=== PATIENT | female | born 1995 | race Caucasian/White ===

== ENCOUNTER 2016-11-27 15:03 | Inpatient (IN) | payer MEDICAID, OTHER ==
[~2016-11-27] VITALS: Ht 154.9 cm; Wt 91.4 kg
[~2016-11-27 15:03] MED LIST: AMBI12.52 PO; CELE20TA PO; PRENTAB74 PO; PROZ20CA11 PO; TRAZ50TA11 PO; VIST50CA PO; [UNRECOGNIZED DRUG - REMARK]
[2016-11-27] MEDS ORDERED: ATOR1TAB21 PO (15:12)
[2016-11-27] MEDS ORDERED: MELA5TAB20 PO (15:12)
[2016-11-27] MEDS ORDERED: HYDR-3363 PO (15:12)
[2016-11-27] MEDS ORDERED: FLUO20CA8 PO (15:12)
[2016-11-27] MEDS ORDERED: RANI150T PO (15:12)
[2016-11-27] MEDS ORDERED: PHEN30CA2 PO (15:12)
[2016-11-27] MEDS ORDERED: METF-414 PO (15:12)
[2016-11-27 15:24] LABS: BASO % 0.4 % (0.0-1.0); EOS # 0.2 K/mm3 (0.0-0.50); EOS % 2.9 % (0.0-3.0); LARGE UNSTAINED CELL # 0.2 K/mm3 (0.0-0.4); LARGE UNSTAINED CELL % 2.8 % (0.0-4.0); LYMPH # 2.3 K/mm3 (1.5-6.5); LYMPH % 32.7 % (24.0-44.0); MEAN CORPUSCULAR HEMOGLOBIN 30.7 pg (27.0-33.0); MEAN CORPUSCULAR HGB CONC 34.2 g/dl (32.0-36.5); MEAN CORPUSCULAR VOLUME 89.8 fl (80.0-96.0); MONO # 0.4 K/mm3 (0.0-0.8); MONO % 6.1 % (0.0-5.0); NEUTROPHILS # 3.9 K/mm3 (1.8-7.7); NEUTROPHILS % 55.2 % (36.0-66.0); PLATELET COUNT, AUTOMATED 240 k/mm3 (150-450); RED CELL DISTRIBUTION WIDTH 13.4 % (11.5-14.5); WHITE BLOOD COUNT 7.1 K/mm3 (4.0-10.0)
[2016-11-27 15:51] LABS: ALBUMIN 3.7 GM/DL (3.2-5.2); ALBUMIN/GLOBULIN RATIO 1.19 (1.00-1.93); ALKALINE PHOSPHATASE 127 U/L (45-117); ALT/SGPT 25 U/L (12-78); ANION GAP 8 MEQ/L (8-16); AST/SGOT 16 U/L (15-37); BILIRUBIN,DIRECT < 0.1 MG/DL (0.0-0.2); BILIRUBIN,TOTAL 0.3 MG/DL (0.2-1.0); BLOOD UREA NITROGEN 12 MG/DL (7-18); CARBON DIOXIDE LEVEL 26 MEQ/L (21-32); CHLORIDE LEVEL 105 MEQ/L (98-107); CREATININE FOR GFR 0.79 MG/DL (0.55-1.02); GLOMERULAR FILTRATION RATE > 60.0 (>60); GLUCOSE, FASTING 212 MG/DL (70-105); SODIUM LEVEL 139 MEQ/L (136-145); TOTAL PROTEIN 6.8 GM/DL (6.4-8.2)
[2016-11-27 16:11] LABS: METHADONE URINE NEGATIVE (NEGATIVE)
[2016-11-27] MEDS ORDERED: CHARCOAL ACTIVATED LIQUID 25 GM/120 ML BTL PO ONE (16:30)
[2016-11-27 19:17] LABS: ALBUMIN 3.6 GM/DL (3.2-5.2); ALKALINE PHOSPHATASE 120 U/L (45-117); ALT/SGPT 26 U/L (12-78); AST/SGOT 12 U/L (15-37); BILIRUBIN,DIRECT 0.1 MG/DL (0.0-0.2); BILIRUBIN,TOTAL 0.2 MG/DL (0.2-1.0); TOTAL PROTEIN 6.6 GM/DL (6.4-8.2)
[2016-11-27] MEDS ORDERED: TRAM50TA2 PO (21:29)
--- NOTE | 2016-11-27 21:43 | ECGEPIP ---
Stationary ECG Study [facility] - ED Test Date: 2016-11-27 Pat Name: LILIANA GOMEZ Department: Room: - Gender: F In Home Nanny: selina : 1995 Requested By: CARLITOS Sultana Order Number: [id number] Reading MD: Linn Rene Measurements Intervals [place] Rate: 109 P: 51 LA: 134 QRS: 44 QRSD: 86 T: -1 QT: 260 QTc: 350 Interpretive Statements SINUS TACHYCARDIA NONSPECIFIC T-WAVE ABNORMALITY ABNORMAL RHYTHM ECG INCREASE RATE 07/21/14 Electronically Signed On 11-27-2016 21:43:25 EDT by Linn Rene
[2016-11-27] MEDS ORDERED: MOM 30ML SUSPENSION UDC PO PRN (23:30)
[2016-11-28 06:33] VITALS: BP 113/64
[2016-11-28] MEDS: FLUoxetine 20 MG CAP PO SCH (08:31)
[2016-11-28] MEDS: ATORVASTATIN 20 MG TAB PO SCH (08:31)
[2016-11-28] MEDS: NICOTINE 14 MG/24 HR TRANSDERMAL TD SCH (08:32)
[2016-11-28] MEDS ORDERED: raNITIdine SYRUP 150 MG/10 ML UDC PO SCH (09:00)
[2016-11-28 11:41] LABS: CONTROL LINE HCG INT CTR LINE PRESENT
[2016-11-28] MEDS: metFORMIN XR 500MG TAB *GLUCOPHAGE XR PO SCH ×2 (12:17→19:04)
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
[2016-11-28 18:00] VITALS: BP 173/80
[2016-11-28] MEDS ORDERED: metFORMIN XR 500MG TAB *GLUCOPHAGE XR PO SCH (18:00)
[2016-11-28] MEDS: traZODone 50 MG TAB PO PRN (20:36)
[2016-11-28] MEDS: ACETAMINOPHEN TAB 650MG DOSE (2X325MG) PO PRN (20:38)
[2016-11-28] MEDS: raNITIdine SYRUP 150 MG/10 ML UDC PO SCH (21:00)
[2016-11-29 07:28] VITALS: BP 118/63
[2016-11-29] MEDS: metFORMIN XR 500MG TAB *GLUCOPHAGE XR PO SCH ×2 (08:21→18:55)
[2016-11-29] MEDS: FLUoxetine 20 MG CAP PO SCH (08:21)
[2016-11-29] MEDS: ATORVASTATIN 20 MG TAB PO SCH (08:21)
[2016-11-29] MEDS: NICOTINE 14 MG/24 HR TRANSDERMAL TD SCH (08:21)
--- NOTE | 2016-11-29 16:35 | HPE ---
DATE OF ADMISSION: 11/27/2016 PRIMARY CARE PROVIDER: She goes to the [facility] in [place]. Please refer to psychiatric history and evaluation for further details on this admission. This examination and history is intended for medical issues which may need treatment, followup or consultation on this 21-year-old female who overdosed on 10-15 tramadol and was stabilized in the emergency room. SOCIAL HISTORY: She lives in [place]. She is single and lives with her parents. She has one son. She drinks 1-2 drinks a week. She smokes one-half pack of cigarettes per day. She smokes marijuana. PAST MEDICAL HISTORY: 1. Hypercholesterolemia. 2. Migraine headaches. 3. Slight decreased hearing, left ear. 4. History of seizure times one following drug abuse in 2010, none since. 5. History of depression. 6. Attention deficit hyperactivity disorder (ADHD). 7. Anxiety. 8. Gastroesophageal reflux disease (GERD). 9. Xvy-qkdbduf-nrnaxcqtu diabetes. PAST SURGICAL HISTORY: Cholecystectomy. ALLERGIES: No known allergies. EKG showed sinus tachycardia of 109. HOME MEDICATIONS: - atorvastatin 20 mg by mouth daily - fluoxetine 20 mg by mouth daily - hydroxyzine 25 mg by mouth daily as needed for anxiety - melatonin 5 mg by mouth at bedtime - metformin 1000 mg by mouth twice a day - phentermine 30 mg by mouth daily - ranitidine 150 mg by mouth daily - tramadol 50 mg by mouth every six hours as needed for pain LABORATORY STUDIES: WBC 7.1, hemoglobin 15.1, hematocrit 44.1, and platelets 240. Electrolytes were normal. BUN was 12, creatinine 0.79, nonfasting glucose was 212, fasting glucose was 117, hemoglobin A1c was 5.7. Urine for toxicology: Initial acetaminophen was 32.6, repeat four hours later was 13.6. REVIEW OF SYSTEMS: Ten systems review was done and other than feeling slightly lightheaded, she had no complaints. PHYSICAL EXAMINATION: Height 61 inches. Weight 93.6 kg. Body Mass Index (BMI) 39. Temperature 97.9, pulse 83, respirations 14, blood pressure 116/79. The patient is alert and oriented. Pupils are equal and reactive to light. Extraocular muscles intact. Sclerae clear. Conjunctivae normal. No facial asymmetry. Pharynx, gums and tongue pink and moist. Tongue is midline. Neck is supple without lymphadenopathy. No thyromegaly. No goiter. Carotids 2+ without bruit. Chest is clear to auscultation without wheeze or retraction. Heart is regular. Abdomen is benign. Bowel sounds positive. Genitourinary/Rectal: Not done. Extremities show equal strength, full range of motion. No clubbing, cyanosis, or edema. Negative Romberg. Gait steady. Peripheral pulses equal and palpable bilaterally. Skin is warm and dry. Cranial nerves II-XII grossly intact. IMPRESSION/PLAN: 1. Psychiatric plan per psychiatry. 2. History of migraines, stable. 3. History of gastroesophageal reflux disease (GERD), stable. 4. Zck-bjpifue-qxxuxlapz diabetes, type 2. Continue metformin. Consistent-carbohydrate diet. Fingerstick blood sugars twice a day. 5. Hypercholesterolemia. Continue atorvastatin. 6. Continue to followup with primary care provider on discharge.
--- NOTE | 2016-11-29 17:55 | MHIPNPDOC ---
[facility] Progress Note Progress Note DATE OF SERVICE: 11/29/16 HISTORY: Patient stated she slept well and felt better than she did upon admission. 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 She indicated that her day was filled with taking care of her 4 year old son, "making sure he gets out of the house", as well as watching the dogs for the family. She also stated she did some cleaning in the house but that her family wanted her to clean more "and they'll just bitch at me anyways". She states she does not enjoy living with her family but is defeatist in nature when asked about jobs stating "the nearest place is 10 minutes away by car and they won't let me drive". When asked how she would change her life to make things better she states "I'd make my brain not be depressed." Patient endorsed not wanting to have her son while and being depressed while but stated his brought her damián ; however, now she feels she yells at him a lot and he does not listen to her. She is frustrated with her family because when she attempts to discipline her son the family yells at her. VITAL SIGNS: See below. NEW TEST RESULTS: see below CURRENT MEDICATIONS: See below. MENTAL STATUS EXAMINATION: Patient is a 21-year old female, who appears the stated age; is dressed in [facility] with fair hygiene, makes intermittent eye contact throughout the interview Speech: Is fluent, normal volume and tone Thought processes including: linear, coherent Thought content: frustrated regarding her home situation; denies SI/HI. Abstract reasoning, and computation: limited, appears somewhat concrete. Description of associations: intact Description of abnormal or psychotic thoughts: denies auditory/visual hallucinations, does not appear internally preoccupied; no paranoid or delusional thoughts elicited Judgment: poor Insight: poor Orientation: x3. Recent and remote memory: intact Attention span and concentration: intact Mood: "better". Affect: flat, incongruent to stated mood. DIAGNOSES: Major Depressive Disorder Borderline Personality Disorder ASSESSMENT: The patient has a difficult time accepting responsibility for her actions and their contribution to her current presentation. She prefers to externalize all of her problems, and specifically likes to lump the blame onto her family. Although she likely does have unstable family dynamics this is also not the only explanation for her current behavior. Patient does evidence low self-esteem as she seems to identify that she is different than all of her siblings and lists traits that could be construed as "a problem child". She remains hopeless about changing her home situation but has been otherwise stable while here. She would likely benefit from medication to help with her impulsive traits. MANAGEMENT PLAN: start Risperdal 1mg BID for impulsivity and mood; discontinue fluoxetine, patient felt little benefit; start Celexa 20mg for mood; encourage patient to continue with group participation while on the unit TIME SPENT: 20 minutes. Vital Signs Vital Signs Date Time Temp Pulse Resp B/P (MAP) Pulse Ox O2 Delivery O2 Flow Rate FiO2 11/29/16 07:28 99.4 77 14 118/63 (81) 11/27/16 21:08 96 Room Air Laboratory Data 24H Labs Laboratory Tests 2 11/29/16 06:15: Bedside Glucose (Misc Panel) 83 Current Medications Current Medications Acetaminophen (Tylenol Tab) 650 mg Q6HP PRN PO HEADACHE or DISCOMFORT Last administered on 11/28/16 20:38; Start 11/27/16 at 23:30; Stop 12/27/16 at 23:29 Al Hydrox/Mg Hydrox/Simethicone (Mylanta) 30 ml Q4HP PRN PO HEARTBURN/ INDIGESTION; Start 11/27/16 at 23:30; Stop 12/27/16 at 23:29 Atorvastatin Calcium (Lipitor) 20 mg DAILY PO Last administered on 11/29/16 08 :21; Start 11/28/16 at 09:00; Stop 12/28/16 at 08:59 Citalopram Hydrobromide (CeleXA) 20 mg DAILY PO ; Start 11/30/16 at 09:00; Stop 12/30/16 at 08:59 Fluoxetine HCl (PROzac) 20 mg DAILY PO Last administered on 11/29/16 08:21; Start 11/28/16 at 09:00; Stop 11/29/16 at 15:48; Status DC Home Med (Med Rec Complete!) ASDIRECTED XX ; Start 11/27/16 at 21:30; Stop at 21:31; Status DC Magnesium Hydroxide (Milk Of Magnesia) 30 ml DAILYPRN PRN PO CONSTIPATION; Start 11/27/16 at 23:30; Stop 12/27/16 at 23:29 Metformin HCl (Glucophage Xr) 1,000 mg BID@0800,1800 PO Last administered on 08:21; Start 11/28/16 at 08:00; Stop 12/28/16 at 07:59 Metformin HCl (Glucophage Xr) 2,000 mg DAILY@18 PO ; Start 11/28/16 at 18:00; Stop 11/28/16 at 18:00; Status DC Nicotine (Nicoderm Cq 14mg) 1 patch DAILY TD Last administered on 11/29/16 08: 21; Start 11/28/16 at 09:00; Stop 12/28/16 at 08:59 Ranitidine HCl (Zantac) 150 mg DAILY PO ; Start 11/28/16 at 09:00; Stop at 21:29; Status DC Ranitidine HCl (Zantac) 150 mg QHS PO ; Start 11/28/16 at 21:00; Stop 12/28/16 at 20:59 Ranitidine HCl (Zantac) 150 mg QHS PO ; Start 11/29/16 at 21:00; Stop 11/29/16 at 21:00; Status DC Risperidone (RisperDAL) 1 mg BID PO ; Start 11/29/16 at 21:00; Stop 12/29/16 at 20:59 Trazodone HCl (Desyrel) 50 mg QHSP PRN PO INSOMNIA Last administered on 20:36; Start 11/27/16 at 23:30; Stop 12/27/16 at 23:29 Allergies Coded Allergies: No Known Drug Allergy (Verified Allergy, Unknown, 11/27/16) YVETTE COLLADO MD Nov 29, 2016 17:55
[2016-11-29 18:00] VITALS: BP 132/78
[2016-11-29] MEDS ORDERED: raNITIdine SYRUP 150 MG/10 ML UDC PO SCH (21:00)
[2016-11-29] MEDS: raNITIdine SYRUP 150 MG/10 ML UDC PO SCH (21:19)
[2016-11-29] MEDS: risperiDONE 1 MG TAB PO SCH (21:19)
[2016-11-29] MEDS: traZODone 50 MG TAB PO PRN (22:28)
[2016-11-29] MEDS: ACETAMINOPHEN TAB 650MG DOSE (2X325MG) PO PRN (22:29)
[2016-11-30 06:59] VITALS: BP 99/54
[2016-11-30] MEDS: metFORMIN XR 500MG TAB *GLUCOPHAGE XR PO SCH ×2 (08:06→17:25)
[2016-11-30] MEDS: ATORVASTATIN 20 MG TAB PO SCH (08:06)
[2016-11-30] MEDS: risperiDONE 1 MG TAB PO SCH ×2 (08:06→21:11)
[2016-11-30] MEDS: NICOTINE 14 MG/24 HR TRANSDERMAL TD SCH (08:07)
[2016-11-30] MEDS ORDERED: CitaloPRAM (CeleXA) 20 MG TAB PO SCH (09:00)
[2016-11-30] MEDS: MAALOX 30 ML SUSP *UDC PO PRN (13:52)
--- NOTE | 2016-11-30 16:34 | MHIPNPDOC ---
[facility] Progress Note Progress Note DATE OF SERVICE: 11/30/16 HISTORY: Patient states she is very tired today and does not know why. She feels that her mood is relatively unchanged since her admission, however she feels that she would be fine with returning home on Monday. She is unable to provide strategies to cope with her current situation at home and cannot describe how she would be able to cope. Other than sleepiness she denies experiencing side effects from her new medication regimen. VITAL SIGNS: See below. NEW TEST RESULTS: see below CURRENT MEDICATIONS: See below. MENTAL STATUS EXAMINATION: Patient is a 21-year old female, who appears the stated age; dressed in [facility] with fair hygiene/grooming; calm and cooperative with interview , makes appropriate eye contact Speech: Is fluent, normal volume and rhythm Thought processes including: linear, coherent Thought content: [id number]-stgmaklb, defeatist, displaces blame to others actions ; Abstract reasoning, and computation: concrete . Description of associations: intact Description of abnormal or psychotic thoughts: denies SI, HI, or AVH, does not appear to be responding to internal stimuli; no evidence of paranoia or delusional thought processes Judgment: fair Insight: poor Orientation: x3 Recent and remote memory: intact Attention span and concentration: intact Fund of knowledge: appropriate for age and education Mood: "about the same". Affect: dysphoric, blunted range; congruent to stated mood and thought content DIAGNOSES: Major Depressive Disorder Borderline Personality Disorder with Dependent Personality Features ASSESSMENT: The patient has remained stable during her hospital stay and has been participating in group activities. She has not voiced any suicidal ideation and feels comfortable returning home, however she is not in her usual habitation and does not have her regular stressors impacting her at this time. She indicates that her family has not come to visit her and she has expressed the thought that her family will not engage in a family meeting prior to discharge. At this time the patient continues to refuse or be unable to plan for her future and engage in safe discharge planning. Will continue to evaluate her, however she appears to be at baseline stability. Was started on Risperdal yesterday and has had no side effects other than increased somnolence. MANAGEMENT PLAN: Increase Celexa to 30mg daily; encourage patient to stay awake and participate in group activities with a focus on learning coping skills; encourage patient to engage in future planning; begin discharge planning with goal of discharging patient on 12/02 TIME SPENT: 15 minutes. Vital Signs Vital Signs Date Time Temp Pulse Resp B/P (MAP) Pulse Ox O2 Delivery O2 Flow Rate FiO2 11/30/16 06:59 97.8 83 16 99/54 (69) 11/29/16 18:00 Room Air 11/27/16 21:08 96 Laboratory Data 24H Labs Laboratory Tests 2 11/30/16 06:14: Bedside Glucose (Misc Panel) 86 Current Medications Current Medications Acetaminophen (Tylenol Tab) 650 mg Q6HP PRN PO HEADACHE or DISCOMFORT Last administered on 11/29/16 22:29; Start 11/27/16 at 23:30; Stop 12/27/16 at 23:29 Al Hydrox/Mg Hydrox/Simethicone (Mylanta) 30 ml Q4HP PRN PO HEARTBURN/ INDIGESTION Last administered on 11/30/16 13:52; Start 11/27/16 at 23:30; Stop 12/27/16 at 23:29 Atorvastatin Calcium (Lipitor) 20 mg DAILY PO Last administered on 11/30/16 08 :06; Start 11/28/16 at 09:00; Stop 12/28/16 at 08:59 Citalopram Hydrobromide (CeleXA) 20 mg DAILY PO Last administered on 11/30/16 08:06; Start 11/30/16 at 09:00; Stop 11/30/16 at 12:05; Status DC Citalopram Hydrobromide (CeleXA) 40 mg DAILY PO ; Start 12/01/16 at 09:00; Stop 12/31/16 at 08:59 Fluoxetine HCl (PROzac) 20 mg DAILY PO Last administered on 11/29/16 08:21; Start 11/28/16 at 09:00; Stop 11/29/16 at 15:48; Status DC Home Med (Med Rec Complete!) ASDIRECTED XX ; Start 11/27/16 at 21:30; Stop at 21:31; Status DC Magnesium Hydroxide (Milk Of Magnesia) 30 ml DAILYPRN PRN PO CONSTIPATION; Start 11/27/16 at 23:30; Stop 12/27/16 at 23:29 Metformin HCl (Glucophage Xr) 1,000 mg BID@0800,1800 PO Last administered on 08:06; Start 11/28/16 at 08:00; Stop 12/28/16 at 07:59 Metformin HCl (Glucophage Xr) 2,000 mg DAILY@18 PO ; Start 11/28/16 at 18:00; Stop 11/28/16 at 18:00; Status DC Nicotine (Nicoderm Cq 14mg) 1 patch DAILY TD Last administered on 11/30/16 08: 07; Start 11/28/16 at 09:00; Stop 12/28/16 at 08:59 Ranitidine HCl (Zantac) 150 mg DAILY PO ; Start 11/28/16 at 09:00; Stop at 21:29; Status DC Ranitidine HCl (Zantac) 150 mg QHS PO Last administered on 11/29/16 21:19; Start 11/28/16 at 21:00; Stop 12/28/16 at 20:59 Ranitidine HCl (Zantac) 150 mg QHS PO ; Start 11/29/16 at 21:00; Stop 11/29/16 at 21:00; Status DC Risperidone (RisperDAL) 1 mg BID PO Last administered on 11/30/16 08:06; Start 11/29/16 at 21:00; Stop 12/29/16 at 20:59 Trazodone HCl (Desyrel) 50 mg QHSP PRN PO INSOMNIA Last administered on 22:28; Start 11/27/16 at 23:30; Stop 12/27/16 at 23:29 Allergies Coded Allergies: No Known Drug Allergy (Verified Allergy, Unknown, 11/27/16) YVETTE COLLADO MD Nov 30, 2016 16:34
[2016-11-30 18:00] VITALS: BP 134/74
[2016-11-30] MEDS: traZODone 50 MG TAB PO PRN (21:11)
[2016-11-30] MEDS: raNITIdine SYRUP 150 MG/10 ML UDC PO SCH (21:11)
[2016-12-01 06:14] VITALS: BP 135/74
[2016-12-01] MEDS: ATORVASTATIN 20 MG TAB PO SCH (08:45)
[2016-12-01] MEDS: NICOTINE 14 MG/24 HR TRANSDERMAL TD SCH (08:46)
[2016-12-01] MEDS: metFORMIN XR 500MG TAB *GLUCOPHAGE XR PO SCH ×2 (08:46→17:02)
[2016-12-01] MEDS: CitaloPRAM (CeleXA) 20 MG TAB PO SCH (08:46)
[2016-12-01] MEDS: risperiDONE 1 MG TAB PO SCH (08:47)
[2016-12-01] MEDS: MAALOX 30 ML SUSP *UDC PO PRN (12:44)
--- NOTE | 2016-12-01 16:58 | MHIPNPDOC ---
[facility] Progress Note Progress Note DATE OF SERVICE: 12/01/16 HISTORY: Patient reports that her mood is mildly improved and she feels the medications are working well but they make her very sleepy. She expresses some concern that her parents will not wish her to return home and seek further hospitalization because they do not trust that her medications are working. She states she is thinking about getting a job at a bar near her house upon discharge. VITAL SIGNS: See below. NEW TEST RESULTS: see below CURRENT MEDICATIONS: See below. MENTAL STATUS EXAMINATION: Patient is a 21-year old female, who appears stated age, dressed in hospital gown with fair hygiene; calm and cooperative with interview, intermittent eye contact Speech: Is fluent, normal rate and tone Thought processes including: logical, linear, coherent Thought content: denies SI/HI Description of abnormal or psychotic thoughts: denies AVH, does not appear to be responding to internal stimuli; no evidence of paranoid or delusional thoughts Judgment: fair Insight: poor Orientation: x3. Recent and remote memory: intact Attention span and concentration: intact Mood: "better". Affect: neutral, blunted range; congruent to stated mood DIAGNOSES: Major Depressive Disorder Borderline Personality Disorder ASSESSMENT: Patient has been responding well to medication changes and has been engaging in group activities. She has been noted to be laughing and joking with peers on the unit. At this time she appears to be increasingly forward thinking and developing some plans for discharge. She has been experiencing increased somnolence, likely from the Risperdal, and would benefit from a reduction in her daytime dose. Patient appears stable without safety concerns at this time, will begin working on discharge planning for patient and attempt to contact her family. MANAGEMENT PLAN: reduce Risperdal to 0.5mg QAM and 1mg QHS; continue other medications as prescribed; encourage patient to participate in group activities ; encourage patient to developing coping skills for managing her family stress TIME SPENT: 15 minutes. Vital Signs Vital Signs Date Time Temp Pulse Resp B/P (MAP) Pulse Ox O2 Delivery O2 Flow Rate FiO2 12/01/16 06:14 99.0 84 16 135/74 (94) 11/30/16 18:00 Room Air 11/27/16 21:08 96 Current Medications Current Medications Acetaminophen (Tylenol Tab) 650 mg Q6HP PRN PO HEADACHE or DISCOMFORT Last administered on 11/29/16t 22:29; Start 8/20/17 at 23:30; Stop 12/27/16 at 23:29 Al Hydrox/Mg Hydrox/Simethicone (Mylanta) 30 ml Q4HP PRN PO HEARTBURN/ INDIGESTION Last administered on 12/01/16 12:44; Start 11/27/16 at 23:30; Stop 12/27/16 at 23:29 Atorvastatin Calcium (Lipitor) 20 mg DAILY PO Last administered on 12/01/16 08 :45; Start 11/28/16 at 09:00; Stop 12/28/16 at 08:59 Citalopram Hydrobromide (CeleXA) 20 mg DAILY PO Last administered on 11/30/16 08:06; Start 11/30/16 at 09:00; Stop 11/30/16 at 12:05; Status DC Citalopram Hydrobromide (CeleXA) 40 mg DAILY PO Last administered on 12/01/16 08:46; Start 12/01/16 at 09:00; Stop 12/31/16 at 08:59 Fluoxetine HCl (PROzac) 20 mg DAILY PO Last administered on 11/29/16 08:21; Start 11/28/16 at 09:00; Stop 11/29/16 at 15:48; Status DC Home Med (Med Rec Complete!) ASDIRECTED XX ; Start 11/27/16 at 21:30; Stop at 21:31; Status DC Magnesium Hydroxide (Milk Of Magnesia) 30 ml DAILYPRN PRN PO CONSTIPATION; Start 11/27/16 at 23:30; Stop 12/27/16 at 23:29 Metformin HCl (Glucophage Xr) 1,000 mg BID@0800,1800 PO Last administered on 08:46; Start 11/28/16 at 08:00; Stop 12/28/16 at 07:59 Metformin HCl (Glucophage Xr) 2,000 mg DAILY@18 PO ; Start 11/28/16 at 18:00; Stop 11/28/16 at 18:00; Status DC Nicotine (Nicoderm Cq 14mg) 1 patch DAILY TD Last administered on 12/01/16 08: 46; Start 11/28/16 at 09:00; Stop 12/28/16 at 08:59 Ranitidine HCl (Zantac) 150 mg DAILY PO ; Start 11/28/16 at 09:00; Stop at 21:29; Status DC Ranitidine HCl (Zantac) 150 mg QHS PO Last administered on 11/30/16 21:11; Start 11/28/16 at 21:00; Stop 12/28/16 at 20:59 Ranitidine HCl (Zantac) 150 mg QHS PO ; Start 11/29/16 at 21:00; Stop 11/29/16 at 21:00; Status DC Risperidone (RisperDAL) 0.25 mg QAM PO ; Start 12/02/16 at 09:00; Stop 01/01/17 at 08:59 Risperidone (RisperDAL) 1 mg BID PO Last administered on 12/01/16 08:47; Start 11/29/16 at 21:00; Stop 12/01/16 at 13:10; Status DC Risperidone (RisperDAL) 1 mg QHS PO ; Start 12/01/16 at 21:00; Stop 12/29/16 at 20:59 Trazodone HCl (Desyrel) 50 mg QHSP PRN PO INSOMNIA Last administered on 21:11; Start 11/27/16 at 23:30; Stop 12/27/16 at 23:29 Allergies Coded Allergies: No Known Drug Allergy (Verified Allergy, Unknown, 11/27/16) YVETTE COLLADO MD Dec 01, 2016 16:58
[2016-12-01 18:00] VITALS: BP 100/53
[2016-12-01] MEDS: traZODone 50 MG TAB PO PRN (20:57)
[2016-12-01] MEDS: raNITIdine SYRUP 150 MG/10 ML UDC PO SCH (20:57)
[2016-12-01] MEDS ORDERED: risperiDONE 1 MG TAB PO SCH (21:00)
[2016-12-02 06:45] VITALS: BP 137/75
[2016-12-02] MEDS: metFORMIN XR 500MG TAB *GLUCOPHAGE XR PO SCH (08:43)
[2016-12-02] MEDS: ATORVASTATIN 20 MG TAB PO SCH (08:43)
[2016-12-02] MEDS: CitaloPRAM (CeleXA) 20 MG TAB PO SCH (08:43)
[2016-12-02] MEDS: NICOTINE 14 MG/24 HR TRANSDERMAL TD SCH (08:44)
[2016-12-02] MEDS ORDERED: risperiDONE 0.25 MG TAB PO SCH (09:00)
[2016-12-02] MEDS ORDERED: RISP1TAB42 PO (11:39)
[2016-12-02] MEDS ORDERED: TRAZO50TA PO (11:39)
[2016-12-02] MEDS ORDERED: METF500T4 PO ×2 (11:39→11:41)
[2016-12-02] MEDS ORDERED: NICO14PA TD (11:39)
[2016-12-02] MEDS ORDERED: CELE20TA PO (11:39)
[2016-12-02] MEDS ORDERED: ATOR1TAB21 PO (11:39)
--- NOTE | 2016-12-02 22:29 | MHDSPDOC ---
[facility] Discharge Summary Discharge Summary DATE OF ADMISSION: Nov 27, 2016 at 21:15 DATE OF DISCHARGE: Dec 02, 2016 at 12:15 DISCHARGE DIAGNOSES: Major Depressive Disorder Borderline Personality Disorder REASON FOR ADMISSION: Suicide attempt via intentional ingestion of 500mg Tramadol and 10-15 25mg hydroxyzine CONSULTANTS INVOLVED: none TREATMENT AND PROGRESS ON THE UNIT : Patient was switched from fluoxetine to Celexa for depression and started on Risperdal for impulsivity and mood stabilization. She responded well to both switches with minimal side effects besides increased fatigue from the Risperdal. She was encouraged to attend group session to assist with developing new coping skills, she found that art/ crafting based coping skills worked well for her. HOSPITAL COURSE: Patient was admitted directly from the ED after medical stabilization. She was irritable and withdrawn at first, displaying extreme apathy in regards to her situation and motivations. Patient was encourage to attend group therapy to assist her in developing skills as well as encouraged to begin future planning on how to cope with stresses at home. She was started on Risperdal 1mg BID which she states made her feel very sleepy but helped her slow down her decision making. As she had reported that her previous antidepressant, fluoxetine, was not working well she was switched to Celexa and titrated upwards with good response. Throughout her stay she was encouraged to think about alternative responses to her family stressors, however patient remained relatively concrete in this situation. Due to the increased fatigue her Risperdal was decreased to 0.5mg QAM and 1mg QHS, then on the day of discharge the AM dose was ceased due to the fatigue. Patient remained unable to formulate strong future plans, however she did stat that she was planning on seeking employment for greater independence once she returned home. She felt that her primary stressors were her family and the control they have over her, however she displayed limited insight that her own apathy was interfering with her desire for independence. DISCHARGE ASSESSMENT: 21 year old woman with Major Depressive Disorder and Borderline Personality Disorder. She has demonstrated increased mood stability during this stay and is reporting that her overall mood has improved. She remains relatively hopeless in regards to her family situation but has developed plans, which if followed through, will gain her increased independence and remove some of the stressors which resulted in her admission. She repeatedly denied suicidality throughout her stay, although given her recent attempt she remains at increased risk from her baseline. Patient would likely benefit from psychotherapy specifically to address coping skills and decision making. Although she is at increased risk from her baseline there are no active safety concerns for herself or others and the patient appears able to take care of herself. Patient may be discharged with plan to follow-up with her regular outpatient providers. MENTAL STATUS EXAMINATION ON DISCHARGE: Patient is a 21-year old female, who appears stated age, dressed in hospital [facility], calm and cooperative, good eye contact Speech is fluent, normal volume and rate Thought processes including: logical, linear, coherent; concrete in nature Thought content: focused on returning home and getting a job; denies SI/HI Abstract reasoning, and computation: concrete, limited abstraction Description of associations: intact Description of abnormal or psychotic thoughts: no evidence of psychotic thoughts during interview, she denies AVH Judgment: fair Insight: poor Orientation to x3 Recent and remote memory: intact Attention span and concentration: intact Mood: "pretty good" Affect: euthymic; blunted range, congruent to stated mood/thought content MEDICATIONS ON DISCHARGE: See below. PLAN/FOLLOWUP ARRANGEMENTS: referral made to [facility]; TLS contacted and housing consult initiated The amount of time spent in the coordination of care for this patient was approximately 30 minutes. Vital Signs/I&Os Vital Signs Date Time Temp Pulse Resp B/P (MAP) Pulse Ox O2 Delivery O2 Flow Rate FiO2 12/02/16 06:45 97.4 87 18 137/75 (95) Room Air 11/27/16 21:08 96 Laboratory Data Labs 24H Laboratory Tests 2 12/02/16 09:50: Bedside Glucose (Misc Panel) 184H Medications Scheduled Atorvastatin Calcium (Atorvastatin Calcium) 20 Mg Tab, 20 MG PO DAILY for High Cholesterol, #7 Citalopram Hydrobromide (Celexa) 20 Mg Tab, 40 MG PO DAILY for MOOD, #14 Metformin Hydrochloride (Metformin HCl ER) 500 Mg Tab, 1,000 MG PO BID@0800, 1800 for PRE DIABETES, #28 Nicotine (Nicotine Transdermal Syst) 14 Mg/24 Hr Dis, 1 PATCH TD DAILY for SMOKING CESSATION, #7 Ranitidine HCl (Ranitidine HCl) 150 Mg Tab, 1 TAB PO DAILY, (Reported) Risperidone (Risperdal) 1 Mg Tab, 1 MG PO QHS for MOOD, #7 Scheduled PRN Trazodone HCl (Trazodone HCl) 50 Mg Tab, 50 MG PO QHSP PRN for INSOMNIA, #7 Allergies Coded Allergies: No Known Drug Allergy (Verified Allergy, Unknown, 11/27/16) YVETTE COLLADO MD Dec 02, 2016 22:29
== END 2016-12-02 12:15 | disposition home or self-care (01) | DRG 754 ==
LOC: EDBD 15:03 → M ED 15:03 → M ED INP 21:15 → M PSY 22:49
PROVIDERS: ADMIT Psychiatry & Neurology Psychiatry; ATTEND Psychiatry & Neurology Psychiatry
DX: F32.9 Major depressive disorder, single episode, unspecified (principal); F60.3 Borderline personality disorder; F43.10 Post-traumatic stress disorder, unspecified; E28.2 Polycystic ovarian syndrome; L68.0 Hirsutism; F17.210 Nicotine dependence, cigarettes, uncomplicated; G43.909 Migraine, unspecified, not intractable, without status migrainosus; T40.4X2A Poisoning by other synthetic narcotics, intentional self-harm, initial encounter; E78.00 Pure hypercholesterolemia, unspecified; T43.592A Poisoning by other antipsychotics and neuroleptics, intentional self-harm, initial encounter; H91.92 Unspecified hearing loss, left ear; F41.9 Anxiety disorder, unspecified; K21.9 Gastro-esophageal reflux disease without esophagitis; E11.9 Type 2 diabetes mellitus without complications; Z91.5 Personal history of self-harm; Z81.8 Family history of other mental and behavioral disorders; Z62.810 Personal history of physical and sexual abuse in childhood; Z79.84 Long term (current) use of oral hypoglycemic drugs; Z79.899 Other long term (current) drug therapy; Z79.891 Long term (current) use of opiate analgesic; Y92.009 Unspecified place in unspecified non-institutional (private) residence as the place of occurrence of the external cause; Y99.8 Other external cause status

== ENCOUNTER → 2017-02-23 | Outpatient (CLI) | payer OTHER ==
[~2017-02-23] MED LIST changes: +ATOR1TAB21 PO; +FLUO20CA8 PO; +HYDR-3363 PO; +MELA5TAB20 PO; +METF-414 PO; +METF500T4 PO; +NICO14PA TD; +PHEN30CA2 PO; +RANI150T PO; +RISP1TAB42 PO; +TRAM50TA2 PO; +TRAZO50TA PO
--- NOTE | 2017-02-23 11:57 | REP ---
Clinical: Diffuse left-sided abdominal pain. Technique: Arreola scale ultrasound using curved array transducer. Comparison: 04/23/2012. Findings: The liver suggest mild fatty infiltration without focal hepatic lesion identified. The spleen and pancreas are normal in contour, size, and echogenicity without focal splenic or pancreatic lesions identified. Evidence of prior cholecystectomy. No biliary ductal dilatation is appreciated, and the common bile duct measures 5.3 mm diameter. The bilateral kidneys are normal in reniform shape without hydronephrosis. Right kidney measures 11.3 x 6.5 x 3.8 cm. Left kidney measures 12.2 x 5.3 x 4.6 cm. No ascites. Visualized portions of the abdominal aorta normal and measure up to 1.8 cm diameter. Impression: Hepatic steatosis without focal hepatic lesion identified. Otherwise normal complete abdominal ultrasound. No other cholecystectomy. No ascites. Signed by Valentino Weldon MD 02/23/2017 11:48 A
--- NOTE | 2017-02-23 11:58 | REP ---
Clinical: Lower abdominal and pelvic pain. Technique: Transabdominal pelvic ultrasound followed by transvaginal examination for better evaluation of the endometrium and adnexa with color Doppler evaluation of the ovaries. Findings: Normal anteverted uterus measures 7.7 x 4.1 x 2.9 cm. The endometrial complex measures 5.4 mm thickness. Bilateral ovaries are normal in appearance and vascularity without torsion. Right ovary measures 3.9 x 2.1 x 3.0 cm; RI = 0.61. Left ovary measures 3.5 by point by 1.8 cm; RI = 0.54. No pelvic fluid or adnexal mass lesion. Bladder is unremarkable and measures 720 x 4.8 x 7.3 cm. Impression: Normal pelvic ultrasound. Signed by Valentino Weldon MD 02/23/2017 11:50 A
== END ==
LOC: M RAD 10:34
PROVIDERS: ATTEND Physician Assistant Medical
DX: R10.84 Generalized abdominal pain (principal); K76.0 Fatty (change of) liver, not elsewhere classified

== ENCOUNTER 2017-02-28 21:50 | Emergency (ER) | payer MEDICAID, OTHER ==
[~2017-02-28] VITALS: Ht 154.9 cm; Wt 90.9 kg
--- NOTE | 2017-02-28 22:37 | REP ---
Clinical: Pain . Technique: AP, lateral, bilateral oblique views left ankle . Findings: No acute fracture or dislocation. Skeletal structures and joint spaces are intact and normal. Ankle mortise appears stable. No subcutaneous emphysema or radiodense foreign body. Impression: Normal left ankle radiograph series. No acute fracture or dislocation. Signed by Valentino Weldon MD 02/28/2017 10:28 P
[2017-02-28] MEDS ORDERED: IBUPROFEN 600 MG TAB PO ONE (23:15)
[2017-02-28 23:19] VITALS: BP 118/56
== END 2017-02-28 23:20 | disposition home or self-care (01) ==
LOC: M ED 21:50
DX: S93.431A Sprain of tibiofibular ligament of right ankle, initial encounter (principal); X50.1XXA Overexertion from prolonged static or awkward postures, initial encounter; Y92.410 Unspecified street and highway as the place of occurrence of the external cause; Y93.01 Activity, walking, marching and hiking; Y99.8 Other external cause status; F41.9 Anxiety disorder, unspecified; F32.9 Major depressive disorder, single episode, unspecified; F17.200 Nicotine dependence, unspecified, uncomplicated; Z79.899 Other long term (current) drug therapy; Z79.84 Long term (current) use of oral hypoglycemic drugs

== ENCOUNTER → 2017-03-03 | Outpatient (CLI) | payer OTHER ==
[2017-03-03 11:35] LABS: BASO % 0.5 % (0.0-1.0); EOS # 0.3 10^3/uL (0.0-0.50); EOS % 4.1 % (0.0-3.0); IMMATURE GRANULOCYTE % 0.4 % (0-0); LYMPH # 2.6 10^3/uL (1.5-6.5); LYMPH % 31.8 % (24.0-44.0); MEAN CORPUSCULAR HEMOGLOBIN 28.9 pg (27.0-33.0); MEAN CORPUSCULAR HGB CONC 33.1 g/dl (32.0-36.5); MEAN CORPUSCULAR VOLUME 87.2 fl (80.0-96.0); MONO # 0.6 10^3/uL (0.0-0.8); MONO % 6.9 % (0.0-5.0); NEUTROPHILS # 4.6 10^3/uL (1.8-7.7); NEUTROPHILS % 56.3 % (36.0-66.0); PLATELET COUNT, AUTOMATED 247 10^3/uL (150-450); RED CELL DISTRIBUTION WIDTH 13.8 % (11.5-14.5); WHITE BLOOD COUNT 8.2 10^3/uL (4.0-10.0)
[2017-03-03 12:10] LABS: ALBUMIN 3.8 GM/DL (3.2-5.2); ALBUMIN/GLOBULIN RATIO 1.41 (1.00-1.93); ALKALINE PHOSPHATASE 100 U/L (45-117); ALT/SGPT 21 U/L (12-78); ANION GAP 7 MEQ/L (8-16); AST/SGOT 12 U/L (7-37); BILIRUBIN,TOTAL 0.4 MG/DL (0.2-1.0); BLOOD UREA NITROGEN 12 MG/DL (7-18); CALCIUM LEVEL 8.7 MG/DL (8.5-10.1); CARBON DIOXIDE LEVEL 27 MEQ/L (21-32); CHLORIDE LEVEL 104 MEQ/L (98-107); CHOLESTEROL LEVEL 128 MG/DL (<200); CREATININE FOR GFR 0.74 MG/DL (0.55-1.02); GLOMERULAR FILTRATION RATE > 60.0 (>60); GLUCOSE, FASTING 86 MG/DL (70-105); POTASSIUM SERUM 3.9 MEQ/L (3.5-5.1); SODIUM LEVEL 138 MEQ/L (136-145); T UPTAKE 32 % (30-39); THYROXINE (T4) 9.5 UG/DL (4.5-12.0); TOTAL PROTEIN 6.5 GM/DL (6.4-8.2); TRIGLYCERIDES LEVEL 253 MG/DL (<150)
== END ==
LOC: M LAB 10:58
PROVIDERS: ATTEND Physician Assistant Medical
DX: E78.2 Mixed hyperlipidemia (principal); E55.9 Vitamin D deficiency, unspecified

== ENCOUNTER 2017-03-11 20:37 | Emergency (ER) | payer OTHER ==
[~2017-03-11] VITALS: Ht 154.9 cm; Wt 90.9 kg
[2017-03-11] MEDS ORDERED: CITA40TA4 PO (20:46)
[2017-03-11 21:23] LABS: MEAN CORPUSCULAR HGB CONC 33.2 g/dl (32.0-36.5); MEAN CORPUSCULAR VOLUME 87.3 fl (80.0-96.0); PLATELET COUNT, AUTOMATED 261 10^3/uL (150-450); RED CELL DISTRIBUTION WIDTH 13.6 % (11.5-14.5); WHITE BLOOD COUNT 10.2 10^3/uL (4.0-10.0)
[2017-03-11] MEDS ORDERED: INDO25SU PO (21:36)
[2017-03-11] MEDS ORDERED: INDOMETHACIN 25 MG CAP PO ONE (21:45)
[2017-03-11 21:57] VITALS: BP 121/83
--- NOTE | 2017-03-12 08:55 | REP ---
RIGHT TOES, FOUR VIEWS: HISTORY: First toe pain. There is no acute fracture or dislocation. The joint spaces are normal in appearance. IMPRESSION: There is no acute fracture or dislocation. Signed by Jose E Newman MD 03/12/2017 09:29 A
[2017-03-12] MEDS ORDERED: ATOR1TAB21 PO (21:22)
[2017-03-12] MEDS ORDERED: METF10004 PO (21:22)
[2017-03-12] MEDS ORDERED: TYLE500T78 PO (21:23)
== END 2017-03-11 22:10 | disposition home or self-care (01) ==
LOC: M ED 20:37
DX: M19.071 Primary osteoarthritis, right ankle and foot (principal); E11.9 Type 2 diabetes mellitus without complications; F17.200 Nicotine dependence, unspecified, uncomplicated; Z79.899 Other long term (current) drug therapy; Z79.84 Long term (current) use of oral hypoglycemic drugs

== ENCOUNTER 2017-03-12 20:27 | Inpatient (IN) | payer OTHER ==
[~2017-03-12] VITALS: Ht 154.9 cm; Wt 92.0 kg
[~2017-03-12 20:27] MED LIST changes: +CITA40TA4 PO; +INDO25SU PO
[2017-03-12] MEDS ORDERED: METF10004 PO (21:22)
[2017-03-12] MEDS ORDERED: ATOR1TAB21 PO (21:22)
[2017-03-12] MEDS ORDERED: TYLE500T78 PO (21:23)
[2017-03-12 21:55] LABS: MEAN CORPUSCULAR HEMOGLOBIN 29.1 pg (27.0-33.0); MEAN CORPUSCULAR HGB CONC 33.2 g/dl (32.0-36.5); MEAN CORPUSCULAR VOLUME 87.6 fl (80.0-96.0); PLATELET COUNT, AUTOMATED 242 10^3/uL (150-450); RED CELL DISTRIBUTION WIDTH 13.6 % (11.5-14.5); WHITE BLOOD COUNT 9.5 10^3/uL (4.0-10.0)
[2017-03-12 22:33] LABS: CONTROL LINE HCG INT CTR LINE PRESENT
[2017-03-12 22:48] LABS: METHADONE URINE NEGATIVE (NEGATIVE)
[2017-03-12 22:51] LABS: ALBUMIN 3.6 GM/DL (3.2-5.2); ALBUMIN/GLOBULIN RATIO 1.13 (1.00-1.93); ALKALINE PHOSPHATASE 109 U/L (45-117); ALT/SGPT 20 U/L (12-78); ANION GAP 6 MEQ/L (8-16); AST/SGOT 10 U/L (7-37); BILIRUBIN,DIRECT < 0.1 MG/DL (0.0-0.2); BILIRUBIN,TOTAL 0.2 MG/DL (0.2-1.0); BLOOD UREA NITROGEN 17 MG/DL (7-18); CARBON DIOXIDE LEVEL 29 MEQ/L (21-32); CHLORIDE LEVEL 105 MEQ/L (98-107); CREATININE FOR GFR 0.64 MG/DL (0.55-1.02); GLOMERULAR FILTRATION RATE > 60.0 (>60); GLUCOSE, FASTING 81 MG/DL (70-105); SODIUM LEVEL 140 MEQ/L (136-145); TOTAL PROTEIN 6.8 GM/DL (6.4-8.2)
[2017-03-13 00:05] VITALS: BP 136/90
[2017-03-13] MEDS ORDERED: MAALOX 30 ML SUSP *UDC PO PRN (01:00)
[2017-03-13] MEDS ORDERED: MOM 30ML SUSPENSION UDC PO PRN (01:00)
[2017-03-13] MEDS ORDERED: CitaloPRAM (CeleXA) 20 MG TAB PO ONE (01:30)
[2017-03-13 07:00] VITALS: BP 135/86
[2017-03-13] MEDS: raNITIdine SYRUP 150 MG/10 ML UDC PO SCH ×2 (08:21→21:22)
[2017-03-13] MEDS: NICOTINE 14 MG/24 HR TRANSDERMAL TD SCH (08:21)
[2017-03-13] MEDS: metFORMIN (GLUCOPHAGE) 1000 MG TABLET PO SCH ×2 (08:21→17:03)
--- NOTE | 2017-03-13 09:05 | HPEPDOC ---
[facility] Medical History & Physical Date of Admission Mar 12, 2017 History and Physical PCP: Justin LING ATTENDING: Dr. Jonathan Cm HPI: 21yoF admitted to [facility] for major depressive disorder, being medically examined today. No acute medical complaints today. Denies any fevers, chills, weakness, fatigue, LANG, CP, SOB, cough, palpitations, abdominal pain, N/V/D or changes in bowel or bladder habits. PMHx: GERD Anxiety Depression Borderline personality disorder NIDDM Obesity. BMI 38.3 History of seizure following substance use, 2014. PSHX: Cholecystectomy Doss teeth extraction Nexplanon SOCHX: Resides in: [place] Marital Status: Single Kids: 1 Employment: Unemployed Tobacco use: One half pack per day ETOH: Denies Illicit Drugs: History of Marijuana IV Drug Use: Denies Tattoos done unprofessionally: Denies FAMHX: Mother: Alive, unknown Father: Alive, unknown Siblings: 2 brothers, 2 sisters Alive, unknown Children: Alive, well Unexpected deaths due to medical reasons: None. ROS: As noted in HPI, otherwise 11pt ROS of systems reviewed and remarkable only for LMP unknown, patient states related to Nexplanon. PE: GEN: 21 yo F, appears stated age. Well-nourished, well developed. No acute distress. Alert and oriented x 3. Avoid eye contact, reluctant to answer questions. HEENT: Normocephalic, atraumatic. Pupils are equal, round, and reactive to light. Extraocular movements are intact. No nystagmus appreciated. Sclera are nonicteric. Conjunctiva without injection. Nose midline. Nasal turbinates without bogginess. EACs both patent BL. TMs both visualized and valenzuela with good cone of light, no bulging or erythema. No facial asymmetry. Moist mucous membranes. Dentition fair. Pharynx pink and moist, no cobblestoning. Neck supple , trachea midline. No lymphadenopathy or thyromegaly appreciated. CHEST: Regular rate and rhythm, +S1, +S2 LUNGS: Clear to auscultation bilaterally. No wheezes, rales, or rhonchi. Breathing appears symmetric and easy. Patient is speaking in full sentences. No accessory muscle use. ABD: Round, soft, non-tender, non-distended. +Bowel sounds throughout. No rebound or guarding. No costovertebral angle tenderness. EXT: Pulses 2+ bilaterally dorsalis pedis and radial. No lower extremity edema appreciated. SKIN: [place], dry, warm. Capillary refill <2sec. No rashes. NEURO: Alert and oriented x 3. Cranial nerves III-XII are intact. No focal deficits appreciated. EKG: pending A&P: 21yoF admitted to [facility] for major depressive disorder, 1. Psych. Plan per Psychiatry. Obtain baseline EKG to assure the safety of psychiatric medications as they can prolong the QT interval. 2. Nicotine dependence. Patch available. 3. GERD. Continue ranitidine daily. 4. Follow up with PCP on discharge. 5. NIDDM. Consistent carbohydrate diet. Continue metformin 1000 mg by mouth twice a day. Continue Lipitor 20 mg by mouth daily. Fingerstick blood sugar twice a day. 6. Obesity. BMI 38.3. Complicates care. 7. Staff member Yesi MOBLEY present throughout exam. Vital Signs Vital Signs Date Time Temp Pulse Resp B/P (MAP) Pulse Ox O2 Delivery O2 Flow Rate FiO2 03/13/17 07:00 99.4 78 16 135/86 (102) 03/13/17 00:05 98 Room Air Laboratory Data Labs 24H Laboratory Tests 2 03/12/17 21:45: Nucleated Red Blood Cells % (auto) 0.0, Anion Gap 6L, Glomerular Filtration Rate > 60.0, Calcium Level 9.0, Aspartate Amino Transf (AST/SGOT) 10, Alanine Aminotransferase (ALT/SGPT) 20, Alkaline Phosphatase 109, Total Bilirubin 0.2, Direct Bilirubin < 0.1, Total Protein 6.8, Albumin 3.6, Albumin/Globulin Ratio 1.13, Thyroid Stimulating Hormone (TSH) 1.680, Human Chorionic Gonadotropin, Qual NEGATIVE, Salicylates Level 2.8L, Acetaminophen Level < 2.0L, Ethyl Alcohol Level < 0.003 03/12/17 22:14: Urine Amphetamines Screen NEGATIVE, Urine Benzodiazepines Screen NEGATIVE, Urine Opiates Screen NEGATIVE, Urine Methadone Screen NEGATIVE, Urine Barbiturates Screen NEGATIVE, Urine Phencyclidine Screen NEGATIVE, Urine Cocaine Metabolite Screen NEGATIVE, Urine Cannabinoids Screen NEGATIVE CBC/BMP Laboratory Tests 03/12/17 21:45 Red Blood Count 4.85, Mean Corpuscular Volume 87.6, Mean Corpuscular Hemoglobin 29.1, Mean Corpuscular Hemoglobin Concent 33.2, Red Cell Distribution Width 13.6 Home Medications Scheduled Acetaminophen (Tylenol Extra Strength) 500 Mg Tab, 1,000 MG PO QHS Atorvastatin Calcium (Atorvastatin Calcium) 20 Mg Tab, 20 MG PO QHS Citalopram Hydrobromide (Citalopram Hydrobromide) 40 Mg Tab, 40 MG PO QHS Metformin Hydrochloride (Metformin HCl) 1,000 Mg Tab, 1,000 MG PO BID Ranitidine HCl (Ranitidine HCl) 150 Mg Tab, 1 TAB PO QHS Allergies Coded Allergies: No Known Drug Allergy (Verified Allergy, Unknown, 11/27/16) Megha Long Mar 13, 2017 09:05
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
[2017-03-13 18:00] VITALS: BP 117/57
--- NOTE | 2017-03-13 18:41 | ECGEPIP ---
Stationary ECG Study [facility] Test Date: 2017-03-13 Pat Name: LILIANA GOMEZ Department: Room: [place] [address] Gender: F Freedom Of Information Officer: HERMINIA : 1995 Requested By: Megha Long Order Number: [id number] Reading MD: Lucas Jacobs Measurements Intervals [place] Rate: 79 P: 24 IN: 132 QRS: 44 QRSD: 84 T: 30 QT: 361 QTc: 416 Interpretive Statements SINUS RHYTHM Normal Electronically Signed On 03-13-2017 18:40:49 EST by Lucas Jacobs
[2017-03-13] MEDS: ACETAMINOPHEN 500 MG TAB PO SCH (21:22)
[2017-03-13] MEDS: CitaloPRAM (CeleXA) 20 MG TAB PO SCH (21:22)
[2017-03-13] MEDS: ATORVASTATIN 20 MG TAB PO SCH (21:22)
[2017-03-13] MEDS: traZODone 50 MG TAB PO PRN (22:52)
[2017-03-14 07:00] VITALS: BP 112/58
[2017-03-14] MEDS: metFORMIN (GLUCOPHAGE) 1000 MG TABLET PO SCH ×2 (08:26→17:03)
[2017-03-14] MEDS: NICOTINE 14 MG/24 HR TRANSDERMAL TD SCH (08:26)
[2017-03-14] MEDS: raNITIdine SYRUP 150 MG/10 ML UDC PO SCH ×2 (08:29→21:42)
[2017-03-14] MEDS ORDERED: INFLUENZA QUADRIVALENT PF VACCINE 0.5ML SYRINGE (90686) IM ONE (09:00)
--- NOTE | 2017-03-14 11:07 | MHIPNPDOC ---
[facility] Progress Note Progress Note DATE OF SERVICE: 03/14/17 HISTORY: "I had suicidal thoughts" History of Present Illness HISTORY OF THE PRESENT ILLNESS: As per Ed note: "pt states, "I've been suicidal since Monday." Pt reports suffering from suicidal thoughts with plan to cut both wrists. She resides at [facility], planned to wait until she was able to shower "then I was going to take the razor blade apart and kill myself." Suicidal triggers include missing her 4 year old son and the rest of her family. Pt moved into [facility] residence 02/10/17 and notes she's been struggling. States she is unable to sleep, appetite has increased, along with suicidal thoughts. She reports attempting suicide by OD on medication(Tramadol, 500 mg and Hydroxizine , 10-15 tabs 25mg ) Nov 2016. She denies HI." VITAL SIGNS: See below. NEW TEST RESULTS: 24[facility] Labs Laboratory Tests 2 03/13/17 16:05: Bedside Glucose (Misc Panel) 89 03/14/17 07:00: Bedside Glucose (Misc Panel) 97 CURRENT MEDICATIONS: See below. MENTAL STATUS EXAMINATION: Patient is a 21-year old female, who is cooperative, sleepy, dressed in hospital clothes, fair eye contact, disheveled Speech: Is normal in rate, tone and volume. Language skills are normal. Thought processes including: Intact. Thought content: Anxious thoughts about her future. Abstract reasoning, and computation: Not assessed at this time Description of associations: good Description of abnormal or psychotic thoughts: Denies SI/HI, denies a/v hallucinations, admits to feel paranoid sometimes but not here and not at this time. Judgment: Limited. Insight: Limited. Orientation: oriented x 3. Recent and remote memory: Limited. Attention span and concentration: Fair Language: Normal. Fund of knowledge: Average. Mood: " I feel tired". Affect: Constricted DIAGNOSES: 1. Borderline Personality Disorder 2. Unspecified Depressive Disorder ASSESSMENT: Patient couldn't sleep well last night because she kept her nicotine patch on. She had weird dreams. She has to remember to take it off tonight. Denies medication side effects. She thinks she is getting better. MANAGEMENT PLAN: Patient will continue on the same treatment plan. she's improving, could be discharged by the end of the week. TIME SPENT: 20 minutes. Vital Signs Vital Signs Date Time Temp Pulse Resp B/P (MAP) Pulse Ox O2 Delivery O2 Flow Rate FiO2 03/14/17 09:53 Room Air 03/14/17 07:00 98.6 66 12 112/58 (76) 03/13/17 00:05 98 Laboratory Data 24H Labs Laboratory Tests 2 03/13/17 16:05: Bedside Glucose (Misc Panel) 89 03/14/17 07:00: Bedside Glucose (Misc Panel) 97 Current Medications Current Medications Acetaminophen (Tylenol Tab) 1,000 mg QHS PO Last administered on 03/13/17 21: 22; Start 03/13/17 at 21:00; Stop 04/12/17 at 20:59 Al Hydrox/Mg Hydrox/Simethicone (Mylanta) 30 ml Q4HP PRN PO HEARTBURN/ INDIGESTION; Start 03/13/17 at 01:00; Stop 04/12/17 at 00:59 Atorvastatin Calcium (Lipitor) 20 mg QHS PO Last administered on 03/13/17 21: 22; Start 03/13/17 at 21:00; Stop 04/12/17 at 20:59 Citalopram Hydrobromide (CeleXA) 40 mg QHS PO Last administered on 03/13/17 21 :22; Start 03/13/17 at 21:00; Stop 04/12/17 at 20:59 Home Med (Med Rec Complete!) ASDIRECTED XX ; Start 03/12/17 at 21:30; Stop 03/12/17 at 21:30; Status DC Magnesium Hydroxide (Milk Of Magnesia) 30 ml DAILYPRN PRN PO CONSTIPATION; Start 03/13/17 at 01:00; Stop 04/12/17 at 00:59 Metformin HCl (Glucophage) 1,000 mg BID@ PO Last administered on 08:26; Start 03/13/17 at 08:00; Stop 04/12/17 at 07:59 Nicotine (Nicoderm Cq 14mg) 1 patch DAILY TD Last administered on 03/14/17 08: 26; Start 03/13/17 at 09:00; Stop 04/12/17 at 08:59 Ranitidine HCl (Zantac) 150 mg BID PO Last administered on 03/13/17 21:22; Start 03/13/17 at 09:00; Stop 04/12/17 at 08:59 Trazodone HCl (Desyrel) 50 mg QHSP PRN PO INSOMNIA Last administered on 22:52; Start 03/13/17 at 01:00; Stop 04/12/17 at 00:59 Allergies Coded Allergies: No Known Drug Allergy (Verified Allergy, Unknown, 11/27/16) TRACI VANEGAS MD Mar 14, 2017 11:07
[2017-03-14 11:17] VITALS: BP 120/85
[2017-03-14 18:00] VITALS: BP 122/79
[2017-03-14] MEDS: CitaloPRAM (CeleXA) 20 MG TAB PO SCH (21:41)
[2017-03-14] MEDS: ATORVASTATIN 20 MG TAB PO SCH (21:41)
[2017-03-14] MEDS: ACETAMINOPHEN 500 MG TAB PO SCH (21:42)
[2017-03-14 21:44] VITALS: BP 131/89
[2017-03-14] MEDS: traZODone 50 MG TAB PO PRN (22:39)
[2017-03-15 06:43] VITALS: BP 117/63
[2017-03-15] MEDS: metFORMIN (GLUCOPHAGE) 1000 MG TABLET PO SCH ×2 (08:00→17:19)
[2017-03-15] MEDS: NICOTINE 14 MG/24 HR TRANSDERMAL TD SCH ×2 (09:00→10:39)
[2017-03-15] MEDS: raNITIdine SYRUP 150 MG/10 ML UDC PO SCH ×2 (09:00→21:17)
[2017-03-15] MEDS ORDERED: LORazepam 0.5 MG TAB PO STA (11:59)
--- NOTE | 2017-03-15 12:05 | MHIPNPDOC ---
[facility] Progress Note Progress Note DATE OF SERVICE: 03/15/17 HISTORY: "I had suicidal thoughts" History of Present Illness HISTORY OF THE PRESENT ILLNESS: As per Ed note: "pt states, "I've been suicidal since Monday." Pt reports suffering from suicidal thoughts with plan to cut both wrists. She resides at [facility], planned to wait until she was able to shower "then I was going to take the razor blade apart and kill myself." Suicidal triggers include missing her 4 year old son and the rest of her family. Pt moved into [facility] residence 02/10/17 and notes she's been struggling. States she is unable to sleep, appetite has increased, along with suicidal thoughts. She reports attempting suicide by OD on medication(Tramadol, 500 mg and Hydroxizine , 10-15 tabs 25mg ) Nov 2016. She denies HI." VITAL SIGNS: See below. NEW TEST RESULTS: 24[facility] Labs Laboratory Tests 2 03/14/17 17:03: Bedside Glucose (Misc Panel) 141H 03/15/17 06:15: Bedside Glucose (Misc Panel) 94 CURRENT MEDICATIONS: See below. MENTAL STATUS EXAMINATION: Patient is a 21-year old female, who is cooperative, dressed in personal clothes , pleasant, cooperative, with good eye contact Speech: Is normal in rate, tone and volume. Language skills are Good Thought processes including: Linear, rational Thought content: Anxious thoughts about her future. Abstract reasoning, and computation: Good Description of associations: good Description of abnormal or psychotic thoughts: Denies SI/HI, denies A/V hallucinations, admits to feel paranoid sometimes but not here and not at this time. Judgment: Limited. Insight: Limited. Orientation: oriented x 3. Recent and remote memory: Fair Attention span and concentration: Fair Language: Normal. Fund of knowledge: Average. Mood: " I still feel anxious. I think I'm having an anxiety attack". Affect: Constricted DIAGNOSES: 1. Borderline Personality Disorder 2. Unspecified Depressive Disorder ASSESSMENT: Patient started feeling anxious around 40 minutes before meeting with this literary writer. she says she ignores the why, it just started. I indicated a stat dose of Ativan 1 mgs. and Atarax 50 mgs PO QHS PRN for anxiety. MANAGEMENT PLAN: Need to address anxiety problem. She will be taking Atarax, she will take Ativan 1 mg. now. she will probably be discharged on Monday TIME SPENT: 20 minutes. Vital Signs Vital Signs Date Time Temp Pulse Resp B/P (MAP) Pulse Ox O2 Delivery O2 Flow Rate FiO2 03/15/17 06:43 97.8 73 16 117/63 (81) 03/14/17 21:44 96 Room Air Laboratory Data 24H Labs Laboratory Tests 2 03/14/17 17:03: Bedside Glucose (Misc Panel) 141H 03/15/17 06:15: Bedside Glucose (Misc Panel) 94 Current Medications Current Medications Acetaminophen (Tylenol Tab) 1,000 mg QHS PO Last administered on 03/14/17 21: 42; Start 03/13/17 at 21:00; Stop 04/12/17 at 20:59 Al Hydrox/Mg Hydrox/Simethicone (Mylanta) 30 ml Q4HP PRN PO HEARTBURN/ INDIGESTION; Start 03/13/17 at 01:00; Stop 04/12/17 at 00:59 Atorvastatin Calcium (Lipitor) 20 mg QHS PO Last administered on 03/14/17 21: 41; Start 03/13/17 at 21:00; Stop 04/12/17 at 20:59 Citalopram Hydrobromide (CeleXA) 40 mg QHS PO Last administered on 03/14/17 21 :41; Start 03/13/17 at 21:00; Stop 04/12/17 at 20:59 Home Med (Med Rec Complete!) ASDIRECTED XX ; Start 03/12/17 at 21:30; Stop 03/12/17 at 21:30; Status DC Magnesium Hydroxide (Milk Of Magnesia) 30 ml DAILYPRN PRN PO CONSTIPATION; Start 03/13/17 at 01:00; Stop 04/12/17 at 00:59 Metformin HCl (Glucophage) 1,000 mg BID@ PO Last administered on 17:03; Start 03/13/17 at 08:00; Stop 04/12/17 at 07:59 Nicotine (Nicoderm Cq 14mg) 1 patch DAILY TD Last administered on 03/15/17 10: 39; Start 03/13/17 at 09:00; Stop 04/12/17 at 08:59 Ranitidine HCl (Zantac) 150 mg BID PO Last administered on 03/14/17 21:42; Start 03/13/17 at 09:00; Stop 04/12/17 at 08:59 Trazodone HCl (Desyrel) 50 mg QHSP PRN PO INSOMNIA Last administered on 22:39; Start 03/13/17 at 01:00; Stop 04/12/17 at 00:59 Allergies Coded Allergies: No Known Drug Allergy (Verified Allergy, Unknown, 11/27/16) TRACI VANEGAS MD Mar 15, 2017 12:05
[2017-03-15] MEDS ORDERED: hydrOXYzine 50 MG TAB PO PRN (12:15)
[2017-03-15 18:00] VITALS: BP 117/63
[2017-03-15] MEDS: CitaloPRAM (CeleXA) 20 MG TAB PO SCH (21:17)
[2017-03-15] MEDS: ATORVASTATIN 20 MG TAB PO SCH (21:17)
[2017-03-15] MEDS: ACETAMINOPHEN 500 MG TAB PO SCH (21:17)
[2017-03-15] MEDS: traZODone 50 MG TAB PO PRN (22:33)
[2017-03-16 06:35] VITALS: BP 112/64
[2017-03-16] MEDS: raNITIdine SYRUP 150 MG/10 ML UDC PO SCH ×2 (09:00→21:22)
[2017-03-16] MEDS: metFORMIN (GLUCOPHAGE) 1000 MG TABLET PO SCH ×2 (09:16→18:05)
[2017-03-16] MEDS: NICOTINE 14 MG/24 HR TRANSDERMAL TD SCH (09:16)
--- NOTE | 2017-03-16 17:51 | MHIPNPDOC ---
[facility] Progress Note Progress Note DATE OF SERVICE: 03/16/17 HISTORY: "I had suicidal thoughts" History of Present Illness HISTORY OF THE PRESENT ILLNESS: As per Ed note: "pt states, "I've been suicidal since Monday." Pt reports suffering from suicidal thoughts with plan to cut both wrists. She resides at [facility], planned to wait until she was able to shower "then I was going to take the razor blade apart and kill myself." Suicidal triggers include missing her 4 year old son and the rest of her family. Pt moved into [facility] residence 02/10/17 and notes she's been struggling. States she is unable to sleep, appetite has increased, along with suicidal thoughts. She reports attempting suicide by OD on medication(Tramadol, 500 mg and Hydroxizine , 10-15 tabs 25mg ) Nov 2016. She denies HI." VITAL SIGNS: See below. NEW TEST RESULTS: N/A CURRENT MEDICATIONS: See below. MENTAL STATUS EXAMINATION: Patient is a 21-year old female, who is cooperative, dressed in personal clothes , pleasant, cooperative, with good eye contact Speech: Spontaneous and fluent Language skills are Intact Thought processes including: Coherent Thought content: Anxious thoughts about her future. Abstract reasoning, and computation: Good Description of associations: good Description of abnormal or psychotic thoughts: Denies SI/HI, denies A/V hallucinations, denies thought delusions Judgment: Improved Insight: Improved Orientation: oriented x 3. Recent and remote memory: Intact Attention span and concentration: Intact Language: Normal. Fund of knowledge: Average. Mood: " I still feel anxious.". Affect: Anxious DIAGNOSES: 1. Borderline Personality Disorder 2. Unspecified Depressive Disorder ASSESSMENT: Patient says she she is feeling anxious about going back to [facility] and she said she was starting feeling depressed again but the staff told her it was because she was anxious. MANAGEMENT PLAN: Will continue on the same treatment plan. TIME SPENT: 20 minutes. Vital Signs Vital Signs Date Time Temp Pulse Resp B/P (MAP) Pulse Ox O2 Delivery O2 Flow Rate FiO2 03/16/17 06:35 98.3 58 16 112/64 (80) Room Air 03/14/17 21:44 96 Current Medications Current Medications Acetaminophen (Tylenol Tab) 1,000 mg QHS PO Last administered on 03/15/17t 21: 17; Start 03/13/17 at 21:00; Stop 1/3/18 at 20:59 Al Hydrox/Mg Hydrox/Simethicone (Mylanta) 30 ml Q4HP PRN PO HEARTBURN/ INDIGESTION; Start 03/13/17 at 01:00; Stop 04/12/17 at 00:59 Atorvastatin Calcium (Lipitor) 20 mg QHS PO Last administered on 03/15/17 21: 17; Start 03/13/17 at 21:00; Stop 04/12/17 at 20:59 Citalopram Hydrobromide (CeleXA) 40 mg QHS PO Last administered on 03/15/17 21 :17; Start 03/13/17 at 21:00; Stop 04/12/17 at 20:59 Home Med (Med Rec Complete!) ASDIRECTED XX ; Start 03/12/17 at 21:30; Stop 03/12/17 at 21:30; Status DC Hydroxyzine HCl (Atarax) 50 mg Q6HP PRN PO ANXIETY Last administered on 23:21; Start 03/15/17 at 12:15; Stop 04/14/17 at 12:14 Lorazepam (Ativan) 1 mg STAT STAT PO Last administered on 03/15/17 12:03; Start 03/15/17 at 11:59; Stop 03/15/17 at 12:00; Status DC Magnesium Hydroxide (Milk Of Magnesia) 30 ml DAILYPRN PRN PO CONSTIPATION; Start 03/13/17 at 01:00; Stop 04/12/17 at 00:59 Metformin HCl (Glucophage) 1,000 mg BID@ PO Last administered on 09:16; Start 03/13/17 at 08:00; Stop 04/12/17 at 07:59 Nicotine (Nicoderm Cq 14mg) 1 patch DAILY TD Last administered on 03/16/17 09: 16; Start 03/13/17 at 09:00; Stop 04/12/17 at 08:59 Ranitidine HCl (Zantac) 150 mg BID PO Last administered on 03/15/17 21:17; Start 03/13/17 at 09:00; Stop 04/12/17 at 08:59 Trazodone HCl (Desyrel) 50 mg QHSP PRN PO INSOMNIA Last administered on t 22:33; Start 03/13/17 at 01:00; Stop 04/12/17 at 00:59 Allergies Coded Allergies: No Known Drug Allergy (Verified Allergy, Unknown, 11/27/16) TRACI VANEGAS MD Mar 16, 2017 17:51
[2017-03-16] MEDS ORDERED: NICO14PA TD (17:54)
[2017-03-16] MEDS ORDERED: TRAZO50TA PO (17:54)
[2017-03-16] MEDS ORDERED: HYDRO50TAB PO (17:54)
[2017-03-16 18:00] VITALS: BP 138/86
[2017-03-16] MEDS: CitaloPRAM (CeleXA) 20 MG TAB PO SCH (21:21)
[2017-03-16] MEDS: ATORVASTATIN 20 MG TAB PO SCH (21:21)
[2017-03-16] MEDS: ACETAMINOPHEN 500 MG TAB PO SCH (21:22)
[2017-03-16] MEDS: traZODone 50 MG TAB PO PRN (22:18)
[2017-03-17 06:40] VITALS: BP 122/66
[2017-03-17] MEDS: metFORMIN (GLUCOPHAGE) 1000 MG TABLET PO SCH (08:38)
[2017-03-17] MEDS: NICOTINE 14 MG/24 HR TRANSDERMAL TD SCH (09:00)
[2017-03-17] MEDS: raNITIdine SYRUP 150 MG/10 ML UDC PO SCH (09:00)
--- NOTE | 2017-03-20 15:30 | MHDSPDOC ---
[facility] Discharge Summary Discharge Summary DATE OF ADMISSION: Mar 12, 2017 at 23:06 DATE OF DISCHARGE: Mar 17, 2017 at 09:05 DISCHARGE DIAGNOSES: 1. Major Depressive Disorder, recurrent, moderate-severe 2. Generalized anxiety disorder 3. Borderline Personality Disorder REASON FOR ADMISSION: HISTORY: "I had suicidal thoughts" History of Present Illness HISTORY OF THE PRESENT ILLNESS: As per Ed note: "pt states, "I've been suicidal since Monday." Pt reports suffering from suicidal thoughts with plan to cut both wrists. She resides at [facility], planned to wait until she was able to shower "then I was going to take the razor blade apart and kill myself." Suicidal triggers include missing her 4 year old son and the rest of her family. Pt moved into [facility] residence 02/10/17 and notes she's been struggling. States she is unable to sleep, appetite has increased, along with suicidal thoughts. She reports attempting suicide by OD on medication(Tramadol, 500 mg and Hydroxizine , 10-15 tabs 25mg ) Nov 2016. She denies HI." CONSULTANTS INVOLVED: None TREATMENT AND PROGRESS ON THE UNIT : Patient had a good response to treatment, she attended groups and interacted with other patients. She was motivated for treatment and never had a behavioral problem while she was on the unit. since she was admitted she denied having suicidal ideation and she said she [place] a [place] prior to admission when her mood was perfectly normal, she was not depressed. The [facility] worker said the patient was still adapting to [facility] and it was a major change from living with her parents. Reportedly, when she attended groups, she engaged and participated, she was insightful about her problems. HOSPITAL COURSE: As above DISCHARGE ASSESSMENT: Patient was alert and oriented x 3, she was not in danger to self or others, she was not suicidal, not homicidal and not psychotic. MENTAL STATUS EXAMINATION ON DISCHARGE: Patient is a 21-year old female, who is alert, cooperative, dressed in hospital clothes, with good eye contact, fairly groomed, with good hygiene, pleasant Speech is Normal in rate, tone and volume. Language skills are Good. Thought processes including: Intact. Thought content: Focused on her discharge. Abstract reasoning, and computation: Limited. Description of associations: Good. Description of abnormal or psychotic thoughts: Denies SI/HI, A/V hallucinations , denies thought delusions. Judgment: Improved. Insight: Improved. Orientation to Oriented x 3. Recent and remote memory: Intact. Attention span and concentration: Good. Language: Fair. Fund of knowledge: Limited. Mood: Euthymic. Affect: Euthymic. MEDICATIONS ON DISCHARGE: Scheduled Acetaminophen (Tylenol Extra Strength) 500 Mg Tab, 1,000 MG PO QHS, (Reported) Atorvastatin Calcium (Atorvastatin Calcium) 20 Mg Tab, 20 MG PO QHS, (Reported) Citalopram Hydrobromide (Citalopram Hydrobromide) 40 Mg Tab, 40 MG PO QHS, ( Reported) Metformin Hydrochloride (Metformin HCl) 1,000 Mg Tab, 1,000 MG PO BID, (Reported ) Nicotine (Nicotine Transdermal Syst) 14 Mg/24 Hr Dis, 1 PATCH TD DAILY for SMOKING CESSATION, #10 Ranitidine HCl (Ranitidine HCl) 150 Mg Tab, 1 TAB PO QHS, (Reported) Scheduled PRN Hydroxyzine HCl (Hydroxyzine HCl) 50 Mg Tab, 50 MG PO Q6HP PRN for ANXIETY, #28 Trazodone HCl (Trazodone HCl) 50 Mg Tab, 50 MG PO QHSP PRN for INSOMNIA, #7 PLAN/FOLLOWUP ARRANGEMENTS: Patient will f/u at [facility] The amount of time spent in the coordination of care for this patient was approximately 30 minutes. Vital Signs/I&Os Vital Signs Date Time Temp Pulse Resp B/P (MAP) Pulse Ox O2 Delivery O2 Flow Rate FiO2 03/17/17 06:40 98.1 69 14 122/66 (84) Room Air 03/14/17 21:44 96 Medications Scheduled Acetaminophen (Tylenol Extra Strength) 500 Mg Tab, 1,000 MG PO QHS, (Reported) Atorvastatin Calcium (Atorvastatin Calcium) 20 Mg Tab, 20 MG PO QHS, (Reported) Citalopram Hydrobromide (Citalopram Hydrobromide) 40 Mg Tab, 40 MG PO QHS, ( Reported) Metformin Hydrochloride (Metformin HCl) 1,000 Mg Tab, 1,000 MG PO BID, (Reported ) Nicotine (Nicotine Transdermal Syst) 14 Mg/24 Hr Dis, 1 PATCH TD DAILY for SMOKING CESSATION, #10 Ranitidine HCl (Ranitidine HCl) 150 Mg Tab, 1 TAB PO QHS, (Reported) Scheduled PRN Hydroxyzine HCl (Hydroxyzine HCl) 50 Mg Tab, 50 MG PO Q6HP PRN for ANXIETY, #28 Trazodone HCl (Trazodone HCl) 50 Mg Tab, 50 MG PO QHSP PRN for INSOMNIA, #7 Allergies Coded Allergies: No Known Drug Allergy (Verified Allergy, Unknown, 11/27/16) TRACI VANEGAS MD Mar 20, 2017 15:30
== END 2017-03-17 09:05 | disposition home or self-care (01) | DRG 751 ==
LOC: M ED 20:27 → M ED INP 23:06 → M PSY 03-13 00:02
PROVIDERS: ADMIT Psychiatry & Neurology Psychiatry; ATTEND Psychiatry & Neurology Psychiatry
DX: F32.2 Major depressive disorder, single episode, severe without psychotic features (principal); F60.3 Borderline personality disorder; E11.9 Type 2 diabetes mellitus without complications; E28.2 Polycystic ovarian syndrome; F41.1 Generalized anxiety disorder; K21.9 Gastro-esophageal reflux disease without esophagitis; F17.210 Nicotine dependence, cigarettes, uncomplicated; E66.9 Obesity, unspecified; Z68.38 Body mass index [BMI] 38.0-38.9, adult; Z62.810 Personal history of physical and sexual abuse in childhood; Z79.84 Long term (current) use of oral hypoglycemic drugs

== ENCOUNTER → 2017-03-23 | Outpatient (CLI) | payer OTHER ==
[~2017-03-23] MED LIST changes: +GASTROGRAFIN SOLUTION 30ML (Q9963) As Ordered ONE; +HYDRO50TAB PO; +ISOVUE-370 76% 100ML VIAL (Q9967) As Ordered ONE; +METF10004 PO; +TYLE500T78 PO
--- NOTE | 2017-03-23 16:57 | REP ---
CT of the abdomen and pelvis with IV and oral contrast: There are no comparisons. The visualized lung [place] are unremarkable. The hepatic parenchyma is unremarkable. There are surgical clips in the gallbladder fossa. The pancreas and spleen are normal size and unremarkable. The adrenals, kidneys and abdominal aorta are unremarkable. There is no retroperitoneal or mesenteric adenopathy. There is no bowel distension or obstruction. There is no ascites. Pelvis: The uterus and adnexa are unremarkable , and small ovarian follicles are incidentally identified. The bladder is unremarkable. There is no ascites or adenopathy. The pelvic bowel loops are unremarkable. The appendix is not identified, however, there is no pericecal phlegmon or abscess. Impression: Cholecystectomy. Otherwise, essentially negative CT of the abdomen and pelvis. Signed by Morgan Lindquist MD 03/23/2017 04:48 P
== END ==
LOC: M RAD 14:36
PROVIDERS: ATTEND Physician Assistant Medical
DX: R10.9 Unspecified abdominal pain (principal)
CPT/HCPCS: 74177; Q9963; Q9967

== ENCOUNTER 2017-04-03 21:38 | Emergency (ER) | payer OTHER, MEDICAID ==
[~2017-04-03] VITALS: Ht 154.9 cm; Wt 90.9 kg
[~2017-04-03 21:38] MED LIST changes: -GASTROGRAFIN SOLUTION 30ML (Q9963) As Ordered ONE; -ISOVUE-370 76% 100ML VIAL (Q9967) As Ordered ONE
[2017-04-03] MEDS ORDERED: ONDANSETRON 4 MG ORAL DISINTEGRATING TAB (S0181) PO ONE (22:30)
[2017-04-03] MEDS ORDERED: ZOFR4TAB3 PO (22:43)
[2017-04-03 22:47] VITALS: BP 128/82
== END 2017-04-03 22:50 | disposition home or self-care (01) ==
LOC: M ED 21:38
DX: B34.9 Viral infection, unspecified (principal); F33.9 Major depressive disorder, recurrent, unspecified; F17.210 Nicotine dependence, cigarettes, uncomplicated; R73.09 Other abnormal glucose; Z79.899 Other long term (current) drug therapy; Z79.84 Long term (current) use of oral hypoglycemic drugs

== ENCOUNTER 2017-04-13 22:36 | Emergency (ER) | payer OTHER, MEDICAID | END 2017-04-13 23:19 | disposition home or self-care (01) | LOC: M ED 22:36 | DX: Z60.9 Problem related to social environment, unspecified (principal); F60.3 Borderline personality disorder; F17.210 Nicotine dependence, cigarettes, uncomplicated; Z79.84 Long term (current) use of oral hypoglycemic drugs; Z79.899 Other long term (current) drug therapy | CPT/HCPCS: 99284 ==

== ENCOUNTER → 2017-05-02 | Outpatient (REF) | payer OTHER, MEDICAID | LOC: M LAB REF 17:15 | DX: J02.9 Acute pharyngitis, unspecified (principal) ==

== ENCOUNTER 2017-05-07 20:07 | Emergency (ER) | payer OTHER, MEDICAID ==
[2017-05-07] MEDS: NS 1,000 ML IV (21:00)
[2017-05-07 21:24] LABS: BASO % 0.3 % (0.0-1.0); EOS # 0.2 10^3/uL (0.0-0.50); EOS % 1.6 % (0.0-3.0); HEMATOCRIT 44.4 % (36.0-47.0); HEMOGLOBIN 14.9 g/dl (12.0-16.0); IMMATURE GRANULOCYTE % 0.4 % (0-0); LYMPH # 3.1 10^3/uL (1.5-6.5); LYMPH % 32.8 % (24.0-44.0); MEAN CORPUSCULAR HEMOGLOBIN 29.2 pg (27.0-33.0); MEAN CORPUSCULAR HGB CONC 33.6 g/dl (32.0-36.5); MEAN CORPUSCULAR VOLUME 87.1 fl (80.0-96.0); MONO # 0.6 10^3/uL (0.0-0.8); MONO % 6.8 % (0.0-5.0); NEUTROPHILS # 5.4 10^3/uL (1.8-7.7); NEUTROPHILS % 58.1 % (36.0-66.0); PLATELET COUNT, AUTOMATED 222 10^3/uL (150-450); RED CELL DISTRIBUTION WIDTH 14.3 % (11.5-14.5); WHITE BLOOD COUNT 9.4 10^3/uL (4.0-10.0)
[2017-05-07 21:39] LABS: APPEARANCE, URINE HAZY (CLEAR); BACTERIA, URINE AUTO NEGATIVE (NEGATIVE); BILIRUBIN, URINE AUTO NEGATIVE (NEGATIVE); BLOOD, URINE BLOOD NEGATIVE (NEGATIVE); COLOR, URINE YELLOW (YELLOW); GLUCOSE, URINE (UA) AUTO NEGATIVE (NEGATIVE); KETONE, URINE AUTO NEGATIVE (NEGATIVE); LEUKOCYTE ESTERASE, URINE AUTO 1+ (NEGATIVE); MUCUS, URINE SMALL (NEGATIVE); NITRITE, URINE AUTO NEGATIVE (NEGATIVE); PROTEIN, URINE AUTO NEGATIVE (NEGATIVE); RBC, URINE AUTO 1 /HPF (0-3); SPECIFIC GRAVITY URINE AUTO 1.023 (1.002-1.035); SQUAMOUS EPITHELIAL CELL UR AU 4 /HPF (0-6); UROBILINOGEN, URINE AUTO 0.2 mg/dL (0.0-2.0); WBC, URINE AUTO 2 /HPF (0-3)
[2017-05-07 21:49] LABS: CONTROL LINE HCG INT CTR LINE PRESENT; HCG, SERUM QUALITATIVE NEGATIVE (NEGATIVE)
[2017-05-07 21:55] LABS: AMYLASE 44 U/L (25-115); ANION GAP 10 MEQ/L (8-16); BLOOD UREA NITROGEN 11 MG/DL (7-18); CARBON DIOXIDE LEVEL 27 MEQ/L (21-32); CHLORIDE LEVEL 106 MEQ/L (98-107); CREATININE FOR GFR 0.68 MG/DL (0.55-1.02); GLOMERULAR FILTRATION RATE > 60.0 (>60); GLUCOSE, FASTING 99 MG/DL (70-100); LIPASE 147 U/L (73-393); POTASSIUM SERUM 4.1 MEQ/L (3.5-5.1); SODIUM LEVEL 143 MEQ/L (136-145)
== END 2017-05-07 23:22 | disposition home or self-care (01) ==
LOC: M ED 20:07
DX: K52.9 Noninfective gastroenteritis and colitis, unspecified (principal); F33.9 Major depressive disorder, recurrent, unspecified; F17.210 Nicotine dependence, cigarettes, uncomplicated; Z79.3 Long term (current) use of hormonal contraceptives; Z79.52 Long term (current) use of systemic steroids; Z79.899 Other long term (current) drug therapy; Z87.440 Personal history of urinary (tract) infections; Z98.890 Other specified postprocedural states
CPT/HCPCS: 74176

== ENCOUNTER → 2017-05-16 | Outpatient (REF) | payer MEDICARE ==
[2017-05-16 15:24] LABS: CHLAMYDIA DNA AMPLIFICATION NEGATIVE (NEGATIVE); GC DNA AMPLIFICATION NEGATIVE (NEGATIVE)
[2017-05-16 17:41] LABS: CHLAMYDIA DNA AMPLIFICATION NEGATIVE (NEGATIVE); GC DNA AMPLIFICATION NEGATIVE (NEGATIVE)
[2017-05-17 11:27] LABS: HEPATITIS B SURFACE ANTIGEN NEGATIVE (NEGATIVE)
[2017-05-17 11:55] LABS: HIV 1&2 SCREEN CENTAUR NEGATIVE (NEGATIVE)
[2017-05-17 11:55] LABS: HEPATITIS C VIRUS ABY INDEX < 0.0 INDEX (<0.8)
== END ==
LOC: M SFHCWAGY 11:47
DX: Z12.4 Encounter for screening for malignant neoplasm of cervix (principal); Z11.3 Encounter for screening for infections with a predominantly sexual mode of transmission; R87.5 Abnormal microbiological findings in specimens from female genital organs
CPT/HCPCS: 87340

== ENCOUNTER 2017-05-24 21:56 | Emergency (ER) | payer MEDICARE, OTHER, MEDICAID ==
[2017-05-25] MEDS: METOCLOPRAMIDE 10 MG TAB PO ×2 (00:45)
[2017-05-25] MEDS: ACETAMINOPHEN 325 MG TAB PO ×2 (00:45)
== END 2017-05-25 02:11 | disposition home or self-care (01) ==
LOC: M ED 21:56
DX: S09.90XA Unspecified injury of head, initial encounter (principal); S03.40XA Sprain of jaw, unspecified side, initial encounter; W00.9XXA Unspecified fall due to ice and snow, initial encounter; Y92.410 Unspecified street and highway as the place of occurrence of the external cause; E78.00 Pure hypercholesterolemia, unspecified; K21.9 Gastro-esophageal reflux disease without esophagitis; F17.210 Nicotine dependence, cigarettes, uncomplicated; F33.9 Major depressive disorder, recurrent, unspecified; F41.9 Anxiety disorder, unspecified; Z79.84 Long term (current) use of oral hypoglycemic drugs; Z86.69 Personal history of other diseases of the nervous system and sense organs; Z98.890 Other specified postprocedural states
CPT/HCPCS: 70110

== ENCOUNTER 2017-05-30 16:29 | Inpatient (IN) | payer MEDICAID, OTHER, MEDICARE ==
[2017-05-30 17:37] LABS: HEMATOCRIT 43.4 % (36.0-47.0); HEMOGLOBIN 14.3 g/dl (12.0-16.0); MEAN CORPUSCULAR HEMOGLOBIN 29.1 pg (27.0-33.0); MEAN CORPUSCULAR HGB CONC 32.9 g/dl (32.0-36.5); MEAN CORPUSCULAR VOLUME 88.2 fl (80.0-96.0); PLATELET COUNT, AUTOMATED 235 10^3/uL (150-450); RED BLOOD COUNT 4.92 10^6/uL (4.00-5.40); RED CELL DISTRIBUTION WIDTH 14.3 % (11.5-14.5)
[2017-05-30 17:40] LABS: CONTROL LINE HCG INT CTR LINE PRESENT; HCG, SERUM QUALITATIVE NEGATIVE (NEGATIVE)
[2017-05-30 17:57] LABS: ALBUMIN 3.9 GM/DL (3.2-5.2); ALKALINE PHOSPHATASE 108 U/L (45-117); ALT/SGPT 19 U/L (12-78); ANION GAP 9 MEQ/L (8-16); AST/SGOT 10 U/L (7-37); BILIRUBIN,DIRECT 0.1 MG/DL (0.0-0.2); BILIRUBIN,TOTAL 0.4 MG/DL (0.2-1.0); BLOOD UREA NITROGEN 14 MG/DL (7-18); CALCIUM LEVEL 9.2 MG/DL (8.5-10.1); CARBON DIOXIDE LEVEL 26 MEQ/L (21-32); CHLORIDE LEVEL 105 MEQ/L (98-107); CREATININE FOR GFR 0.71 MG/DL (0.55-1.30); ETHYL ALCOHOL (ETHANOL) 0.004 % (0.000-0.010); GLOMERULAR FILTRATION RATE > 60.0 (>60); GLUCOSE, FASTING 74 MG/DL (70-100); POTASSIUM SERUM 4.2 MEQ/L (3.5-5.1); SALICYLATE LEVEL 2.6 MG/DL (5.0-30.0); SODIUM LEVEL 140 MEQ/L (136-145); TOTAL PROTEIN 6.9 GM/DL (6.4-8.2)
[2017-05-30 17:58] LABS: ACETAMINOPHEN LEVEL < 2.0 UG/ML (10.0-30.0)
[2017-05-30 18:07] LABS: AMPHETAMINES LEVEL URINE NEGATIVE (NEGATIVE); BARBITURATES URINE NEGATIVE (NEGATIVE); BENZODIAZEPINES URINE NEGATIVE (NEGATIVE); CANNABINOIDS URINE NEGATIVE (NEGATIVE); COCAINE METABOLITE URINE NEGATIVE (NEGATIVE); METHADONE URINE NEGATIVE (NEGATIVE); OPIATES URINE NEGATIVE (NEGATIVE); PHENCYCLIDINE URINE NEGATIVE (NEGATIVE)
[2017-05-30] MEDS ORDERED: MAALOX 30 ML SUSP *UDC PO (19:00)
[2017-05-30] MEDS ORDERED: MOM 30ML SUSPENSION UDC PO (19:00)
[2017-05-30] MEDS ORDERED: ACETAMINOPHEN TAB 650MG DOSE (2X325MG) PO (19:00)
[2017-05-30] MEDS: CitaloPRAM (CeleXA) 20 MG TAB PO (23:02)
[2017-05-30] MEDS: FAMOTIDINE 20 MG TAB PO (23:02)
[2017-05-30] MEDS: traZODone 50 MG TAB PO (23:02)
[2017-05-30] MEDS: metFORMIN (GLUCOPHAGE) 1000 MG TABLET PO (23:02)
[2017-05-30] MEDS: PALIPERIDONE 6 MG ER TAB (INVEGA) PO (23:02)
[2017-05-31] MEDS: metFORMIN (GLUCOPHAGE) 1000 MG TABLET PO ×2 (07:50→17:17)
[2017-05-31] MEDS: NICOTINE 14 MG/24 HR TRANSDERMAL TD (10:31)
[2017-05-31 17:29] LABS: BEDSIDE GLUCOSE 96 MG/DL (70-105)
[2017-05-31] MEDS: FAMOTIDINE 20 MG TAB PO (20:33)
[2017-05-31] MEDS: CitaloPRAM (CeleXA) 20 MG TAB PO (20:33)
[2017-05-31] MEDS: risperiDONE 1 MG TAB PO (20:33)
[2017-05-31] MEDS: traZODone 50 MG TAB PO (20:34)
[2017-06-01 06:24] LABS: BEDSIDE GLUCOSE 90 MG/DL (70-105)
[2017-06-01] MEDS ORDERED: traZODone 25MG PER 1/2 TABLET PO (07:45)
[2017-06-01] MEDS: metFORMIN (GLUCOPHAGE) 1000 MG TABLET PO ×2 (08:50→17:06)
[2017-06-01] MEDS: NICOTINE 14 MG/24 HR TRANSDERMAL TD ×2 (08:51→12:04)
[2017-06-01 16:48] LABS: BEDSIDE GLUCOSE 114 MG/DL (70-105)
[2017-06-01] MEDS: risperiDONE 1 MG TAB PO (20:59)
[2017-06-01] MEDS: FAMOTIDINE 20 MG TAB PO (20:59)
[2017-06-01] MEDS: CitaloPRAM (CeleXA) 20 MG TAB PO (20:59)
[2017-06-01] MEDS: traZODone 25MG PER 1/2 TABLET PO (21:35)
[2017-06-02 06:28] LABS: BEDSIDE GLUCOSE 83 MG/DL (70-105)
[2017-06-02] MEDS: metFORMIN (GLUCOPHAGE) 1000 MG TABLET PO ×2 (08:52→17:01)
[2017-06-02] MEDS: NICOTINE 14 MG/24 HR TRANSDERMAL TD (08:54)
[2017-06-02] MEDS: hydrOXYzine 50 MG TAB PO (15:26)
[2017-06-02 18:12] LABS: BEDSIDE GLUCOSE 147 MG/DL (70-105)
[2017-06-02] MEDS: FAMOTIDINE 20 MG TAB PO (21:42)
[2017-06-02] MEDS: CitaloPRAM (CeleXA) 20 MG TAB PO (21:42)
[2017-06-02] MEDS: risperiDONE 1 MG TAB PO (21:42)
[2017-06-03] MEDS: NICOTINE 14 MG/24 HR TRANSDERMAL TD (08:02)
[2017-06-03] MEDS: metFORMIN (GLUCOPHAGE) 1000 MG TABLET PO ×2 (08:02→17:03)
[2017-06-03 16:23] LABS: BEDSIDE GLUCOSE 85 MG/DL (70-105)
[2017-06-03] MEDS: risperiDONE 1 MG TAB PO (21:19)
[2017-06-03] MEDS: FAMOTIDINE 20 MG TAB PO (21:19)
[2017-06-03] MEDS: CitaloPRAM (CeleXA) 20 MG TAB PO (21:19)
[2017-06-03] MEDS: hydrOXYzine 50 MG TAB PO (21:19)
[2017-06-03] MEDS: traZODone 25MG PER 1/2 TABLET PO (21:19)
[2017-06-04 06:59] LABS: BEDSIDE GLUCOSE 83 MG/DL (70-105)
[2017-06-04] MEDS: metFORMIN (GLUCOPHAGE) 1000 MG TABLET PO ×2 (08:24→17:26)
[2017-06-04] MEDS: NICOTINE 14 MG/24 HR TRANSDERMAL TD (08:25)
[2017-06-04 16:45] LABS: BEDSIDE GLUCOSE 105 MG/DL (70-105)
[2017-06-04] MEDS: risperiDONE 1 MG TAB PO (21:54)
[2017-06-04] MEDS: hydrOXYzine 50 MG TAB PO (21:54)
[2017-06-04] MEDS: traZODone 25MG PER 1/2 TABLET PO (21:54)
[2017-06-04] MEDS: CitaloPRAM (CeleXA) 20 MG TAB PO (21:54)
[2017-06-04] MEDS: FAMOTIDINE 20 MG TAB PO (21:55)
[2017-06-05 06:49] LABS: BEDSIDE GLUCOSE 92 MG/DL (70-105)
[2017-06-05] MEDS: NICOTINE 14 MG/24 HR TRANSDERMAL TD (08:45)
[2017-06-05] MEDS: metFORMIN (GLUCOPHAGE) 1000 MG TABLET PO (08:45)
== END 2017-06-05 11:25 | disposition home or self-care (01) | DRG 881 ==
LOC: M PSY 06-04 20:29 → M ED 16:29 → M ED INP 18:51 → M PSY 20:25
DX: F32.9 Major depressive disorder, single episode, unspecified (principal); R44.0 Auditory hallucinations; F41.1 Generalized anxiety disorder; F12.10 Cannabis abuse, uncomplicated; F60.9 Personality disorder, unspecified; F17.210 Nicotine dependence, cigarettes, uncomplicated; E11.9 Type 2 diabetes mellitus without complications; K21.9 Gastro-esophageal reflux disease without esophagitis; E66.9 Obesity, unspecified; E28.2 Polycystic ovarian syndrome; Z62.810 Personal history of physical and sexual abuse in childhood; Z62.811 Personal history of psychological abuse in childhood; Z68.35 Body mass index [BMI] 35.0-35.9, adult; Z79.84 Long term (current) use of oral hypoglycemic drugs; Z79.899 Other long term (current) drug therapy

== ENCOUNTER 2017-06-21 10:07 | Inpatient (IN) | payer MEDICAID, OTHER, MEDICARE ==
[2017-06-21] MEDS: NICOTINE 14 MG/24 HR TRANSDERMAL TD (09:00)
[2017-06-21 11:17] LABS: HEMATOCRIT 40.1 % (36.0-47.0); HEMOGLOBIN 13.4 g/dl (12.0-16.0); MEAN CORPUSCULAR HEMOGLOBIN 29.5 pg (27.0-33.0); MEAN CORPUSCULAR HGB CONC 33.4 g/dl (32.0-36.5); MEAN CORPUSCULAR VOLUME 88.1 fl (80.0-96.0); PLATELET COUNT, AUTOMATED 206 10^3/uL (150-450); RED BLOOD COUNT 4.55 10^6/uL (4.00-5.40); RED CELL DISTRIBUTION WIDTH 14.1 % (11.5-14.5); WHITE BLOOD COUNT 11.4 10^3/uL (4.0-10.0)
[2017-06-21 11:27] LABS: CONTROL LINE HCG INT CTR LINE PRESENT; HCG, SERUM QUALITATIVE NEGATIVE (NEGATIVE)
[2017-06-21 11:33] LABS: AMPHETAMINES LEVEL URINE NEGATIVE (NEGATIVE); BARBITURATES URINE NEGATIVE (NEGATIVE); BENZODIAZEPINES URINE NEGATIVE (NEGATIVE); CANNABINOIDS URINE POSITIVE (NEGATIVE); COCAINE METABOLITE URINE NEGATIVE (NEGATIVE); METHADONE URINE NEGATIVE (NEGATIVE); OPIATES URINE NEGATIVE (NEGATIVE); PHENCYCLIDINE URINE NEGATIVE (NEGATIVE)
[2017-06-21 11:43] LABS: ACETAMINOPHEN LEVEL < 2.0 UG/ML (10.0-30.0); ALBUMIN 3.4 GM/DL (3.2-5.2); ALBUMIN/GLOBULIN RATIO 1.26 (1.00-1.93); ALKALINE PHOSPHATASE 94 U/L (45-117); ALT/SGPT 13 U/L (12-78); ANION GAP 7 MEQ/L (8-16); AST/SGOT 10 U/L (7-37); BILIRUBIN,DIRECT < 0.1 MG/DL (0.0-0.2); BILIRUBIN,TOTAL 0.4 MG/DL (0.2-1.0); BLOOD UREA NITROGEN 8 MG/DL (7-18); CALCIUM LEVEL 8.4 MG/DL (8.5-10.1); CARBON DIOXIDE LEVEL 25 MEQ/L (21-32); CHLORIDE LEVEL 109 MEQ/L (98-107); CREATININE FOR GFR 0.69 MG/DL (0.55-1.30); GLOMERULAR FILTRATION RATE > 60.0 (>60); GLUCOSE, FASTING 88 MG/DL (70-100); POTASSIUM SERUM 3.5 MEQ/L (3.5-5.1); SALICYLATE LEVEL 3.2 MG/DL (5.0-30.0); SODIUM LEVEL 141 MEQ/L (136-145); TOTAL PROTEIN 6.1 GM/DL (6.4-8.2)
[2017-06-21 11:44] LABS: ETHYL ALCOHOL (ETHANOL) < 0.003 % (0.000-0.010)
[2017-06-21] MEDS ORDERED: MOM 30ML SUSPENSION UDC PO (13:45)
[2017-06-21] MEDS ORDERED: ACETAMINOPHEN TAB 650MG DOSE (2X325MG) PO (13:45)
[2017-06-21] MEDS ORDERED: MAALOX 30 ML SUSP *UDC PO (13:45)
[2017-06-21] MEDS ORDERED: hydrOXYzine 25 MG TAB PO (18:15)
[2017-06-21] MEDS: raNITIdine SYRUP 150 MG/10 ML UDC PO (21:29)
[2017-06-21] MEDS: risperiDONE 1 MG TAB PO (21:30)
[2017-06-21] MEDS: CitaloPRAM (CeleXA) 20 MG TAB PO (21:30)
[2017-06-21] MEDS: traZODone 25MG PER 1/2 TABLET PO (22:36)
[2017-06-22 07:24] LABS: BEDSIDE GLUCOSE 83 MG/DL (70-105)
[2017-06-22] MEDS: NICOTINE 14 MG/24 HR TRANSDERMAL TD (09:00)
[2017-06-22] MEDS: risperiDONE 1 MG TAB PO ×2 (09:36→21:00)
[2017-06-22] MEDS: metFORMIN (GLUCOPHAGE) 1000 MG TABLET PO ×2 (09:36→17:02)
[2017-06-22] MEDS: raNITIdine SYRUP 150 MG/10 ML UDC PO ×2 (09:36→21:00)
[2017-06-22 11:19] LABS: ESTIMATED AVERAGE GLUCOSE 97 MG/DL (60-110)
[2017-06-22 17:04] LABS: BEDSIDE GLUCOSE 117 MG/DL (70-105)
[2017-06-22] MEDS: traZODone 50 MG TAB PO (21:00)
[2017-06-22] MEDS: CitaloPRAM (CeleXA) 20 MG TAB PO (21:00)
[2017-06-23 06:00] LABS: BEDSIDE GLUCOSE 87 MG/DL (70-105)
[2017-06-23 07:56] LABS: HEMATOCRIT 42.4 % (36.0-47.0); HEMOGLOBIN 14.3 g/dl (12.0-16.0); MEAN CORPUSCULAR HEMOGLOBIN 29.7 pg (27.0-33.0); MEAN CORPUSCULAR HGB CONC 33.7 g/dl (32.0-36.5); PLATELET COUNT, AUTOMATED 215 10^3/uL (150-450); RED BLOOD COUNT 4.82 10^6/uL (4.00-5.40); RED CELL DISTRIBUTION WIDTH 14.1 % (11.5-14.5); WHITE BLOOD COUNT 9.7 10^3/uL (4.0-10.0)
[2017-06-23] MEDS: raNITIdine SYRUP 150 MG/10 ML UDC PO ×2 (08:43→21:23)
[2017-06-23] MEDS: metFORMIN (GLUCOPHAGE) 1000 MG TABLET PO ×2 (08:43→17:19)
[2017-06-23] MEDS: risperiDONE 1 MG TAB PO ×2 (08:43→21:23)
[2017-06-23] MEDS: NICOTINE 14 MG/24 HR TRANSDERMAL TD (08:44)
[2017-06-23 17:24] LABS: BEDSIDE GLUCOSE 103 MG/DL (70-105)
[2017-06-23] MEDS: traZODone 50 MG TAB PO (21:23)
[2017-06-23] MEDS: CitaloPRAM (CeleXA) 20 MG TAB PO (21:23)
[2017-06-23] MEDS: hydrOXYzine 25 MG TAB PO (23:15)
[2017-06-24 06:30] LABS: BEDSIDE GLUCOSE 84 MG/DL (70-105)
[2017-06-24] MEDS: raNITIdine SYRUP 150 MG/10 ML UDC PO ×2 (08:04→22:29)
[2017-06-24] MEDS: risperiDONE 1 MG TAB PO ×2 (08:04→22:28)
[2017-06-24] MEDS: metFORMIN (GLUCOPHAGE) 1000 MG TABLET PO ×2 (08:04→17:07)
[2017-06-24 17:13] LABS: BEDSIDE GLUCOSE 107 MG/DL (70-105)
[2017-06-24] MEDS: CitaloPRAM (CeleXA) 20 MG TAB PO (22:28)
[2017-06-24] MEDS: traZODone 50 MG TAB PO (22:28)
[2017-06-25] MEDS: hydrOXYzine 25 MG TAB PO ×2 (00:05→23:20)
[2017-06-25 06:25] LABS: BEDSIDE GLUCOSE 90 MG/DL (70-105)
[2017-06-25] MEDS: raNITIdine SYRUP 150 MG/10 ML UDC PO ×2 (08:23→22:26)
[2017-06-25] MEDS: risperiDONE 1 MG TAB PO ×2 (08:23→22:26)
[2017-06-25] MEDS: metFORMIN (GLUCOPHAGE) 1000 MG TABLET PO ×2 (08:23→17:16)
[2017-06-25] MEDS ORDERED: CEPACOL LOZENGE PO (13:00)
[2017-06-25 17:24] LABS: BEDSIDE GLUCOSE 140 MG/DL (70-105)
[2017-06-25] MEDS: traZODone 50 MG TAB PO (22:26)
[2017-06-25] MEDS: CitaloPRAM (CeleXA) 20 MG TAB PO (22:26)
[2017-06-26] MEDS: IBUPROFEN 600 MG TAB PO (00:28)
[2017-06-26 06:54] LABS: BEDSIDE GLUCOSE 82 MG/DL (70-105)
[2017-06-26] MEDS: risperiDONE 1 MG TAB PO (08:58)
[2017-06-26] MEDS: raNITIdine SYRUP 150 MG/10 ML UDC PO ×2 (08:59→21:15)
[2017-06-26] MEDS: metFORMIN (GLUCOPHAGE) 1000 MG TABLET PO ×2 (08:59→17:04)
[2017-06-26 17:17] LABS: BEDSIDE GLUCOSE 88 MG/DL (70-105)
[2017-06-26] MEDS: traZODone 50 MG TAB PO (21:15)
[2017-06-26] MEDS: risperiDONE 2 MG TAB PO (21:15)
[2017-06-26] MEDS: CitaloPRAM (CeleXA) 20 MG TAB PO (21:15)
[2017-06-26] MEDS: PRAZOSIN 1 MG CAP PO (21:16)
[2017-06-27 06:44] LABS: BEDSIDE GLUCOSE 81 MG/DL (70-105)
[2017-06-27] MEDS: metFORMIN (GLUCOPHAGE) 1000 MG TABLET PO (08:54)
[2017-06-27] MEDS: raNITIdine SYRUP 150 MG/10 ML UDC PO (08:54)
== END 2017-06-27 13:20 | disposition home or self-care (01) | DRG 885 ==
LOC: M PSY 06-22 20:32 → M ED 10:07 → M ED INP 13:40 → M PSY 14:50
DX: F32.3 Major depressive disorder, single episode, severe with psychotic features (principal); F41.1 Generalized anxiety disorder; F12.20 Cannabis dependence, uncomplicated; F60.3 Borderline personality disorder; E11.9 Type 2 diabetes mellitus without complications; E28.2 Polycystic ovarian syndrome; K21.9 Gastro-esophageal reflux disease without esophagitis; F43.10 Post-traumatic stress disorder, unspecified; E66.9 Obesity, unspecified; Z68.35 Body mass index [BMI] 35.0-35.9, adult; F17.210 Nicotine dependence, cigarettes, uncomplicated; Z79.84 Long term (current) use of oral hypoglycemic drugs; Z79.899 Other long term (current) drug therapy

== ENCOUNTER → 2017-07-04 | Outpatient (CLI) | payer MEDICAID | LOC: M OUTALCOH 07:46 | DX: F12.20 Cannabis dependence, uncomplicated (principal) ==

== ENCOUNTER 2017-07-18 10:25 | Outpatient (RCR) | payer MEDICAID | END 2017-08-07 | LOC: M OUTALCOH 10:25 | DX: F12.20 Cannabis dependence, uncomplicated (principal); F17.200 Nicotine dependence, unspecified, uncomplicated ==

== ENCOUNTER 2017-07-24 18:19 | Emergency (ER) | payer OTHER, MEDICAID ==
[2017-07-24] MEDS: NS 1,000 ML IV (22:39)
[2017-07-24 22:45] LABS: BASO % 0.4 % (0.0-1.0); EOS # 0.3 10^3/uL (0.0-0.50); EOS % 2.7 % (0.0-3.0); HEMOGLOBIN 15.3 g/dl (12.0-15.5); IMMATURE GRANULOCYTE % 0.6 % (0-3.0); LYMPH # 1.9 10^3/uL (1.5-6.5); LYMPH % 17.4 % (24.0-44.0); MEAN CORPUSCULAR HEMOGLOBIN 29.9 pg (27.0-33.0); MEAN CORPUSCULAR VOLUME 87.9 fl (80.0-96.0); MONO # 1.2 10^3/uL (0.0-0.8); MONO % 10.4 % (0.0-5.0); NEUTROPHILS # 7.6 10^3/uL (1.8-7.7); NEUTROPHILS % 68.5 % (36.0-66.0); PLATELET COUNT, AUTOMATED 207 10^3/uL (150-450); RED BLOOD COUNT 5.12 10^6/uL (4.00-5.40); RED CELL DISTRIBUTION WIDTH 13.6 % (11.5-14.5); WHITE BLOOD COUNT 11.1 10^3/uL (4.0-10.0)
[2017-07-24] MEDS: ALBUTEROL SULFATE 2.5 MG/0.5 ML INH NEB SOLN NEB (22:56)
[2017-07-24] MEDS: dexameTHASONE 20 MG/5 ML VIAL (J1100) IV (23:00)
[2017-07-24 23:06] LABS: ANION GAP 7 MEQ/L (8-16); BLOOD UREA NITROGEN 13 MG/DL (7-18); CALCIUM LEVEL 9.2 MG/DL (8.5-10.1); CARBON DIOXIDE LEVEL 26 MEQ/L (21-32); CHLORIDE LEVEL 105 MEQ/L (98-107); CREATININE FOR GFR 0.79 MG/DL (0.55-1.30); GLOMERULAR FILTRATION RATE > 60.0 (>60); GLUCOSE, FASTING 87 MG/DL (70-100); POTASSIUM SERUM 3.4 MEQ/L (3.5-5.1); SODIUM LEVEL 138 MEQ/L (136-145)
== END 2017-07-25 01:10 | disposition home or self-care (01) ==
LOC: M ED 07-25 01:10
DX: J40 Bronchitis, not specified as acute or chronic (principal); R19.7 Diarrhea, unspecified; E11.9 Type 2 diabetes mellitus without complications; K21.9 Gastro-esophageal reflux disease without esophagitis; F43.10 Post-traumatic stress disorder, unspecified; F17.200 Nicotine dependence, unspecified, uncomplicated; Z79.899 Other long term (current) drug therapy; Z79.84 Long term (current) use of oral hypoglycemic drugs
CPT/HCPCS: J1100

== ENCOUNTER → 2017-08-08 | Outpatient (CLI) | payer OTHER ==
[2017-08-08 10:54] LABS: ESTIMATED AVERAGE GLUCOSE 105 MG/DL (60-110); HEMOGLOBIN A1c 5.3 %
== END ==
LOC: M LAB 09:14
DX: R73.03 Prediabetes (principal)
CPT/HCPCS: 83036

== ENCOUNTER 2017-08-10 11:00 | Outpatient (RCR) | payer MEDICAID | END 2017-09-07 | LOC: M OUTALCOH 08-17 11:00 | DX: F12.20 Cannabis dependence, uncomplicated (principal); F17.200 Nicotine dependence, unspecified, uncomplicated ==

== ENCOUNTER 2017-09-13 16:46 | Outpatient (RCR) | payer MEDICAID, MEDICARE | END 2017-10-07 | LOC: M OUTALCOH 09-14 11:00 | DX: F12.20 Cannabis dependence, uncomplicated (principal); F17.200 Nicotine dependence, unspecified, uncomplicated ==

== ENCOUNTER 2017-09-21 01:09 | Emergency (ER) | payer OTHER, MEDICARE, MEDICAID ==
[2017-09-21 01:51] LABS: KETONE, URINE AUTO RFX TRACE mg/dL (NEGATIVE); MUCUS, URINE RFX SMALL (NEGATIVE); NITRITE, URINE AUTO RFX NEGATIVE (NEGATIVE); RBC, URINE AUTO RFX 25 /HPF (0-3); SPECIFIC GRAVITY UR AUTO RFX 1.029 (1.002-1.035); SQUAM EPITHELIAL CELL UR AURFX 12 /HPF (0-6)
[2017-09-21 01:52] LABS: LEUKOCYTE ESTERASE UR AUTO RFX 3+ (NEGATIVE); WBC, URINE AUTO RFX TNTC /HPF (0-3)
[2017-09-21] MEDS ORDERED: BACTRIM 160MG/800MG DS TAB PO (03:15)
[2017-09-21] MEDS: PHENAZOPYRIDINE 100 MG TAB PO (03:24)
[2017-09-21] MEDS: CIPROFLOXACIN 500 MG TAB PO (03:24)
== END 2017-09-21 03:33 | disposition home or self-care (01) ==
LOC: M ED 01:09
DX: N39.0 Urinary tract infection, site not specified (principal); E11.9 Type 2 diabetes mellitus without complications; K21.9 Gastro-esophageal reflux disease without esophagitis; F32.9 Major depressive disorder, single episode, unspecified; Z72.0 Tobacco use; Z79.84 Long term (current) use of oral hypoglycemic drugs; Z79.899 Other long term (current) drug therapy
CPT/HCPCS: 81001

== ENCOUNTER 2017-11-05 21:40 | Emergency (ER) | payer OTHER, MEDICARE, MEDICAID ==
[2017-11-05 22:26] LABS: BASO % 0.4 % (0.0-1.0); EOS # 0.2 10^3/uL (0.0-0.50); EOS % 1.8 % (0.0-3.0); HEMATOCRIT 43.7 % (36.0-47.0); HEMOGLOBIN 14.8 g/dl (12.0-15.5); IMMATURE GRANULOCYTE % 0.6 % (0-3.0); LYMPH # 3.3 10^3/uL (1.5-6.5); LYMPH % 34.7 % (24.0-44.0); MEAN CORPUSCULAR HEMOGLOBIN 30.3 pg (27.0-33.0); MEAN CORPUSCULAR HGB CONC 33.9 g/dl (32.0-36.5); MEAN CORPUSCULAR VOLUME 89.4 fl (80.0-96.0); MONO # 0.7 10^3/uL (0.0-0.8); NEUTROPHILS # 5.3 10^3/uL (1.8-7.7); NEUTROPHILS % 55.5 % (36.0-66.0); PLATELET COUNT, AUTOMATED 222 10^3/uL (150-450); RED BLOOD COUNT 4.89 10^6/uL (4.00-5.40); RED CELL DISTRIBUTION WIDTH 13.4 % (11.5-14.5); WHITE BLOOD COUNT 9.5 10^3/uL (4.0-10.0)
[2017-11-05 22:32] LABS: KETONE, URINE AUTO RFX NEGATIVE (NEGATIVE); NITRITE, URINE AUTO RFX NEGATIVE (NEGATIVE); RBC, URINE AUTO RFX 3 /HPF (0-3); SPECIFIC GRAVITY UR AUTO RFX 1.024 (1.002-1.035); SQUAM EPITHELIAL CELL UR AURFX 3 /HPF (0-6); WBC, URINE AUTO RFX 2 /HPF (0-3)
[2017-11-05 22:43] LABS: LEUKOCYTE ESTERASE UR AUTO RFX TRACE (NEGATIVE)
[2017-11-05 22:51] LABS: ALBUMIN 3.8 GM/DL (3.2-5.2); ALBUMIN/GLOBULIN RATIO 1.23 (1.00-1.93); ALKALINE PHOSPHATASE 114 U/L (45-117); ALT/SGPT 19 U/L (12-78); ANION GAP 8 MEQ/L (8-16); AST/SGOT 10 U/L (7-37); BILIRUBIN,DIRECT < 0.1 MG/DL (0.0-0.2); BILIRUBIN,TOTAL 0.3 MG/DL (0.2-1.0); BLOOD UREA NITROGEN 18 MG/DL (7-18); CALCIUM LEVEL 9.2 MG/DL (8.5-10.1); CARBON DIOXIDE LEVEL 29 MEQ/L (21-32); CHLORIDE LEVEL 105 MEQ/L (98-107); CREATININE FOR GFR 0.85 MG/DL (0.55-1.30); GLOMERULAR FILTRATION RATE > 60.0 (>60); GLUCOSE, FASTING 82 MG/DL (70-100); LIPASE 144 U/L (73-393); POTASSIUM SERUM 4.1 MEQ/L (3.5-5.1); SODIUM LEVEL 142 MEQ/L (136-145); TOTAL PROTEIN 6.9 GM/DL (6.4-8.2)
[2017-11-05] MEDS: OMEPRAZOLE 20 MG CAP PO (23:37)
== END 2017-11-05 23:44 | disposition home or self-care (01) ==
LOC: M ED 21:40
DX: R10.13 Epigastric pain (principal); K21.9 Gastro-esophageal reflux disease without esophagitis; E11.9 Type 2 diabetes mellitus without complications; E78.5 Hyperlipidemia, unspecified; E28.2 Polycystic ovarian syndrome; F43.10 Post-traumatic stress disorder, unspecified; F17.200 Nicotine dependence, unspecified, uncomplicated; Z79.84 Long term (current) use of oral hypoglycemic drugs; Z79.899 Other long term (current) drug therapy
CPT/HCPCS: 83690

== ENCOUNTER 2018-01-05 12:59 | Inpatient (IN) | payer MEDICAID, OTHER ==
[2018-01-05 13:40] LABS: HEMATOCRIT 43.8 % (36.0-47.0); MEAN CORPUSCULAR HEMOGLOBIN 30.7 pg (27.0-33.0); MEAN CORPUSCULAR HGB CONC 34.2 g/dl (32.0-36.5); MEAN CORPUSCULAR VOLUME 89.6 fl (80.0-96.0); PLATELET COUNT, AUTOMATED 199 10^3/uL (150-450); RED BLOOD COUNT 4.89 10^6/uL (4.00-5.40); RED CELL DISTRIBUTION WIDTH 13.7 % (11.5-14.5); WHITE BLOOD COUNT 8.7 10^3/uL (4.0-10.0)
[2018-01-05 14:10] LABS: ACETAMINOPHEN LEVEL < 2.0 UG/ML (10.0-30.0); ALBUMIN 4.2 GM/DL (3.2-5.2); ALKALINE PHOSPHATASE 110 U/L (45-117); ALT/SGPT 20 U/L (12-78); ANION GAP 9 MEQ/L (8-16); AST/SGOT 11 U/L (7-37); BILIRUBIN,DIRECT 0.2 MG/DL (0.0-0.2); BILIRUBIN,TOTAL 0.7 MG/DL (0.2-1.0); BLOOD UREA NITROGEN 13 MG/DL (7-18); CALCIUM LEVEL 9.6 MG/DL (8.5-10.1); CARBON DIOXIDE LEVEL 25 MEQ/L (21-32); CHLORIDE LEVEL 106 MEQ/L (98-107); CREATININE FOR GFR 0.73 MG/DL (0.55-1.30); ETHYL ALCOHOL (ETHANOL) < 0.003 % (0.000-0.010); GLOMERULAR FILTRATION RATE > 60.0 (>60); GLUCOSE, FASTING 86 MG/DL (70-100); POTASSIUM SERUM 4.1 MEQ/L (3.5-5.1); SODIUM LEVEL 140 MEQ/L (136-145); TOTAL PROTEIN 7.2 GM/DL (6.4-8.2)
[2018-01-05 14:13] LABS: AMPHETAMINES LEVEL URINE NEGATIVE (NEGATIVE); BARBITURATES URINE NEGATIVE (NEGATIVE); BENZODIAZEPINES URINE NEGATIVE (NEGATIVE); CANNABINOIDS URINE POSITIVE (NEGATIVE); COCAINE METABOLITE URINE NEGATIVE (NEGATIVE); METHADONE URINE NEGATIVE (NEGATIVE); OPIATES URINE NEGATIVE (NEGATIVE); PHENCYCLIDINE URINE NEGATIVE (NEGATIVE)
[2018-01-05 14:30] LABS: CONTROL LINE HCG INT CTR LINE PRESENT; HCG, SERUM QUALITATIVE NEGATIVE (NEGATIVE)
[2018-01-05] MEDS: NICOTINE 21MG/24HR 1 EA TRANSDERMAL TD (17:15)
[2018-01-05] MEDS: traZODone 50 MG TAB PO (23:32)
[2018-01-06] MEDS: INFLUENZA QUADRIVALENT PF VACCINE 0.5ML SYRINGE (90686) IM (09:35)
[2018-01-06] MEDS ORDERED: NICOTINE POLACRILEX 2 MG GUM PO (11:00)
[2018-01-06] MEDS ORDERED: QUEtiapine FUMARATE 50 MG TAB PO (12:00)
[2018-01-06] MEDS ORDERED: MIRTAZAPINE 15 MG TAB PO (12:15)
[2018-01-06] MEDS ORDERED: hydrOXYzine 50 MG TAB PO (14:00)
[2018-01-06] MEDS: metFORMIN (GLUCOPHAGE) 1000 MG TABLET PO (17:12)
[2018-01-06] MEDS: PRAZOSIN 1 MG CAP PO (21:03)
[2018-01-06] MEDS: CitaloPRAM (CeleXA) 20 MG TAB PO (21:03)
[2018-01-06] MEDS: risperiDONE 2 MG TAB PO (21:03)
[2018-01-06] MEDS: traZODone 50 MG TAB PO (21:04)
[2018-01-06] MEDS: OMEPRAZOLE 20 MG CAP PO (21:04)
[2018-01-07 06:38] LABS: BEDSIDE GLUCOSE 100 MG/DL (70-105)
[2018-01-07 07:44] LABS: ESTIMATED AVERAGE GLUCOSE 97 MG/DL (60-110)
[2018-01-07] MEDS: metFORMIN (GLUCOPHAGE) 1000 MG TABLET PO ×2 (08:46→17:01)
[2018-01-07 16:29] LABS: BEDSIDE GLUCOSE 103 MG/DL (70-105)
[2018-01-07] MEDS: MIRTAZAPINE 15 MG TAB PO (20:15)
[2018-01-07] MEDS: risperiDONE 2 MG TAB PO (20:15)
[2018-01-07] MEDS: PRAZOSIN 1 MG CAP PO (20:16)
[2018-01-07] MEDS: OMEPRAZOLE 20 MG CAP PO (20:16)
[2018-01-07] MEDS: CitaloPRAM (CeleXA) 20 MG TAB PO (20:16)
[2018-01-07] MEDS: ACETAMINOPHEN TAB 650MG DOSE (2X325MG) PO (21:45)
[2018-01-08] MEDS: metFORMIN (GLUCOPHAGE) 1000 MG TABLET PO ×2 (07:40→17:00)
[2018-01-08 17:06] LABS: BEDSIDE GLUCOSE 170 MG/DL (70-105)
[2018-01-08] MEDS: OMEPRAZOLE 20 MG CAP PO (20:27)
[2018-01-08] MEDS: CitaloPRAM (CeleXA) 20 MG TAB PO (20:27)
[2018-01-08] MEDS: risperiDONE 2 MG TAB PO (20:27)
[2018-01-08] MEDS: PRAZOSIN 1 MG CAP PO (20:28)
[2018-01-08] MEDS: hydrOXYzine 50 MG TAB PO (21:35)
[2018-01-09] MEDS: metFORMIN (GLUCOPHAGE) 1000 MG TABLET PO (07:24)
== END 2018-01-09 13:00 | disposition home or self-care (01) | DRG 751 ==
LOC: M ED 12:59 → M ED INP 17:14 → M PSY 18:05
DX: F33.2 Major depressive disorder, recurrent severe without psychotic features (principal); F60.3 Borderline personality disorder; F17.210 Nicotine dependence, cigarettes, uncomplicated; K21.9 Gastro-esophageal reflux disease without esophagitis; E11.9 Type 2 diabetes mellitus without complications; E66.9 Obesity, unspecified; Z63.4 Disappearance and death of family member; Z88.8 Allergy status to other drugs, medicaments and biological substances; Z90.49 Acquired absence of other specified parts of digestive tract; Z79.84 Long term (current) use of oral hypoglycemic drugs; Z68.37 Body mass index [BMI] 37.0-37.9, adult; Z79.899 Other long term (current) drug therapy; Z62.810 Personal history of physical and sexual abuse in childhood

== ENCOUNTER 2018-02-23 18:15 | Emergency (ER) | payer OTHER ==
[2018-02-23] MEDS: GI COCKTAIL 50ML BTL(HYOSCYAMINE/MAALOX/LIDOCAINE VISCOUS)(1:3:1) PO (19:15)
[2018-02-23] MEDS: TRIMETHOBENZAMIDE HCL INJ 200 MG/2 ML VIAL (J3250) IM (19:15)
[2018-02-23 19:29] LABS: APPEARANCE, URINE HAZY (CLEAR); BACTERIA, URINE AUTO NEGATIVE (NEGATIVE); BILIRUBIN, URINE AUTO NEGATIVE (NEGATIVE); BLOOD, URINE BLOOD NEGATIVE (NEGATIVE); COLOR, URINE YELLOW (YELLOW); GLUCOSE, URINE (UA) AUTO NEGATIVE (NEGATIVE); KETONE, URINE AUTO NEGATIVE (NEGATIVE); LEUKOCYTE ESTERASE, URINE AUTO TRACE (NEGATIVE); NITRITE, URINE AUTO NEGATIVE (NEGATIVE); PROTEIN, URINE AUTO NEGATIVE (NEGATIVE); RBC, URINE AUTO 1 /HPF (0-3); SPECIFIC GRAVITY URINE AUTO 1.023 (1.002-1.035); SQUAMOUS EPITHELIAL CELL UR AU 3 /HPF (0-6); UROBILINOGEN, URINE AUTO 0.2 mg/dL (0.0-2.0); WBC, URINE AUTO 2 /HPF (0-3)
[2018-02-23 19:37] LABS: BASO % 0.5 % (0.0-1.0); EOS # 0.2 10^3/uL (0.0-0.50); EOS % 2.2 % (0.0-3.0); HEMATOCRIT 43.1 % (36.0-47.0); IMMATURE GRANULOCYTE % 0.4 % (0-3.0); LYMPH # 2.3 10^3/uL (1.5-6.5); LYMPH % 31.5 % (24.0-44.0); MEAN CORPUSCULAR HEMOGLOBIN 30.8 pg (27.0-33.0); MEAN CORPUSCULAR HGB CONC 34.8 g/dl (32.0-36.5); MEAN CORPUSCULAR VOLUME 88.5 fl (80.0-96.0); MONO # 0.6 10^3/uL (0.0-0.8); MONO % 7.7 % (0.0-5.0); NEUTROPHILS # 4.2 10^3/uL (1.8-7.7); NEUTROPHILS % 57.7 % (36.0-66.0); PLATELET COUNT, AUTOMATED 208 10^3/uL (150-450); RED BLOOD COUNT 4.87 10^6/uL (4.00-5.40); WHITE BLOOD COUNT 7.3 10^3/uL (4.0-10.0)
[2018-02-23 20:16] LABS: ALBUMIN 3.8 GM/DL (3.2-5.2); ALBUMIN/GLOBULIN RATIO 1.03 (1.00-1.93); ALKALINE PHOSPHATASE 127 U/L (45-117); ALT/SGPT 33 U/L (12-78); AMYLASE 41 U/L (25-115); ANION GAP 6 MEQ/L (8-16); AST/SGOT 23 U/L (7-37); BILIRUBIN,TOTAL 0.3 MG/DL (0.2-1.0); BLOOD UREA NITROGEN 18 MG/DL (7-18); CALCIUM LEVEL 9.1 MG/DL (8.5-10.1); CARBON DIOXIDE LEVEL 28 MEQ/L (21-32); CHLORIDE LEVEL 104 MEQ/L (98-107); CREATININE FOR GFR 0.88 MG/DL (0.55-1.30); GLOMERULAR FILTRATION RATE > 60.0 (>60); GLUCOSE, FASTING 105 MG/DL (70-100); LIPASE 146 U/L (73-393); POTASSIUM SERUM 3.7 MEQ/L (3.5-5.1); SODIUM LEVEL 138 MEQ/L (136-145); TOTAL PROTEIN 7.5 GM/DL (6.4-8.2)
== END 2018-02-23 20:39 | disposition home or self-care (01) ==
LOC: M ED 18:15
DX: K21.9 Gastro-esophageal reflux disease without esophagitis (principal); E11.9 Type 2 diabetes mellitus without complications; E28.2 Polycystic ovarian syndrome; F33.9 Major depressive disorder, recurrent, unspecified; F41.9 Anxiety disorder, unspecified; Z79.899 Other long term (current) drug therapy; Z79.84 Long term (current) use of oral hypoglycemic drugs; Z88.8 Allergy status to other drugs, medicaments and biological substances; F17.210 Nicotine dependence, cigarettes, uncomplicated
CPT/HCPCS: J3250

== ENCOUNTER → 2018-02-26 | Outpatient (CLI) | payer OTHER | LOC: M CARPUL 09:51 | DX: R06.02 Shortness of breath (principal) | CPT/HCPCS: 94010 ==

== ENCOUNTER → 2018-03-06 | Outpatient (CLI) | payer OTHER ==
[2018-03-06 12:03] LABS: ANION GAP 8 MEQ/L (8-16); BLOOD UREA NITROGEN 17 MG/DL (7-18); CALCIUM LEVEL 8.5 MG/DL (8.5-10.1); CARBON DIOXIDE LEVEL 25 MEQ/L (21-32); CHLORIDE LEVEL 107 MEQ/L (98-107); CHOLESTEROL LEVEL 135 MG/DL (<200); CHOLESTEROL RISK RATIO 5.625 (<5); CREATININE FOR GFR 0.72 MG/DL (0.55-1.30); GLOMERULAR FILTRATION RATE > 60.0 (>60); GLUCOSE, FASTING 93 MG/DL (70-100); HDL CHOLESTEROL 24 MG/DL (>40); LDL CHOLESTEROL 50 MG/DL (<100); NON-HDL-C 111 MG/DL; POTASSIUM SERUM 4.2 MEQ/L (3.5-5.1); SODIUM LEVEL 140 MEQ/L (136-145); TRIGLYCERIDES LEVEL 307 MG/DL (<150)
== END ==
LOC: M LAB 10:36
DX: E28.2 Polycystic ovarian syndrome (principal)
CPT/HCPCS: 80061

== ENCOUNTER → 2018-03-14 | Outpatient (REF) | payer OTHER ==
[2018-03-14 13:37] LABS: CHLAMYDIA DNA AMPLIFICATION POSITIVE (NEGATIVE); GC DNA AMPLIFICATION NEGATIVE (NEGATIVE)
== END ==
LOC: M SFHCWAGY 11:41
DX: R39.15 Urgency of urination (principal); Z11.3 Encounter for screening for infections with a predominantly sexual mode of transmission
CPT/HCPCS: 87086

== ENCOUNTER 2018-06-22 01:48 | Emergency (ER) | payer OTHER ==
[~2018-06-22] VITALS: Ht 154.9 cm; Wt 90.9 kg
[~2018-06-22 01:48] MED LIST changes: +BACT800T5 PO; +CELE40TA PO; +CIPR-249 PO; +CITA20TA4 PO; +CVS20TAB PO; +HYDR50TA70 PO; +IBUP-1022 PO; +MINI1CAP PO; +MIRT15TA3 PO; +NEXP1IMP SC; +NICO21DI31 TD; +NICO4GUM31 PO; +OMEP40CA2 PO; +PRAZ1CAP PO; +PRED20TA PO; +RANI15TA PO; +RANI1TAB6 PO; +REGL10TA6 PO; +RISP1TAB3 PO; +RISP2TAB3 PO; +RISP2TAB32 PO; +SUCR1SUS PO; +TRAZ-160 PO; +TRAZ25TA PO; -TRAZ50TA11 PO; +ZOFR4TAB14 PO
[2018-06-22] MEDS ORDERED: NS 1,000 ML IV ONE (02:30)
[2018-06-22 02:55] LABS: BASO % 0.5 % (0.0-1.0); EOS # 0.3 10^3/uL (0.0-0.50); EOS % 3.6 % (0.0-3.0); HEMATOCRIT 42.8 % (36.0-47.0); HEMOGLOBIN 14.6 g/dl (12.0-15.5); LYMPH # 2.5 10^3/uL (1.5-6.5); LYMPH % 31.1 % (24.0-44.0); MEAN CORPUSCULAR HEMOGLOBIN 30.2 pg (27.0-33.0); MEAN CORPUSCULAR HGB CONC 34.1 g/dl (32.0-36.5); MEAN CORPUSCULAR VOLUME 88.4 fl (80.0-96.0); MONO # 0.7 10^3/uL (0.0-0.8); MONO % 8.1 % (0.0-5.0); NEUTROPHILS # 4.5 10^3/uL (1.8-7.7); NEUTROPHILS % 56.2 % (36.0-66.0); PLATELET COUNT, AUTOMATED 230 10^3/uL (150-450); RED BLOOD COUNT 4.84 10^6/uL (4.00-5.40)
[2018-06-22 03:14] LABS: HCG, SERUM QUALITATIVE NEGATIVE (NEGATIVE)
[2018-06-22 03:18] LABS: ALBUMIN 3.7 GM/DL (3.2-5.2); ALT/SGPT 22 U/L (12-78); BILIRUBIN,DIRECT < 0.1 MG/DL (0.0-0.2); BILIRUBIN,TOTAL 0.3 MG/DL (0.2-1.0); BLOOD UREA NITROGEN 14 MG/DL (7-18); CALCIUM LEVEL 8.4 MG/DL (8.5-10.1); CARBON DIOXIDE LEVEL 25 MEQ/L (21-32); CHLORIDE LEVEL 110 MEQ/L (98-107); CREATININE FOR GFR 0.77 MG/DL (0.55-1.30); GLOMERULAR FILTRATION RATE > 60.0 (>60); GLUCOSE, FASTING 117 MG/DL (70-100); LIPASE 140 U/L (73-393); POTASSIUM SERUM 3.9 MEQ/L (3.5-5.1); SODIUM LEVEL 142 MEQ/L (136-145); TOTAL PROTEIN 6.9 GM/DL (6.4-8.2)
[2018-06-22] MEDS ORDERED: ONDANSETRON 4MG/2ML VIAL (J2405) IV ONE (04:45)
[2018-06-22] MEDS ORDERED: ZOFR4TAB16 PO (05:21)
[2018-06-22 05:24] VITALS: BP 110/69
== END 2018-06-22 05:32 | disposition home or self-care (01) ==
LOC: M ED 01:48
DX: R11.2 Nausea with vomiting, unspecified (principal); R19.7 Diarrhea, unspecified; R73.03 Prediabetes; E28.2 Polycystic ovarian syndrome; F33.9 Major depressive disorder, recurrent, unspecified; F41.9 Anxiety disorder, unspecified; Z79.899 Other long term (current) drug therapy; Z88.8 Allergy status to other drugs, medicaments and biological substances; F17.210 Nicotine dependence, cigarettes, uncomplicated
CPT/HCPCS: 36415; 80048; 80076; 83690; 84703; 85025; 93041; 96361; 96374; 99284; J2405

== ENCOUNTER → 2018-08-15 | Outpatient (REF) | payer OTHER ==
[~2018-08-15] MED LIST changes: -CITA20TA4 PO; +CITA20TA6 PO; -CVS20TAB PO; +OMEP20TA9 PO; +ZOFR4TAB16 PO
== END ==
LOC: M SFHCWAGY 16:13
PROVIDERS: ATTEND Nurse Practitioner Family
DX: Z12.4 Encounter for screening for malignant neoplasm of cervix (principal)

== ENCOUNTER → 2018-08-15 | Outpatient (REF) | payer OTHER ==
[2018-08-15 20:57] LABS: CHLAMYDIA DNA AMPLIFICATION NEGATIVE (NEGATIVE); GC DNA AMPLIFICATION NEGATIVE (NEGATIVE)
== END ==
LOC: M SFHCWAGY 18:06
PROVIDERS: ATTEND Nurse Practitioner Family
DX: Z11.3 Encounter for screening for infections with a predominantly sexual mode of transmission (principal)

== ENCOUNTER → 2018-08-16 | Outpatient (CLI) | payer OTHER ==
--- NOTE | 2018-08-17 01:36 | REP ---
Clinical: Dorsalgia. Thoracic pain. Technique: AP, lateral, and swimmers views. Findings: Alignment and kyphosis is maintained. Vertebral bodies intact. No acute fracture / compression injury or subluxation. No degenerative changes. Paravertebral soft tissues are normal. Impression: Normal thoracic spine series. Electronically Signed by Valentino Weldon MD 08/17/2018 01:27 A
--- NOTE | 2018-08-17 02:38 | REP ---
Clinical: Dorsalgia . Technique: AP, lateral, flexion/extension bilateral oblique, and coned-down views. Findings: Alignment and lordosis is maintained. The vertebral bodies including transverse process and spinous processes are intact and normal. There is no evidence for acute fracture / compression injury or subluxation. No evidence for spondylolysis or spondylolisthesis. No significant degenerative change is noted. Impression: Normal lumbosacral spine radiograph series. Electronically Signed by Valentino Weldon MD 08/17/2018 02:29 A
== END ==
LOC: M RAD 14:47
PROVIDERS: ATTEND Student in an Organized Health Care Education/Training Program
DX: M54.9 Dorsalgia, unspecified (principal)

== ENCOUNTER → 2018-08-23 | Outpatient (CLI) | payer OTHER ==
--- NOTE | 2018-08-24 16:10 | REP ---
Clinical: Pelvic pain . Technique: Transabdominal pelvic ultrasound followed by transvaginal examination for better evaluation of the endometrium and adnexa with color Doppler evaluation of the ovaries. Findings: Bladder is unremarkable and measures 5.4 x 3.3 x 2.6 cm . Normal anteverted uterus measures 7.2 x 2.7 x 3.7 cm . The endometrial complex measures up to 9.4 mm thickness. No discrete uterine or endometrial abnormalities are appreciated. Bilateral ovaries are normal in appearance and vascularity without evidence for torsion. Right ovary measures 3.3 x 2.6 x 3.1 cm ; R I = 0.57 . Left ovary measures 3.0 x 1.6 x 1.6 cm ; R I = 0.41 . No pelvic fluid or adnexal mass lesions . Impression: 1. Normal pelvic ultrasound
== END ==
LOC: M WHC 14:36
PROVIDERS: ATTEND Nurse Practitioner Family
DX: R10.2 Pelvic and perineal pain (principal)

== ENCOUNTER 2018-10-25 17:41 | Emergency (ER) | payer OTHER ==
[~2018-10-25] VITALS: Ht 154.9 cm; Wt 93.2 kg
[~2018-10-25 17:41] MED LIST changes: -TRAZ-160 PO; +TRAZ-252 PO; +TRAZ1TAB10 PO; +TRAZ1TAB11 PO; -TRAZ25TA PO; -TRAZO50TA PO
[2018-10-25 18:29] LABS: HEMATOCRIT 47.5 % (36.0-47.0); MEAN CORPUSCULAR HEMOGLOBIN 30.4 pg (27.0-33.0); MEAN CORPUSCULAR HGB CONC 33.7 g/dl (32.0-36.5); MEAN CORPUSCULAR VOLUME 90.1 fl (80.0-96.0); PLATELET COUNT, AUTOMATED 216 10^3/uL (150-450); RED BLOOD COUNT 5.27 10^6/uL (4.00-5.40); WHITE BLOOD COUNT 8.5 10^3/uL (4.0-10.0)
[2018-10-25 18:58] LABS: HCG, SERUM QUALITATIVE NEGATIVE (NEGATIVE)
[2018-10-25 19:01] LABS: ACETAMINOPHEN LEVEL < 2.0 UG/ML (10.0-30.0); ALBUMIN 3.9 GM/DL (3.2-5.2); ALT/SGPT 23 U/L (12-78); BILIRUBIN,DIRECT 0.1 MG/DL (0.0-0.2); BILIRUBIN,TOTAL 0.6 MG/DL (0.2-1.0); BLOOD UREA NITROGEN 8 MG/DL (7-18); CALCIUM LEVEL 9.3 MG/DL (8.5-10.1); CARBON DIOXIDE LEVEL 27 MEQ/L (21-32); CHLORIDE LEVEL 108 MEQ/L (98-107); CREATININE FOR GFR 0.76 MG/DL (0.55-1.30); ETHYL ALCOHOL (ETHANOL) < 0.003 % (0.000-0.010); GLOMERULAR FILTRATION RATE > 60.0 (>60); GLUCOSE, FASTING 82 MG/DL (70-100); SALICYLATE LEVEL 2.4 MG/DL (5.0-30.0); SODIUM LEVEL 142 MEQ/L (136-145); THYROID STIMULATING HORMONE 0.938 uIU/ML (0.358-3.740); TOTAL PROTEIN 7.2 GM/DL (6.4-8.2)
[2018-10-25 20:11] LABS: AMPHETAMINES LEVEL URINE NEGATIVE (NEGATIVE); BARBITURATES URINE NEGATIVE (NEGATIVE); BENZODIAZEPINES URINE NEGATIVE (NEGATIVE); CANNABINOIDS URINE POSITIVE (NEGATIVE); COCAINE METABOLITE URINE NEGATIVE (NEGATIVE); METHADONE URINE NEGATIVE (NEGATIVE); OPIATES URINE NEGATIVE (NEGATIVE); PHENCYCLIDINE URINE NEGATIVE (NEGATIVE)
[2018-10-25 21:00] VITALS: BP 132/89
== END 2018-10-25 21:01 | disposition home or self-care (01) ==
LOC: M ED 17:41
DX: F33.9 Major depressive disorder, recurrent, unspecified (principal); Z79.899 Other long term (current) drug therapy; Z88.8 Allergy status to other drugs, medicaments and biological substances; F17.210 Nicotine dependence, cigarettes, uncomplicated
CPT/HCPCS: 36415; 80048; 80076; 80307; 84443; 84703; 85027; 99284; G0480

== ENCOUNTER 2018-11-24 14:14 | Emergency (ER) | payer OTHER ==
[~2018-11-24] VITALS: Ht 154.9 cm; Wt 90.5 kg
[~2018-11-24 14:14] MED LIST changes: +HYDR1TAB33 PO; -HYDRO50TAB PO; +METF-791 PO; -METF500T4 PO; +RANI-356 PO; -RANI1TAB6 PO
[2018-11-24 14:15] VITALS: BP 130/78
[2018-11-24] MEDS ORDERED: PROAAER10 INH (14:33)
[2018-11-24] MEDS ORDERED: PRED20TA PO (14:33)
[2018-11-24] MEDS ORDERED: AUGM875T28 PO (14:33)
[2018-11-24] MEDS ORDERED: AUGMENTIN 875 MG TAB PO ONE (14:45)
== END 2018-11-24 14:50 | disposition home or self-care (01) ==
LOC: M ED 14:14
DX: J20.9 Acute bronchitis, unspecified (principal); J01.90 Acute sinusitis, unspecified; Z72.0 Tobacco use; R51 Headache; R56.9 Unspecified convulsions; F19.10 Other psychoactive substance abuse, uncomplicated; E78.00 Pure hypercholesterolemia, unspecified; K21.9 Gastro-esophageal reflux disease without esophagitis; E28.2 Polycystic ovarian syndrome; E11.9 Type 2 diabetes mellitus without complications; F41.9 Anxiety disorder, unspecified; F32.9 Major depressive disorder, single episode, unspecified; Z79.899 Other long term (current) drug therapy; Z88.5 Allergy status to narcotic agent

== ENCOUNTER → 2019-04-16 | Outpatient (CLI) | payer OTHER ==
[~2019-04-16] MED LIST changes: +AUGM875T28 PO; +FLUO20CA20 PO; -FLUO20CA8 PO; -OMEP40CA2 PO; +OMEP40CA97 PO; +PROAAER10 INH; -RANI-356 PO; +RANI-397 PO
--- NOTE | 2019-04-16 12:10 | REP ---
Focused bilateral breast sonography: History: Bilateral breast lumps. Right breast sonographic findings: The right breast is scanned through the palpable lump, 10 o'clock to 12 o'clock. Heterogeneous fibroglandular background echotexture is seen. No cyst or mass is observed. The left breast is scanned from 12 o'clock to 2 o'clock with palpable lump at 1 o'clock heterogeneous fibroglandular background echotexture is seen. There is a hypoechoic area 4.1 cm from the nipple at 1 o'clock position in the left breast measuring 8 x 8 x 4 mm. Its long axis is parallel to the skin. It is most compatible with a mildly dilated duct. It does not meet criteria of a simple cyst. Impression: 1. BIRADS category 1 negative right breast sonographic findings. Clinical followup is advised. 2. BIRADS category 3 probably benign left breast sonographic findings: Oval-shaped hypoechoic area 8 mm in greatest diameter at 1 o'clock position in the left breast. 6-month followup sonography suggested. Clinical followup is advised. Electronically Signed by Billy Lawrence MD 04/16/2019 01:10 P
== END ==
LOC: M RAD 11:17
PROVIDERS: ATTEND Nurse Practitioner Family
DX: N63.20 Unspecified lump in the left breast, unspecified quadrant (principal)

== ENCOUNTER 2019-05-14 22:00 | Emergency (ER) | payer OTHER ==
[~2019-05-14] VITALS: Ht 154.9 cm; Wt 85.7 kg
[~2019-05-14 22:00] MED LIST changes: +SUCR1ORA PO; -SUCR1SUS PO
[2019-05-14] MEDS ORDERED: VENL37.598 PO (22:10)
[2019-05-14 22:37] LABS: BASO # 0.1 10^3/uL (0.0-0.2); BASO % 0.6 % (0.0-1.0); EOS # 0.2 10^3/uL (0.0-0.5); HEMATOCRIT 45.3 % (36.0-47.0); HEMOGLOBIN 14.8 g/dl (12.0-15.5); LYMPH # 2.8 10^3/uL (1.5-5.0); LYMPH % 32.5 % (24.0-44.0); MEAN CORPUSCULAR HEMOGLOBIN 29.7 pg (27.0-33.0); MEAN CORPUSCULAR HGB CONC 32.7 g/dl (32.0-36.5); MONO # 0.7 10^3/uL (0.0-0.8); MONO % 8.6 % (0.0-5.0); NEUTROPHILS # 4.7 10^3/uL (1.5-8.5); NEUTROPHILS % 55.7 % (36.0-66.0); PLATELET COUNT, AUTOMATED 229 10^3/uL (150-450); RED BLOOD COUNT 4.98 10^6/uL (4.00-5.40); WHITE BLOOD COUNT 8.5 10^3/uL (4.0-10.0)
[2019-05-14 23:04] LABS: ALBUMIN 3.8 GM/DL (3.2-5.2); ALT/SGPT 19 U/L (12-78); BILIRUBIN,DIRECT 0.1 MG/DL (0.0-0.2); BILIRUBIN,TOTAL 0.4 MG/DL (0.2-1.0); BLOOD UREA NITROGEN 12 MG/DL (7-18); CALCIUM LEVEL 8.7 MG/DL (8.5-10.1); CARBON DIOXIDE LEVEL 29 MEQ/L (21-32); CHLORIDE LEVEL 107 MEQ/L (98-107); CREATININE FOR GFR 0.83 MG/DL (0.55-1.30); GLOMERULAR FILTRATION RATE > 60.0 (>60); GLUCOSE, FASTING 100 MG/DL (70-100); LIPASE 117 U/L (73-393); POTASSIUM SERUM 4.2 MEQ/L (3.5-5.1); SODIUM LEVEL 140 MEQ/L (136-145); TOTAL PROTEIN 6.8 GM/DL (6.4-8.2)
[2019-05-14 23:13] LABS: HCG, SERUM QUALITATIVE NEGATIVE (NEGATIVE)
[2019-05-15] MEDS ORDERED: cefTRIAXone SOD 250 MG VIAL (J0696) IM ONE (00:30)
[2019-05-15] MEDS ORDERED: LIDOCAINE 1% SDV 5 ML VIAL DILUENT ONE (00:30)
[2019-05-15] MEDS ORDERED: AZITHROMYCIN 250 MG TAB PO ONE (00:30)
[2019-05-15] MEDS ORDERED: FLAG500T PO (00:31)
[2019-05-15 00:50] VITALS: BP 129/79
[2019-05-15 01:38] LABS: CHLAMYDIA DNA AMPLIFICATION NEGATIVE (NEGATIVE); GC DNA AMPLIFICATION NEGATIVE (NEGATIVE)
== END 2019-05-15 00:52 | disposition home or self-care (01) ==
LOC: M ED 22:00
DX: N76.0 Acute vaginitis (principal); Z20.2 Contact with and (suspected) exposure to infections with a predominantly sexual mode of transmission; E11.9 Type 2 diabetes mellitus without complications; K21.9 Gastro-esophageal reflux disease without esophagitis; F32.9 Major depressive disorder, single episode, unspecified; F17.210 Nicotine dependence, cigarettes, uncomplicated; Z88.8 Allergy status to other drugs, medicaments and biological substances; Z79.899 Other long term (current) drug therapy; Z79.84 Long term (current) use of oral hypoglycemic drugs
CPT/HCPCS: 36415; 80048; 80076; 81001; 83690; 84703; 85025; 87086; 87210; 87491; 87591; 96372; 99283; J0696

== ENCOUNTER 2019-07-19 05:06 | Emergency (ER) | payer OTHER ==
[~2019-07-19] VITALS: Ht 154.9 cm; Wt 87.9 kg
[~2019-07-19 05:06] MED LIST changes: +FLAG500T PO; +VENL37.598 PO
[2019-07-19] MEDS ORDERED: COMBIVENT RESPIMAT 100-20MCG INHALER 4GM INH ONE (05:30)
[2019-07-19 06:16] VITALS: BP 153/91
[2019-07-19] MEDS ORDERED: VENTAER INH (06:48)
--- NOTE | 2019-07-19 07:21 | REP ---
Portable chest x-ray: Single view. History: Shortness of breath and cough. Comparison study: July 24, 2017. Findings: Lungs are well inflated and free of infiltrate. Pleural angles are sharp. Heart is not enlarged. Pulmonary vasculature is not increased. A no significant bony abnormality. Impression: No acute disease seen. Electronically Signed by Billy Lawrence MD 07/19/2019 07:13 A
== END 2019-07-19 07:03 | disposition home or self-care (01) ==
LOC: M ED 05:06
DX: J02.9 Acute pharyngitis, unspecified (principal); R05 Cough; J34.89 Other specified disorders of nose and nasal sinuses; R06.02 Shortness of breath; F17.200 Nicotine dependence, unspecified, uncomplicated; Z88.8 Allergy status to other drugs, medicaments and biological substances; Z79.899 Other long term (current) drug therapy; Z79.84 Long term (current) use of oral hypoglycemic drugs
CPT/HCPCS: 71045; 87486; 87581; 87633; 87798; 87880; 99284; U0002

== ENCOUNTER → 2019-10-31 | Outpatient (CLI) | payer OTHER ==
[~2019-10-31] MED LIST changes: -METF-791 PO; +METF-838 PO; +NICO-267 PO; -NICO4GUM31 PO; +VENTAER INH
--- NOTE | 2019-10-31 09:30 | REP ---
FOCUSED LEFT BREAST SONOGRAPHY: HISTORY: Abnormal left breast ultrasound. 6-month followup for palpable area with pain in the left breast at the 1 -o'clock position, 4 cm from the nipple. Comparison breast sonography April 16, 2019 was BIRADS 3 oval-shaped hypoechoic 8 mm area at 1-o'clock position. Followup was recommended. FINDINGS: Somewhat heterogeneous normal fibroglandular background echotexture is seen. Today at the 1-o'clock position, the previously noted oval-shaped hypoechoic area is again seen. There is enhanced through transmission and well-defined margins consistent with a cyst. It is felt to be unchanged in appearance and size. Current dimensions are measured at 9 x 9 x 2 mm. It is located 4 cm from the nipple as before. IMPRESSION: Stable oval shaped hypoechoic lesion consistent with a cyst. BIRADS category 2 benign findings. Clinical followup is advised.
== END ==
LOC: M WHC 08:05
PROVIDERS: ATTEND Nurse Practitioner Family
DX: R92.8 Other abnormal and inconclusive findings on diagnostic imaging of breast (principal)

== ENCOUNTER 2020-02-20 21:37 | Emergency (ER) | payer OTHER ==
[~2020-02-20] VITALS: Ht 154.9 cm; Wt 90.7 kg
[2020-02-20] MEDS ORDERED: HYDR-3363 PO (22:06)
[2020-02-21 00:01] VITALS: BP 153/98
== END 2020-02-21 00:07 | disposition home or self-care (01) ==
LOC: M ED 21:37
DX: B82.0 Intestinal helminthiasis, unspecified (principal); E11.9 Type 2 diabetes mellitus without complications; E28.2 Polycystic ovarian syndrome; K21.9 Gastro-esophageal reflux disease without esophagitis; F17.210 Nicotine dependence, cigarettes, uncomplicated; Z88.5 Allergy status to narcotic agent; Z79.899 Other long term (current) drug therapy; Z79.84 Long term (current) use of oral hypoglycemic drugs

== ENCOUNTER 2020-02-27 07:45 | Emergency (ER) | payer OTHER ==
[~2020-02-27] VITALS: Ht 154.9 cm; Wt 90.5 kg
[~2020-02-27 07:45] MED LIST changes: +RISP-8 PO; +RISP-9 PO; -RISP1TAB3 PO; -RISP2TAB3 PO
[2020-02-27] MEDS ORDERED: ONDANSETRON 4MG/2ML VIAL IV ONE (08:30)
[2020-02-27] MEDS ORDERED: NS 1,000 ML IV ONE ×2 (08:30→10:00)
[2020-02-27 09:06] LABS: BASO # 0.1 10^3/uL (0.0-0.2); BASO % 0.3 % (0.0-1.0); EOS # 0.1 10^3/uL (0.0-0.5); EOS % 0.7 % (0.0-3.0); HEMATOCRIT 46.1 % (36.0-47.0); HEMOGLOBIN 15.3 g/dl (12.0-15.5); LYMPH # 1.5 10^3/uL (1.5-5.0); LYMPH % 8.9 % (24.0-44.0); MEAN CORPUSCULAR HEMOGLOBIN 30.4 pg (27.0-33.0); MEAN CORPUSCULAR HGB CONC 33.2 g/dl (32.0-36.5); MEAN CORPUSCULAR VOLUME 91.7 fl (80.0-96.0); MONO % 6.1 % (0.0-5.0); NEUTROPHILS # 13.8 10^3/uL (1.5-8.5); NEUTROPHILS % 83.4 % (36.0-66.0); PLATELET COUNT, AUTOMATED 213 10^3/uL (150-450); RED BLOOD COUNT 5.03 10^6/uL (4.00-5.40); WHITE BLOOD COUNT 16.6 10^3/uL (4.0-10.0)
[2020-02-27 09:22] LABS: ALBUMIN 3.9 GM/DL (3.2-5.2); ALT/SGPT 25 U/L (12-78); BILIRUBIN,DIRECT 0.2 MG/DL (0.0-0.2); BILIRUBIN,TOTAL 0.6 MG/DL (0.2-1.0); BLOOD UREA NITROGEN 13 MG/DL (7-18); CALCIUM LEVEL 8.9 MG/DL (8.5-10.1); CARBON DIOXIDE LEVEL 25 MEQ/L (21-32); CHLORIDE LEVEL 105 MEQ/L (98-107); GLOMERULAR FILTRATION RATE > 60.0 (>60); GLUCOSE, FASTING 114 MG/DL (70-100); LIPASE 109 U/L (73-393); POTASSIUM SERUM 3.9 MEQ/L (3.5-5.1); SODIUM LEVEL 138 MEQ/L (136-145); TOTAL PROTEIN 7.1 GM/DL (6.4-8.2)
[2020-02-27 09:26] LABS: HCG, SERUM QUALITATIVE NEGATIVE (NEGATIVE)
[2020-02-27] MEDS ORDERED: ISOVUE-370 76% 100ML VIAL As Ordered ONE (09:54)
--- NOTE | 2020-02-27 10:27 | REP ---
INDICATION: rlq pain, fever, vomiting. COMPARISON: None TECHNIQUE: Axial contrast-enhanced images from the lung bases to the pubic symphysis using 100 cc Isovue 370 intravenous contrast material. Coronal and sagittal reformations obtained. This CT examination was performed using the following dose reduction techniques: Automated exposure control, adjustment of mA and/or kv according to the patient's size, and the use of iterative reconstruction technique. FINDINGS: Right lower quadrant demonstrates normal terminal ileum, cecum and appendix without evidence for appendicitis. Few mildly prominent pericecal lymph nodes are identified which raise the possibility of mesenteric adenitis. Mild generalized fecal stasis is also suggested. The remainder of the small and large bowel is grossly unremarkable and without obstruction or perforation. Scattered colonic diverticula noted without acute diverticulitis. Liver, spleen, pancreas, bilateral adrenal glands and kidneys are normal. Prior cholecystectomy noted. Pelvis demonstrates normal bladder and age-appropriate uterus/adnexa. No pelvic fluid or ascites. No free air. No retroperitoneal adenopathy. Incidental congenital duplicated IVC identified. Normal aorta and arterial vasculature. Musculoskeletal structures are intact. Lung bases are clear. IMPRESSION: No evidence for appendicitis. Findings raise the possibility for mesenteric adenitis. <Electronically signed by Valentino Weldon > 02/27/20 [id number]
[2020-02-27] MEDS ORDERED: KETOROLAC 30 MG/ML 1ML VIAL IV ONE (10:30)
[2020-02-27] MEDS ORDERED: lisinopriL 5 MG TAB PO ONE (13:00)
[2020-02-27 14:10] VITALS: BP 133/83
[2020-02-27] MEDS ORDERED: LISI-542 PO (14:27)
[2020-02-27] MEDS ORDERED: LISI10TA4 PO (14:27)
== END 2020-02-27 14:34 | disposition home or self-care (01) ==
LOC: M ED 07:45 → EDBD 07:45 → M ED 14:34
DX: I88.0 Nonspecific mesenteric lymphadenitis (principal); I10 Essential (primary) hypertension; R50.9 Fever, unspecified; J02.9 Acute pharyngitis, unspecified; M79.10 Myalgia, unspecified site; R51.9 Headache, unspecified; E11.9 Type 2 diabetes mellitus without complications; K21.9 Gastro-esophageal reflux disease without esophagitis; F41.9 Anxiety disorder, unspecified; F17.210 Nicotine dependence, cigarettes, uncomplicated; Z88.5 Allergy status to narcotic agent; Z79.899 Other long term (current) drug therapy
CPT/HCPCS: 36415; 74177; 80048; 80076; 83605; 83690; 84703; 85025; 87880; 96361; 96374; 96375; 99284; J1885; J2405; Q9967; U0002

== ENCOUNTER → 2020-03-09 | Outpatient (RCR) | payer OTHER ==
[~2020-03-09] MED LIST changes: +LISI-542 PO; +LISI10TA4 PO; +NICO1DIS12 TD; -NICO21DI31 TD
== END ==
LOC: M PT 14:19
PROVIDERS: ATTEND Family Medicine
DX: M54.5 Low back pain (principal)

== ENCOUNTER 2020-03-19 14:06 | Outpatient (RCR) | payer OTHER ==
[2020-03-20] MEDS ORDERED: ZOFR4TAB16 PO (20:55)
== END 2020-04-09 ==
LOC: M PT 14:06
PROVIDERS: ATTEND Family Medicine
DX: M54.41 Lumbago with sciatica, right side (principal)

== ENCOUNTER → 2020-03-20 | Outpatient (REF) | payer OTHER ==
[2020-03-20 13:04] LABS: BASO # 0.1 10^3/uL (0.0-0.2); BASO % 0.7 % (0.0-1.0); EOS # 0.2 10^3/uL (0.0-0.5); EOS % 1.8 % (0.0-3.0); HEMATOCRIT 47.6 % (36.0-47.0); HEMOGLOBIN 15.3 g/dl (12.0-15.5); LYMPH # 3.3 10^3/uL (1.5-5.0); LYMPH % 33.8 % (24.0-44.0); MEAN CORPUSCULAR HEMOGLOBIN 29.4 pg (27.0-33.0); MEAN CORPUSCULAR HGB CONC 32.1 g/dl (32.0-36.5); MEAN CORPUSCULAR VOLUME 91.5 fl (80.0-96.0); MONO # 0.6 10^3/uL (0.0-0.8); MONO % 5.9 % (0.0-5.0); NEUTROPHILS # 5.6 10^3/uL (1.5-8.5); NEUTROPHILS % 57.2 % (36.0-66.0); PLATELET COUNT, AUTOMATED 286 10^3/uL (150-450); WHITE BLOOD COUNT 9.9 10^3/uL (4.0-10.0)
[2020-03-20 13:05] LABS: APPEARANCE, URINE CLEAR (CLEAR); BACTERIA, URINE AUTO NEGATIVE (NEGATIVE); BILIRUBIN, URINE AUTO NEGATIVE (NEGATIVE); BLOOD, URINE BLOOD NEGATIVE (NEGATIVE); COLOR, URINE YELLOW (YELLOW); GLUCOSE, URINE (UA) AUTO NEGATIVE (NEGATIVE); KETONE, URINE AUTO NEGATIVE (NEGATIVE); LEUKOCYTE ESTERASE, URINE AUTO NEGATIVE (NEGATIVE); MUCUS, URINE SMALL (NEGATIVE); NITRITE, URINE AUTO NEGATIVE (NEGATIVE); PROTEIN, URINE AUTO NEGATIVE (NEGATIVE); RBC, URINE AUTO 0 /HPF (0-3); SPECIFIC GRAVITY URINE AUTO 1.015 (1.002-1.035); SQUAMOUS EPITHELIAL CELL UR AU 2 /HPF (0-6); UROBILINOGEN, URINE AUTO 0.2 mg/dL (0.0-2.0); WBC, URINE AUTO 2 /HPF (0-3)
[2020-03-20 13:34] LABS: ALBUMIN 4.1 GM/DL (3.2-5.2); ALT/SGPT 30 U/L (12-78); BILIRUBIN,TOTAL 0.5 MG/DL (0.2-1.0); BLOOD UREA NITROGEN 12 MG/DL (7-18); CALCIUM LEVEL 9.3 MG/DL (8.5-10.1); CARBON DIOXIDE LEVEL 29 MEQ/L (21-32); CHLORIDE LEVEL 104 MEQ/L (98-107); CREATININE FOR GFR 0.82 MG/DL (0.55-1.30); GLOMERULAR FILTRATION RATE > 60.0 (>60); GLUCOSE, FASTING 93 MG/DL (70-100); POTASSIUM SERUM 4.1 MEQ/L (3.5-5.1); SODIUM LEVEL 140 MEQ/L (136-145); TOTAL PROTEIN 7.4 GM/DL (6.4-8.2)
[2020-03-20 13:56] LABS: MONO REFLEX EBV COMP NEGATIVE (NEGATIVE)
[2020-03-21 16:08] LABS: EBV AB TO NUCLEAR ANTIGEN >600.0 U/mL (0.0-17.9); EBV VIRAL CAPSID AG IgG >600.0 U/mL (0.0-17.9); EBV VIRAL CAPSID AG IgM <36.0 U/mL (0.0-35.9)
== END ==
LOC: M SFHCPLAZ 11:33
PROVIDERS: ATTEND Family Medicine
DX: R10.84 Generalized abdominal pain (principal)

== ENCOUNTER 2020-03-23 19:00 | Emergency (ER) | payer OTHER ==
[~2020-03-23] VITALS: Ht 154.9 cm; Wt 89.6 kg
[2020-03-23 19:01] VITALS: BP 146/97
== END 2020-03-23 19:04 | disposition left against medical advice (07) ==
LOC: M ED 19:00
DX: Z53.21 Procedure and treatment not carried out due to patient leaving prior to being seen by health care provider (principal)

== ENCOUNTER → 2020-03-27 | Outpatient (CLI) | payer OTHER ==
[~2020-03-27] MED LIST changes: +ISOVUE-370 76% 100ML VIAL As Ordered ONE
--- NOTE | 2020-03-27 10:21 | REP ---
INDICATION: GENERALIZED ABDOMINAL PAIN. COMPARISON: Abdomen and pelvis CT with IV contrast, without bowel contrast dated 02/27/2020. TECHNIQUE: Abdomen and pelvis CT with IV contrast, without bowel contrast. Scanning is performed during the arterial phase of enhancement. FINDINGS: There is no abdominal aortic aneurysm. There is no abdominal aortic atheroma or stenosis.. The celiac artery, SMA and KARLEY are unremarkable. 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 The right renal arteries are unremarkable. The left renal artery is unremarkable. The iliac and femoral arteries are unremarkable. The visualized lung [place] are unremarkable. The hepatic parenchyma is homogeneous. There are surgical clips in the gallbladder fossa. This is unchanged. The pancreas and spleen are normal size otherwise unremarkable. The adrenals are unremarkable. The kidneys are unremarkable. There is no bowel distention. There is no bowel wall thickening. The terminal ileum is unremarkable. The mesentery is unremarkable. Pelvis: The appendix is unremarkable. The previous pericecal/periappendiceal mesenteric nodes have resolved. There is no ascites or adenopathy. The uterus, adnexa and bladder are unremarkable. IMPRESSION: The abdominal and pelvic vasculature is unremarkable. The previous pericecal/periappendiceal mesenteric nodes have resolved. Cholecystectomy. Otherwise, essentially negative CT of the abdomen and pelvis. <Electronically signed by Morgan Lindquist > 03/27/20 [id number]
== END ==
LOC: M RAD 08:49
PROVIDERS: ATTEND Student in an Organized Health Care Education/Training Program
DX: R10.84 Generalized abdominal pain (principal)
CPT/HCPCS: 74174; Q9967

== ENCOUNTER → 2020-04-07 | Outpatient (REF) | payer OTHER ==
[~2020-04-07] MED LIST changes: -ISOVUE-370 76% 100ML VIAL As Ordered ONE
[2020-04-07 15:45] LABS: HEMATOCRIT 42.5 % (36.0-47.0); HEMOGLOBIN 13.9 g/dl (12.0-15.5); MEAN CORPUSCULAR HGB CONC 32.7 g/dl (32.0-36.5); MEAN CORPUSCULAR VOLUME 91.8 fl (80.0-96.0); PLATELET COUNT, AUTOMATED 235 10^3/uL (150-450); RED BLOOD COUNT 4.63 10^6/uL (4.00-5.40); WHITE BLOOD COUNT 7.8 10^3/uL (4.0-10.0)
[2020-04-07 16:26] LABS: CHOLESTEROL LEVEL 137 MG/DL (<200); CHOLESTEROL RISK RATIO 4.151 (<5); HDL CHOLESTEROL 33 MG/DL (>40); LDL CHOLESTEROL 67 MG/DL (<100); NON-HDL-C 104 MG/DL; TOTAL PROTEIN 7.2 GM/DL (6.4-8.2); TRIGLYCERIDES LEVEL 184 MG/DL (<150)
[2020-04-09 12:35] LABS: ALBUMIN 4.31 GM/DL (3.29-5.55); ALBUMIN % 59.9 % (55.8-66.1); ALPHA-1-GLOBULIN % 4.1 % (2.9-4.9); ALPHA-2-GLOBULINS 0.71 GM/DL (0.42-0.99); ALPHA-2-GLOBULINS % 9.8 % (7.1-11.8); BETA-1-GLOBULINS 0.45 GM/DL (0.28-0.60); BETA-1-GLOBULINS % 6.2 % (4.7-7.2); BETA-2-GLOBULINS 0.37 GM/DL (0.19-0.55); BETA-2-GLOBULINS % 5.1 % (3.2-6.5); GAMMA GLOBULIN % 14.9 % (11.1-18.8); GAMMA GLOBULINS 1.07 GM/DL (0.65-1.58)
[2020-04-09 16:08] LABS: H PYLORI SERUM QUANT IGM <9.0 units (0.0-8.9); TISSUE TRANSGLUTAMINASE IgA <2 U/mL (0-3); TISSUE TRANSGLUTAMINASE IgG 5 U/mL (0-5)
== END ==
LOC: M SFHCPLAZ 13:55
PROVIDERS: ATTEND Family Medicine
DX: R10.84 Generalized abdominal pain (principal); R61 Generalized hyperhidrosis; Z13.1 Encounter for screening for diabetes mellitus; Z13.220 Encounter for screening for lipoid disorders

== ENCOUNTER → 2020-07-29 | Outpatient (CLI) | payer OTHER ==
[~2020-07-29] MED LIST changes: +E-Z-PAQUE 96% w/w SUSP 176GM BTL As Ordered ONE; -LISI-542 PO; +LISI-898 PO; +LISI10TA22 PO; -LISI10TA4 PO
--- NOTE | 2020-07-29 16:40 | REP ---
INDICATION: MIXED IBS. COMPARISON: None TECHNIQUE: This procedure was performed by Carole Alva [facility], under the direct supervision of Dr. Lawrence. Images were reviewed with Dr. Lawrence prior to dictation. Liquid barium was administered and the barium column was followed through the small bowel to the level of the terminal ileum. FINDINGS: The roller print tender film shows no organomegaly or pathological masses. The intestinal gas pattern is unremarkable. There are surgical clips in the right upper quadrant. Small bowel transit time is approximately 40 minutes. During fluoroscopy gentle palpation shows all loops are freely movable and pliable. There is no fixed angulated loops. The small bowel mucosal pattern is normal in course and caliber. There is no transition to suggest a partial small bowel obstruction. The appendix was visualized. Spot filming of the terminal ileum shows it to be unremarkable. IMPRESSION: Unremarkable small bowel follow-through. 0.5 minutes of fluoroscopy time was utilized for this procedure. Some fluoroscopic images are performed with last image hold technology. These images require no additional radiation. <Electronically signed by Carole Alva > 07/29/20 [id number] <Electronically signed by Abel Lawrence > 07/29/20 [id number]
== END ==
LOC: M RAD 08:34
PROVIDERS: ATTEND Internal Medicine Gastroenterology
DX: K58.2 Mixed irritable bowel syndrome (principal)

== ENCOUNTER 2020-09-29 11:34 | Day surgery (SDC) | payer OTHER ==
[~2020-09-29] VITALS: Ht 154.9 cm; Wt 90.6 kg
[~2020-09-29 11:34] MED LIST changes: +ACET1TAB55; -E-Z-PAQUE 96% w/w SUSP 176GM BTL As Ordered ONE; +NS 1,000 ML IV ONE; +OMEP20TA2 PO; -OMEP20TA9 PO; +OMEP40CA4 PO; -OMEP40CA97 PO
[2020-09-29] MEDS ORDERED: fentaNYL 100 MCG/2 ML INJECTION (J3010) As Ordered ONE (12:47)
[2020-09-29] MEDS ORDERED: propofoL 200 MG/20 ML VIAL As Ordered ONE (12:47)
[2020-09-29] MEDS ORDERED: LIDOCAINE 2% 100MG/5ML SDV (FOR ANES.) As Ordered ONE (12:47)
--- NOTE | 2020-09-29 13:11 | ROOR ---
Patient Name: Jeannette Franklin Procedure Date: 09/29/2020 12:57 PM Date of : 1995 Age: 25 Room: [facility] Gender: Female Note Status: Finalized Procedure: Upper GI endoscopy Indications: Nausea Providers: Jonathan Espinoza MD Referring MD: Dandy Daley Do, [facility] [place]ing Provider: Medicines: Monitored Anesthesia Care Complications: No immediate complications. Procedure: Pre-Anesthesia Assessment: - The heart rate, respiratory rate, oxygen saturations, blood pressure, adequacy of pulmonary ventilation, and response to care were monitored throughout the procedure. The Endoscope was introduced through the mouth, and advanced to the second part of duodenum. The upper GI endoscopy was accomplished without difficulty. The patient tolerated the procedure well. Findings: Diffuse mild inflammation was found in the gastric body. Biopsies were taken with a cold forceps for histology. The exam of the stomach was otherwise normal. The examined esophagus was normal. The examined duodenum was normal. Impression: - Mild gastritis. Biopsied. - Normal esophagus. - Normal examined duodenum. Recommendation: - No ibuprofen, naproxen, or other non-steroidal anti-inflammatory drugs. - Telephone endoscopist for pathology results in 2 weeks. - Continue present medications. Procedure Code(s): --- Professional --- 80273, Esophagogastroduodenoscopy, flexible, transoral; with biopsy, single or multiple Diagnosis Code(s): --- Professional --- R11.0, Nausea K29.70, Gastritis, unspecified, without bleeding CPT copyright 2019 [employer]. All rights reserved. The codes documented in this report are preliminary and upon territory development manager review may be revised to meet current compliance requirements. Jonathan Espinoza MD Jonathan Espinoza MD 09/29/2020 1:10:48 PM Electronically signed by Jonathan Espinoza MD Number of Addenda: 0 Note Initiated On: 09/29/2020 12:57 PM Estimated Blood Loss: Estimated blood loss: none.
--- NOTE | 2020-09-29 13:29 | ROOR ---
Patient Name: Jeannette Franklin Procedure Date: 09/29/2020 12:58 PM Date of : 1995 Age: 25 Room: [facility] Gender: Female Note Status: Finalized Procedure: Colonoscopy Indications: Mixed irritable bowel syndrome Providers: Jonathan Espinoza MD Referring MD: Dandy Daley Do, [facility] [place] Requesting Provider: Medicines: Monitored Anesthesia Care Complications: No immediate complications. Procedure: Pre-Anesthesia Assessment: - The heart rate, respiratory rate, oxygen saturations, blood pressure, adequacy of pulmonary ventilation, and response to care were monitored throughout the procedure. The Colonoscope was introduced through the anus and advanced to 10 cm into the ileum. The colonoscopy was performed without difficulty. The patient tolerated the procedure well. The quality of the bowel preparation was good. Findings: The perianal and digital rectal examinations were normal. Two sessile polyps were found in the recto-sigmoid colon and sigmoid colon. The polyps were 4 to 5 mm in size. These polyps were removed with a cold snare. Resection and retrieval were complete. Small Internal Hemorrhoids. The exam was otherwise without abnormality on direct and retroflexion views. Biopsies for histology were taken with a cold forceps for evaluation of microscopic colitis. Impression: - Two 4 to 5 mm polyps at the recto-sigmoid colon and in the sigmoid colon, removed with a cold snare. Resected and retrieved. - Small Internal Hemorrhoids. - The colon and terminal ileum examinations are otherwise normal on direct and retroflexion views. - Biopsies were taken with a cold forceps for evaluation of microscopic colitis. - (Irritable Bowel Syndrome/IBS suspected.) Recommendation: - Use fiber, for example Citrucel, Fibercon, Konsyl or Metamucil. - Use Bentyl (dicyclomine) 10 mg PO Q 4-6 hrs PRN 30 min AC. Procedure Code(s): --- Professional --- 42442, Colonoscopy, flexible; with removal of tumor(s), polyp(s), or other lesion(s) by snare technique 00840, 59, Colonoscopy, flexible; with biopsy, single or multiple Diagnosis Code(s): --- Professional --- K58.2, Mixed irritable bowel syndrome K63.5, Polyp of colon CPT copyright 2019 [employer]. All rights reserved. The codes documented in this report are preliminary and upon community engagement manager review may be revised to meet current compliance requirements. Jonathan Espinoza MD Jonathan Espinoza MD 09/29/2020 1:29:26 PM Electronically signed by oJnathan Espinoza MD Number of Addenda: 0 Note Initiated On: 09/29/2020 12:58 PM Estimated Blood Loss: Estimated blood loss: none.
[2020-09-29 14:10] VITALS: BP 144/94
== END 2020-09-29 14:11 | disposition home or self-care (01) ==
LOC: M OPP 11:34
PROVIDERS: ATTEND Internal Medicine Gastroenterology
DX: K63.5 Polyp of colon (principal); K64.8 Other hemorrhoids; K58.2 Mixed irritable bowel syndrome; K29.70 Gastritis, unspecified, without bleeding; R11.0 Nausea; F17.210 Nicotine dependence, cigarettes, uncomplicated; Z79.891 Long term (current) use of opiate analgesic; Z79.899 Other long term (current) drug therapy; Z91.048 Other nonmedicinal substance allergy status; Z80.3 Family history of malignant neoplasm of breast
CPT/HCPCS: 43239; 45380; 45385; 88305; J3010

== ENCOUNTER → 2021-01-07 | Outpatient (REF) | payer OTHER ==
[~2021-01-07] MED LIST changes: -NS 1,000 ML IV ONE
[2021-01-07 19:07] LABS: GC DNA AMPLIFICATION NEGATIVE (NEGATIVE)
== END ==
LOC: M SFHCWAGY 16:41
PROVIDERS: ATTEND Nurse Practitioner Women's Health
DX: Z11.3 Encounter for screening for infections with a predominantly sexual mode of transmission (principal)

== ENCOUNTER → 2021-05-18 | Outpatient (CLI) | payer OTHER ==
[~2021-05-18] MED LIST changes: -CITA40TA4 PO; +CITA40TA7 PO; +FLUO-96 PO; -FLUO20CA20 PO; +ISOVUE-370 76% 100ML VIAL As Ordered ONE; -LISI-898 PO; +LISI5TAB11 PO; -PHEN30CA2 PO; +PHEN30CA21 PO
== END ==
LOC: M RAD 17:12
PROVIDERS: ATTEND Ophthalmology
DX: H47.10 Unspecified papilledema (principal)
CPT/HCPCS: 70470; Q9967

== ENCOUNTER → 2021-08-11 | Outpatient (CLI) | payer OTHER ==
[~2021-08-11] MED LIST changes: +AMIT25TA17 PO; +DICY1CAP8 PO; -ISOVUE-370 76% 100ML VIAL As Ordered ONE; +LAMO100T80 PO
[2021-08-11 09:56] LABS: BASO # 0.1 10^3/uL (0.0-0.2); BASO % 0.4 % (0.0-1.0); EOS # 0.2 10^3/uL (0.0-0.5); EOS % 2.1 % (0.0-3.0); HEMATOCRIT 42.4 % (36.0-47.0); HEMOGLOBIN 14.5 g/dl (12.0-15.5); LYMPH % 26.6 % (24.0-44.0); MEAN CORPUSCULAR HEMOGLOBIN 30.3 pg (27.0-33.0); MEAN CORPUSCULAR HGB CONC 34.2 g/dl (32.0-36.5); MEAN CORPUSCULAR VOLUME 88.5 fl (80.0-96.0); MONO # 0.7 10^3/uL (0.0-0.8); MONO % 6.6 % (2.0-8.0); NEUTROPHILS # 7.2 10^3/uL (1.5-8.5); NEUTROPHILS % 63.5 % (36.0-66.0); PLATELET COUNT, AUTOMATED 242 10^3/uL (150-450); RED BLOOD COUNT 4.79 10^6/uL (4.00-5.40); WHITE BLOOD COUNT 11.3 10^3/uL (4.0-10.0)
[2021-08-11 10:17] LABS: INR 0.95; PARTIAL THROMBOPLASTIN TIME 28.2 SECONDS (25.9-37.0); PROTHROMBIN TIME 13.1 SECONDS (12.7-14.5)
== END ==
LOC: M LAB 09:17
PROVIDERS: ATTEND Psychiatry & Neurology Neurology
DX: H47.12 Papilledema associated with decreased ocular pressure (principal)

== ENCOUNTER → 2021-08-16 | Outpatient (CLI) | payer OTHER ==
[2021-08-16 12:16] LABS: APPEARANCE, CSF CLEAR (CLEAR); COLOR, CSF COLORLESS (COLORLESS); CSF TUBE# CELL CNT TUBE 1
[2021-08-16 12:23] LABS: CSF TUBE# GLU TUBE 1; CSF TUBE# TP TUBE 1; GLUCOSE CSF 83 MG/DL (40-75); TOTAL PROTEIN,CSF 30 MG/DL (15-45)
[2021-08-16 13:30] VITALS: BP 134/82
== END ==
LOC: M IRPRO 09:50
PROVIDERS: ATTEND Psychiatry & Neurology Neurology
DX: H47.12 Papilledema associated with decreased ocular pressure (principal)

== ENCOUNTER 2021-11-07 09:11 | Emergency (ER) | payer OTHER ==
[~2021-11-07] VITALS: Ht 154.9 cm; Wt 109.1 kg
[~2021-11-07 09:11] MED LIST changes: +ETON68IM SC; -NEXP1IMP SC
[2021-11-07] MEDS ORDERED: DICY10CA13 PO (09:25)
[2021-11-07] MEDS ORDERED: HYDR-643 PO (09:25)
[2021-11-07 09:50] LABS: HEMATOCRIT 43.6 % (36.0-47.0); HEMOGLOBIN 15.2 g/dl (12.0-15.5); MEAN CORPUSCULAR HEMOGLOBIN 29.9 pg (27.0-33.0); MEAN CORPUSCULAR HGB CONC 34.9 g/dl (32.0-36.5); MEAN CORPUSCULAR VOLUME 85.8 fl (80.0-96.0); PLATELET COUNT, AUTOMATED 243 10^3/uL (150-450); RED BLOOD COUNT 5.08 10^6/uL (4.00-5.40); WHITE BLOOD COUNT 9.7 10^3/uL (4.0-10.0)
[2021-11-07 10:09] LABS: HCG, SERUM QUALITATIVE NEGATIVE (NEGATIVE)
[2021-11-07 10:25] LABS: ACETAMINOPHEN LEVEL < 2.0 UG/ML (10.0-30.0); ALBUMIN 3.9 GM/DL (3.2-5.2); ALT/SGPT 25 U/L (12-78); BILIRUBIN,DIRECT 0.2 MG/DL (0.0-0.2); BILIRUBIN,TOTAL 0.8 MG/DL (0.2-1.0); BLOOD UREA NITROGEN 11 MG/DL (7-18); CALCIUM LEVEL 9.2 MG/DL (8.5-10.1); CARBON DIOXIDE LEVEL 21 MEQ/L (21-32); CHLORIDE LEVEL 110 MEQ/L (98-107); CREATININE FOR GFR 0.78 MG/DL (0.55-1.30); ETHYL ALCOHOL (ETHANOL) < 0.003 % (0.000-0.010); GLOMERULAR FILTRATION RATE > 60.0 (>60); GLUCOSE, FASTING 161 MG/DL (70-100); POTASSIUM SERUM 3.5 MEQ/L (3.5-5.1); SALICYLATE LEVEL 3.6 MG/DL (5.0-30.0); SODIUM LEVEL 141 MEQ/L (136-145); TOTAL PROTEIN 7.1 GM/DL (6.4-8.2)
[2021-11-07 10:26] LABS: RSV AMPLIFICATION NEGATIVE (NEGATIVE)
[2021-11-07] MEDS ORDERED: LAMO25TA4 PO (10:42)
[2021-11-07 10:43] LABS: AMPHETAMINES LEVEL URINE NEGATIVE (NEGATIVE); BARBITURATES URINE NEGATIVE (NEGATIVE); BENZODIAZEPINES URINE NEGATIVE (NEGATIVE); CANNABINOIDS URINE POSITIVE (NEGATIVE); COCAINE METABOLITE URINE NEGATIVE (NEGATIVE); METHADONE URINE NEGATIVE (NEGATIVE); OPIATES URINE NEGATIVE (NEGATIVE); PHENCYCLIDINE URINE NEGATIVE (NEGATIVE)
[2021-11-07] MEDS ORDERED: ACETAMINOPHEN 325 MG TAB PO ONE (14:15)
[2021-11-07 16:47] VITALS: BP 142/92
== END 2021-11-07 16:52 | disposition home or self-care (01) ==
LOC: M ED 09:11
DX: F43.20 Adjustment disorder, unspecified (principal); F32.A Depression, unspecified; F41.9 Anxiety disorder, unspecified; E28.2 Polycystic ovarian syndrome; K21.9 Gastro-esophageal reflux disease without esophagitis; Z88.8 Allergy status to other drugs, medicaments and biological substances; Z79.899 Other long term (current) drug therapy

== ENCOUNTER → 2021-11-25 | Outpatient (CLI) | payer OTHER ==
[~2021-11-25] MED LIST changes: +DICY10CA13 PO; +HYDR-643 PO; +LAMO25TA4 PO
== END ==
LOC: M EKG 09:20
PROVIDERS: ATTEND Nurse Practitioner Psychiatric/Mental Health
DX: F90.0 Attention-deficit hyperactivity disorder, predominantly inattentive type (principal)

== ENCOUNTER → 2021-11-25 | Outpatient (CLI) | payer OTHER ==
[2021-11-25 11:29] LABS: BASO # 0.1 10^3/uL (0.0-0.2); BASO % 0.5 % (0.0-1.0); EOS # 0.2 10^3/uL (0.0-0.5); EOS % 1.9 % (0.0-3.0); HEMATOCRIT 43.9 % (36.0-47.0); HEMOGLOBIN 14.5 g/dl (12.0-15.5); LYMPH # 3.1 10^3/uL (1.5-5.0); LYMPH % 30.2 % (24.0-44.0); MEAN CORPUSCULAR HEMOGLOBIN 28.9 pg (27.0-33.0); MEAN CORPUSCULAR VOLUME 87.6 fl (80.0-96.0); MONO # 0.7 10^3/uL (0.0-0.8); MONO % 6.3 % (2.0-8.0); NEUTROPHILS # 6.3 10^3/uL (1.5-8.5); NEUTROPHILS % 60.3 % (36.0-66.0); PLATELET COUNT, AUTOMATED 269 10^3/uL (150-450); RED BLOOD COUNT 5.01 10^6/uL (4.00-5.40); WHITE BLOOD COUNT 10.4 10^3/uL (4.0-10.0)
[2021-11-25 12:10] LABS: ALBUMIN 3.5 GM/DL (3.2-5.2); ALT/SGPT 25 U/L (12-78); BILIRUBIN,TOTAL 0.2 MG/DL (0.2-1.0); BLOOD UREA NITROGEN 12 MG/DL (7-18); CALCIUM LEVEL 8.7 MG/DL (8.5-10.1); CARBON DIOXIDE LEVEL 22 MEQ/L (21-32); CHLORIDE LEVEL 112 MEQ/L (98-107); CREATININE FOR GFR 0.63 MG/DL (0.55-1.30); GLOMERULAR FILTRATION RATE > 60.0 (>60); GLUCOSE, FASTING 143 MG/DL (70-100); SODIUM LEVEL 140 MEQ/L (136-145); TOTAL PROTEIN 6.7 GM/DL (6.4-8.2)
== END ==
LOC: M LAB 09:18
PROVIDERS: ATTEND Psychiatry & Neurology Neurology
DX: R51.9 Headache, unspecified (principal)

== ENCOUNTER → 2021-12-02 | Outpatient (CLI) | payer OTHER ==
[2021-12-02 19:01] LABS: HEMOGLOBIN A1c 5.7 %
== END ==
LOC: M PLALAB 14:46
DX: R73.03 Prediabetes (principal)

== ENCOUNTER → 2022-02-04 | Outpatient (CLI) | payer OTHER ==
[2022-02-04 19:14] LABS: BASO % 0.3 % (0.0-1.0); EOS # 0.1 10^3/uL (0.0-0.5); EOS % 1.1 % (0.0-3.0); LYMPH # 3.5 10^3/uL (1.5-5.0); LYMPH % 30.1 % (24.0-44.0); MEAN CORPUSCULAR HEMOGLOBIN 29.8 pg (27.0-33.0); MEAN CORPUSCULAR HGB CONC 33.3 g/dl (32.0-36.5); MEAN CORPUSCULAR VOLUME 89.4 fl (80.0-96.0); MONO # 0.6 10^3/uL (0.0-0.8); NEUTROPHILS # 7.2 10^3/uL (1.5-8.5); NEUTROPHILS % 62.9 % (36.0-66.0); PLATELET COUNT, AUTOMATED 278 10^3/uL (150-450); WHITE BLOOD COUNT 11.5 10^3/uL (4.0-10.0)
[2022-02-04 20:05] LABS: BLOOD UREA NITROGEN 10 MG/DL (7-18); CALCIUM LEVEL 8.7 MG/DL (8.5-10.1); CARBON DIOXIDE LEVEL 23 MEQ/L (21-32); CHLORIDE LEVEL 114 MEQ/L (98-107); CREATININE FOR GFR 0.79 MG/DL (0.55-1.30); GLOMERULAR FILTRATION RATE > 60.0 (>60); GLUCOSE, FASTING 124 MG/DL (70-100); POTASSIUM SERUM 4.2 MEQ/L (3.5-5.1); SODIUM LEVEL 141 MEQ/L (136-145)
== END ==
LOC: M LAB 18:15
PROVIDERS: ATTEND Neurological Surgery
DX: G93.2 Benign intracranial hypertension (principal)

== ENCOUNTER 2022-02-07 01:04 | Emergency (ER) | payer OTHER ==
[~2022-02-07] VITALS: Ht 154.9 cm; Wt 96.8 kg
[2022-02-07 01:47] LABS: BASO % 0.3 % (0.0-1.0); EOS # 0.2 10^3/uL (0.0-0.5); EOS % 1.1 % (0.0-3.0); HEMATOCRIT 43.3 % (36.0-47.0); LYMPH # 3.8 10^3/uL (1.5-5.0); LYMPH % 28.4 % (24.0-44.0); MEAN CORPUSCULAR HEMOGLOBIN 29.7 pg (27.0-33.0); MEAN CORPUSCULAR HGB CONC 32.3 g/dl (32.0-36.5); MEAN CORPUSCULAR VOLUME 91.9 fl (80.0-96.0); MONO # 0.8 10^3/uL (0.0-0.8); MONO % 5.9 % (2.0-8.0); NEUTROPHILS # 8.5 10^3/uL (1.5-8.5); NEUTROPHILS % 63.7 % (36.0-66.0); PLATELET COUNT, AUTOMATED 244 10^3/uL (150-450); RED BLOOD COUNT 4.71 10^6/uL (4.00-5.40); WHITE BLOOD COUNT 13.3 10^3/uL (4.0-10.0)
[2022-02-07 02:21] LABS: BLOOD UREA NITROGEN 14 MG/DL (7-18); CARBON DIOXIDE LEVEL 24 MEQ/L (21-32); CHLORIDE LEVEL 111 MEQ/L (98-107); CREATININE FOR GFR 0.83 MG/DL (0.55-1.30); GLOMERULAR FILTRATION RATE > 60.0 (>60); GLUCOSE, FASTING 109 MG/DL (70-100); POTASSIUM SERUM 3.8 MEQ/L (3.5-5.1); SODIUM LEVEL 141 MEQ/L (136-145)
[2022-02-07 02:22] LABS: CK-MB VALUE MASS < 1.0 NG/ML (<3.6); CPK CREATINE PHOSPHOKINASE 100 U/L (26-192)
[2022-02-07 05:48] VITALS: BP 138/85
== END 2022-02-07 10:30 | disposition left against medical advice (07) ==
LOC: M ED 01:04
DX: Z53.21 Procedure and treatment not carried out due to patient leaving prior to being seen by health care provider (principal)

== ENCOUNTER → 2022-08-01 | Outpatient (CLI) | payer OTHER ==
[2022-08-01 17:42] LABS: BLOOD UREA NITROGEN 11 MG/DL (9-23); CALCIUM LEVEL 8.8 MG/DL (8.5-10.1); CARBON DIOXIDE LEVEL 25 MMOL/L (20-31); CHLORIDE LEVEL 109 MMOL/L (98-107); CREATININE FOR GFR 0.74 MG/DL (0.55-1.30); GLOMERULAR FILTRATION RATE > 60.0 (>60); GLUCOSE, FASTING 81 MG/DL (60-100); POTASSIUM SERUM 4.2 MMOL/L (3.5-5.1); SODIUM LEVEL 142 MMOL/L (136-145)
[2022-08-01 18:06] LABS: HEMOGLOBIN A1c 4.9 % (4.0-6.0)
== END ==
LOC: M PLALAB 15:30
PROVIDERS: ATTEND Student in an Organized Health Care Education/Training Program
DX: R73.03 Prediabetes (principal)

== ENCOUNTER → 2023-05-22 | Outpatient (CLI) | payer OTHER ==
[~2023-05-22] MED LIST changes: -AMIT25TA17 PO; +AMIT25TA19 PO; +DICY-61 PO; -DICY10CA13 PO; +RISP-105 PO; -RISP-8 PO
[2023-05-22 16:42] LABS: BASO # 0.1 10^3/uL (0.0-0.2); BASO % 0.6 % (0.0-1.0); EOS # 0.2 10^3/uL (0.0-0.5); EOS % 1.6 % (0.0-3.0); HEMATOCRIT 45.4 % (36.0-47.0); HEMOGLOBIN 15.4 g/dl (12.0-15.5); LYMPH # 2.8 10^3/uL (1.5-5.0); LYMPH % 27.1 % (24.0-44.0); MEAN CORPUSCULAR HEMOGLOBIN 31.3 pg (27.0-33.0); MEAN CORPUSCULAR HGB CONC 33.9 g/dl (32.0-36.5); MEAN CORPUSCULAR VOLUME 92.3 fl (80.0-96.0); MONO # 0.5 10^3/uL (0.0-0.8); MONO % 4.7 % (2.0-8.0); NEUTROPHILS # 6.7 10^3/uL (1.5-8.5); NEUTROPHILS % 64.9 % (36.0-66.0); PLATELET COUNT, AUTOMATED 216 10^3/uL (150-450); RED BLOOD COUNT 4.92 10^6/uL (4.00-5.40); WHITE BLOOD COUNT 10.4 10^3/uL (4.0-10.0)
[2023-05-22 17:40] LABS: HEMOGLOBIN A1c 5.2 % (4.0-6.0)
== END ==
LOC: M PLALAB 14:37
PROVIDERS: ATTEND Student in an Organized Health Care Education/Training Program
DX: R06.02 Shortness of breath (principal); R73.03 Prediabetes

== ENCOUNTER → 2023-06-02 | Outpatient (CLI) | payer OTHER | LOC: M WHC 07:20 | PROVIDERS: ATTEND Student in an Organized Health Care Education/Training Program | DX: E28.2 Polycystic ovarian syndrome (principal) ==

== ENCOUNTER → 2023-06-28 | Outpatient (CLI) | payer OTHER ==
[~2023-06-28] MED LIST changes: +RISP-106 PO; -RISP-9 PO
== END ==
LOC: M CARPUL 12:19
PROVIDERS: ATTEND Student in an Organized Health Care Education/Training Program
DX: R06.02 Shortness of breath (principal)

== ENCOUNTER 2023-10-01 22:43 | Emergency (ER) | payer OTHER ==
[~2023-10-01] VITALS: Ht 154.9 cm; Wt 85.7 kg
[2023-10-01] MEDS: IBUPROFEN 800 MG TAB PO ONE (23:59)
[2023-10-02 01:35] VITALS: BP 135/98; TEMP 98.5; O2SAT 99
== END 2023-10-02 01:39 | disposition home or self-care (01) ==
LOC: M ED 22:43
DX: S52.621A Torus fracture of lower end of right ulna, initial encounter for closed fracture (principal); Y92.512 Supermarket, store or market as the place of occurrence of the external cause; Y93.9 Activity, unspecified; Y99.9 Unspecified external cause status; W18.41XA Slipping, tripping and stumbling without falling due to stepping on object, initial encounter; I10 Essential (primary) hypertension; F12.10 Cannabis abuse, uncomplicated; F90.9 Attention-deficit hyperactivity disorder, unspecified type; F43.10 Post-traumatic stress disorder, unspecified; Z88.8 Allergy status to other drugs, medicaments and biological substances; Z79.899 Other long term (current) drug therapy; Z79.2 Long term (current) use of antibiotics

== ENCOUNTER → 2023-10-17 | Outpatient (CLI) | payer OTHER | LOC: M PLAIMG 11:53 | PROVIDERS: ATTEND Student in an Organized Health Care Education/Training Program | DX: M25.531 Pain in right wrist (principal) ==

== ENCOUNTER 2023-12-15 12:00 | Inpatient (IN) | payer MEDICAID, OTHER ==
[~2023-12-15] VITALS: Ht 154.9 cm; Wt 77.3 kg
[2023-12-15] MEDS ORDERED: TOPI200T7 PO (12:25)
[2023-12-15] MEDS ORDERED: STRA18CA PO (12:25)
[2023-12-15] MEDS ORDERED: SPIR-10 PO (12:26)
[2023-12-15] MEDS ORDERED: VITA500C24 PO (12:31)
[2023-12-15] MEDS ORDERED: VITA-158 PO (12:31)
[2023-12-15 13:04] LABS: HEMATOCRIT 42.9 % (36.0-47.0); HEMOGLOBIN 14.7 g/dl (12.0-15.5); MEAN CORPUSCULAR HEMOGLOBIN 31.7 pg (27.0-33.0); MEAN CORPUSCULAR HGB CONC 34.3 g/dl (32.0-36.5); MEAN CORPUSCULAR VOLUME 92.5 fl (80.0-96.0); PLATELET COUNT, AUTOMATED 260 10^3/uL (150-450); RED BLOOD COUNT 4.64 10^6/uL (4.00-5.40); WHITE BLOOD COUNT 10.7 10^3/uL (4.0-10.0)
[2023-12-15 13:34] LABS: ETHYL ALCOHOL (ETHANOL) < 0.003 % (0.000-0.010)
[2023-12-15 13:36] LABS: ALBUMIN 3.9 G/DL (3.2-5.2); ALKALINE PHOSPHATASE 84 U/L (46-116); ALT/SGPT 15 U/L (7.0-40); AST/SGOT < 8 U/L (<34); BILIRUBIN,DIRECT 0.1 MG/DL (<0.4); BILIRUBIN,TOTAL 0.4 MG/DL (0.3-1.2); BLOOD UREA NITROGEN 8 MG/DL (9-23); CALCIUM LEVEL 8.9 MG/DL (8.5-10.1); CARBON DIOXIDE LEVEL 23 MMOL/L (20-31); CHLORIDE LEVEL 112 MMOL/L (98-107); CREATININE FOR GFR 0.68 MG/DL (0.55-1.30); GLOMERULAR FILTRATION RATE > 60.0 (>60); GLUCOSE, FASTING 95 MG/DL (60-100); POTASSIUM SERUM 3.5 MMOL/L (3.5-5.1); SALICYLATE LEVEL < 3.0 MG/DL (<30); SODIUM LEVEL 139 MMOL/L (136-145); TOTAL PROTEIN 6.4 G/DL (5.7-8.2)
[2023-12-15 13:38] LABS: THYROID STIMULATING HORMONE 0.646 uIU/ML (0.55-4.78)
[2023-12-15 13:42] LABS: HCG, SERUM QUALITATIVE NEGATIVE (NEGATIVE)
[2023-12-15 13:44] LABS: AMPHETAMINES LEVEL URINE NEGATIVE (NEGATIVE); BARBITURATES URINE NEGATIVE (NEGATIVE); BENZODIAZEPINES URINE NEGATIVE (NEGATIVE); COCAINE METABOLITE URINE NEGATIVE (NEGATIVE); METHADONE URINE NEGATIVE (NEGATIVE); OPIATES URINE NEGATIVE (NEGATIVE); PHENCYCLIDINE URINE NEGATIVE (NEGATIVE)
[2023-12-15 13:46] LABS: CANNABINOIDS URINE POSITIVE (NEGATIVE)
[2023-12-15] MEDS ORDERED: MOM 30ML SUSPENSION UDC PO PRN (18:20)
[2023-12-15] MEDS ORDERED: DICYCLOMINE 10 MG CAP PO PRN (18:20)
[2023-12-15] MEDS ORDERED: MAALOX 30 ML SUSP *UDC PO PRN (18:20)
[2023-12-15] MEDS ORDERED: IBUPROFEN 400MG TAB PO PRN (18:20)
[2023-12-15] MEDS ORDERED: LAMO150T3 PO (18:40)
[2023-12-15] MEDS ORDERED: TOPI100T9 PO (18:40)
[2023-12-15] MEDS ORDERED: HOME MED LIST COMPLETE! XX SCH (18:45)
[2023-12-15 20:44] VITALS: BP 125/82; TEMP 97.8; O2SAT 99
[2023-12-15] MEDS: ASCORBIC ACID 500 MG TAB PO SCH (21:00)
[2023-12-15] MEDS: TOPIRAMATE (TopAMAX) 100 MG TAB PO SCH (21:00)
[2023-12-15] MEDS: AMITRIPTYLINE 25MG TABLET PO SCH (21:00)
[2023-12-15] MEDS: OMEPRAZOLE 20MG CAP PO SCH (21:00)
[2023-12-16] MEDS: ASCORBIC ACID 500 MG TAB PO SCH (08:38)
[2023-12-16] MEDS: lamoTRIgine 100MG TAB PO SCH (08:39)
[2023-12-16] MEDS: PILL CUTTER 1 EACH XX PRN (08:39)
[2023-12-16] MEDS: SPIRONOLACTONE 25 MG TAB PO SCH (08:39)
[2023-12-16] MEDS ORDERED: ALBUTEROL 90 MCG/ACT 8GM HFA INHALER INH PRN (13:35)
[2023-12-16 16:29] VITALS: BP 137/63; TEMP 97.6; O2SAT 100
[2023-12-16] MEDS: ACETAMINOPHEN TAB 650MG DOSE (2X325MG) PO PRN (20:58)
[2023-12-16] MEDS: PRAZOSIN 1 MG CAP PO SCH (21:00)
[2023-12-16] MEDS: traZODone 50 MG TAB PO PRN (23:35)
[2023-12-17] MEDS: UNRESOLVED PATIENT OWN MED ORDER XX SCH ×2 (00:01→21:00)
[2023-12-17 06:20] VITALS: BP 118/65; TEMP 97.6; O2SAT 100
[2023-12-17] MEDS: ATOMOXETINE 18 MG PO SCH (10:03)
[2023-12-17 17:01] VITALS: BP 131/62; TEMP 97.8; O2SAT 98
[2023-12-18 06:36] VITALS: BP 141/61; TEMP 97.6; O2SAT 97
[2023-12-18 08:51] VITALS: BP 125/70
[2023-12-18 17:25] VITALS: BP 129/64; TEMP 96.9; O2SAT 98
[2023-12-18 22:25] VITALS: BP 125/85
[2023-12-19 06:26] VITALS: BP 134/73; TEMP 98.1; O2SAT 100
[2023-12-19] MEDS ORDERED: LAMO100T80 PO (08:52)
[2023-12-19] MEDS ORDERED: PRAZ1CAP PO (08:52)
== END 2023-12-19 11:20 | disposition home or self-care (01) | DRG 751 ==
LOC: M ED 12:00 → M ED INP 18:19 → M PSY 20:07
PROVIDERS: ADMIT Psychiatry & Neurology Psychiatry; ATTEND Psychiatry & Neurology Psychiatry
DX: F33.2 Major depressive disorder, recurrent severe without psychotic features (principal); R45.851 Suicidal ideations; F43.10 Post-traumatic stress disorder, unspecified; F60.3 Borderline personality disorder; F17.290 Nicotine dependence, other tobacco product, uncomplicated; K21.9 Gastro-esophageal reflux disease without esophagitis; E66.9 Obesity, unspecified; Z91.51 Personal history of suicidal behavior; Z62.810 Personal history of physical and sexual abuse in childhood; Z68.32 Body mass index [BMI] 32.0-32.9, adult; Z79.899 Other long term (current) drug therapy; Z88.8 Allergy status to other drugs, medicaments and biological substances; Z91.52 Personal history of nonsuicidal self-harm

== ENCOUNTER 2024-07-02 14:49 | Emergency (ER) | payer MEDICAID, OTHER ==
[~2024-07-02] VITALS: Ht 154.9 cm; Wt 81.0 kg
[~2024-07-02 14:49] MED LIST changes: +LAMO150T3 PO; +OMEP-611 PO; -OMEP20TA2 PO; +SPIR-10 PO; +STRA18CA PO; +TOPI100T9 PO; +TOPI200T7 PO; +VITA-158 PO; +VITA500C24 PO
[2024-07-02] MEDS ORDERED: SUMA50TA2 PO (15:02)
[2024-07-02] MEDS: METOCLOPRAMIDE INJ 10MG/2ML VIAL IV ONE (19:54)
[2024-07-02] MEDS: KETOROLAC 30 MG/ML 1ML VIAL IV ONE (19:54)
[2024-07-02] MEDS: diphenhydrAMINE 50MG/ML VIAL IV ONE (19:56)
[2024-07-02] MEDS: NS 500 ML IV ONE (20:00)
[2024-07-02] MEDS: dexAMETHasone 20MG/5ML VIAL IV ONE (20:40)
[2024-07-02 21:20] VITALS: BP 133/85; TEMP 97.7; O2SAT 96
== END 2024-07-02 21:22 | disposition home or self-care (01) ==
LOC: M ED 14:49 → EDBD 14:49 → M ED 21:22
DX: G43.909 Migraine, unspecified, not intractable, without status migrainosus (principal); Z88.8 Allergy status to other drugs, medicaments and biological substances; Z79.899 Other long term (current) drug therapy
CPT/HCPCS: 96361; 96374; 96375; 99284; J1100; J1200; J1885; J2765

== ENCOUNTER → 2024-12-16 | Outpatient (REF) | payer OTHER ==
[~2024-12-16] MED LIST changes: -AMBI12.52 PO; -IBUP-1022 PO; +IBUP600T42 PO; +LAMO-18 PO; -LAMO25TA4 PO; -PROZ20CA11 PO; +PROZ20CA12 PO; +SUMA50TA2 PO; +TOPI-14 PO; +TOPI-257 PO; -TOPI100T9 PO; -TOPI200T7 PO; +ZOLP12.561 PO
[2024-12-18 13:24] LABS: HPV APTIMA Not Detected (Not Detected)
== END ==
LOC: M SFHCWAGY 12:45
PROVIDERS: ATTEND Obstetrics & Gynecology
DX: Z12.4 Encounter for screening for malignant neoplasm of cervix (principal); Z77.9 Other contact with and (suspected) exposures hazardous to health; R87.615 Unsatisfactory cytologic smear of cervix

== ENCOUNTER → 2024-12-20 | Outpatient (REF) | payer OTHER | LOC: M SFHCPLAZ 16:15 | PROVIDERS: ATTEND Family Medicine | DX: Z53.8 Procedure and treatment not carried out for other reasons (principal) ==

== ENCOUNTER 2025-01-16 13:09 | Emergency (ER) | payer OTHER ==
[~2025-01-16] VITALS: Ht 154.9 cm; Wt 83.0 kg
[2025-01-16] MEDS ORDERED: ATOM18CA PO (13:24)
[2025-01-16] MEDS: CETIRIZINE 10 MG TAB PO ONE (14:38)
[2025-01-16] MEDS: predniSONE 20 MG TAB PO ONE (14:38)
[2025-01-16] MEDS: IPRATROPIUM 0.5 MG/ALBUTEROL 2.5 MG INH SOL UD 3 ML NEB ONE (14:38)
[2025-01-16 16:00] VITALS: BP 122/75; TEMP 98.9; O2SAT 94
[2025-01-16] MEDS ORDERED: CETI10CH PO (16:00)
[2025-01-16] MEDS ORDERED: PRED20TA PO (16:00)
== END 2025-01-16 16:00 | disposition home or self-care (01) ==
LOC: M ED 13:09 → EDBD 13:09 → M ED 16:00
DX: T78.40XA Allergy, unspecified, initial encounter (principal); B34.1 Enterovirus infection, unspecified; F17.210 Nicotine dependence, cigarettes, uncomplicated; Z88.5 Allergy status to narcotic agent; Z88.1 Allergy status to other antibiotic agents; Z79.899 Other long term (current) drug therapy; Z79.52 Long term (current) use of systemic steroids
CPT/HCPCS: 87486; 87581; 87633; 87798; 99284; J7512

== ENCOUNTER 2025-03-28 13:09 | Emergency (ER) | payer OTHER ==
[~2025-03-28] VITALS: Ht 154.9 cm; Wt 92.2 kg
[~2025-03-28 13:09] MED LIST changes: +ATOM18CA PO; +CETI10CH PO; -PROZ20CA12 PO; +PROZ20CA25 PO
[2025-03-28 14:33] LABS: BASO # 0.1 10^3/uL (0.0-0.2); BASO % 0.6 % (0.0-1.0); EOS # 0.1 10^3/uL (0.0-0.5); EOS % 1.1 % (0.0-3.0); LYMPH # 2.1 10^3/uL (1.5-5.0); LYMPH % 18.3 % (24.0-44.0); MONO # 0.6 10^3/uL (0.0-0.8); MONO % 4.7 % (2.0-8.0); NEUTROPHILS # 8.6 10^3/uL (1.5-8.5); NEUTROPHILS % 73.8 % (36.0-66.0); PLATELET COUNT, AUTOMATED 266 10^3/uL (150-450)
[2025-03-28 14:46] LABS: KETONE, URINE AUTO RFX NEGATIVE (NEGATIVE); LEUKOCYTE ESTERASE UR AUTO RFX NEGATIVE (NEGATIVE); MUCUS, URINE RFX SMALL (NEGATIVE); NITRITE, URINE AUTO RFX NEGATIVE (NEGATIVE); RBC, URINE AUTO RFX 1 /HPF (0-3); SQUAM EPITHELIAL CELL UR AURFX 2 /HPF (0-6); WBC, URINE AUTO RFX 1 /HPF (0-3)
[2025-03-28 14:57] LABS: HCG, SERUM QUALITATIVE NEGATIVE (NEGATIVE)
[2025-03-28 14:59] LABS: ALT/SGPT 15 U/L (7.0-40); AST/SGOT 13 U/L (<34); CALCIUM LEVEL 8.5 MG/DL (8.5-10.1); CARBON DIOXIDE LEVEL 21 MMOL/L (20-31); CHLORIDE LEVEL 111 MMOL/L (98-107); CREATININE FOR GFR 0.58 MG/DL (0.55-1.30); GLOMERULAR FILTRATION RATE > 90.0 (>60); POTASSIUM SERUM 4.2 MMOL/L (3.5-5.1); SODIUM LEVEL 142 MMOL/L (136-145)
[2025-03-28] MEDS ORDERED: ISOVUE-370 76% 100 ML VIAL As Ordered ONE (16:39)
[2025-03-28] MEDS: ONDANSETRON 4MG/2ML VIAL IV ONE (16:40)
[2025-03-28] MEDS: KETOROLAC 30 MG/ML 1 ML VIAL IV ONE (16:41)
[2025-03-28] MEDS: NS (Normal Saline) 0.9% 1,000 ML IV ONE (16:42)
[2025-03-28] MEDS ORDERED: KETO-204 PO (18:23)
[2025-03-28 18:31] VITALS: BP 142/83; TEMP 98.3; O2SAT 100
== END 2025-03-28 18:49 | disposition home or self-care (01) ==
LOC: M ED 13:09
DX: N83.292 Other ovarian cyst, left side (principal); K44.9 Diaphragmatic hernia without obstruction or gangrene; E11.9 Type 2 diabetes mellitus without complications; I10 Essential (primary) hypertension; J45.909 Unspecified asthma, uncomplicated; F41.9 Anxiety disorder, unspecified; F32.A Depression, unspecified; Z88.8 Allergy status to other drugs, medicaments and biological substances; Z79.52 Long term (current) use of systemic steroids; Z79.899 Other long term (current) drug therapy
CPT/HCPCS: 74177; 80048; 80076; 81001; 83690; 84703; 85025; 96361; 96374; 96375; 99284; J1885; J2405; J3010; Q9967